=== PATIENT | female | born 1965 | race Caucasian/White ===

== ENCOUNTER 2019-12-06 11:44 | Day surgery (SDC) | payer BC, SELFPAY ==
[2019-11-29 13:01] VITALS: BMI 31.0
--- NOTE | 2019-12-04 09:12 | HO.ANESPROP2 ---
Documented by User: Deirdreher Harrisney 12/04/19 09:13 HPI - Anesthesia Eval Consult details Narrative: 54yo F for Colonoscopy PMFSH Past Medical History Medical History Breast cancer, right History of depression History of superficial phlebitis Family History Family History Mother Breast cancer Paternal Grandfather Heart problem Sister Cirrhosis of liver not due to alcohol Sister No problems noted. Sister No problems noted. Sister No problems noted. Daughter Cirrhosis of liver not due to alcohol Daughter No problems noted. Brother HTN (hypertension) Post traumatic stress disorder (PTSD) Cardiomyopathy Surgical History Surgical History H/O left knee surgery History of lumpectomy of right breast Social History Social History Do you presently have visiting nurse or other home services: No Smoking Status: Never smoker Second Hand Smoke Exposure: No Use of substances other than those prescribed or required for medical reasons: No Have you been hit, kicked, punched, or otherwise hurt by someone within the past year? If so, by whom?: No Advance Directives: Yes Advance Directives Information Provided: No Advance Directives on File: No Meds Allergies Allergy/AdvReac Type Severity Reaction Status Date / Time No Known Allergies Allergy Unverified 11/29/19 12:58 Home Medications Medication Instructions Recorded Confirmed Type aspirin [Aspir-81] 81 mg PO DAILY 11/29/19 11/29/19 History calcium citrate 250 mg PO DAILY 11/29/19 11/29/19 History cholecalciferol (vitamin D3) 25 mcg PO DAILY 11/29/19 11/29/19 History [Vitamin D3] tamoxifen 1 tab PO DAILY 11/29/19 11/29/19 History Exam Exam Date and Time: December 04, 201912 Height,Weight and Vital Signs: Height 5 ft 7 in Weight 89.811 kg Pertinent Lab Results Pertinent Lab Results: Laboratory Tests 08/20/19 08/20/19 09:23 09:23 WBC 6.0 Hgb 12.6 Hct 39.1 Plt Count 274 Sodium 139 Potassium 4.8 Chloride 105 BUN 16 Creatinine 0.74 Assessment and Plan Assessment Anesthesia Assessment: Chart Reviewed Documented by User: Joe Bran MD 12/06/19 12:27 PMFSH Past Medical History Medical History Breast cancer, right History of depression History of superficial phlebitis Family History Family History Mother Breast cancer Paternal Grandfather Heart problem Sister Cirrhosis of liver not due to alcohol Sister No problems noted. Sister No problems noted. Sister No problems noted. Daughter Cirrhosis of liver not due to alcohol Daughter No problems noted. Brother HTN (hypertension) Post traumatic stress disorder (PTSD) Cardiomyopathy Surgical History Surgical History H/O left knee surgery History of lumpectomy of right breast Social History Social History Do you presently have visiting nurse or other home services: No Smoking Status: Never smoker Second Hand Smoke Exposure: No Use of substances other than those prescribed or required for medical reasons: No Have you been hit, kicked, punched, or otherwise hurt by someone within the past year? If so, by whom?: No Advance Directives: Yes Advance Directives Information Provided: No Advance Directives on File: No Meds Allergies Allergy/AdvReac Type Severity Reaction Status Date / Time No Known Allergies Allergy Unverified 11/29/19 12:58 Home Medications Medication Instructions Recorded Confirmed Type aspirin [Aspir-81] 81 mg PO DAILY 11/29/19 11/29/19 History calcium citrate 250 mg PO DAILY 11/29/19 11/29/19 History cholecalciferol (vitamin D3) 25 mcg PO DAILY 11/29/19 11/29/19 History [Vitamin D3] tamoxifen 1 tab PO DAILY 11/29/19 11/29/19 History Exam Airway Mallampati Class: III TM Dist: >3cm Neck ROM: Full Loose/Missing/Broken Teeth: No Heart: rrr Lungs: nl Other: ao Assessment and Plan Assessment Anesthesia Assessment: Anesthesia Plan Discussed and Chart Reviewed Final Anesthetic Review NPO: Yes ASA Class: II Final Preanesthetic Review: No Changes in Pt Med Stat, Meds/Allgs Chart Reviewed, Consent Obtained/Reviewed and Anes Risks/Benef Reviewed Patient Risk: Low Procedure Risk: Low Anesthetic Plan Anesthetic Plan: MAC: Disposition: Standard PACU
[2019-12-06 12:05] VITALS: BP 129/66; PULSE 58; RESP 16; TEMP 36.6; O2SAT 97
[2019-12-06] MEDS: Lactated Ringers 1,000 ML 100 ML IVCONT (12:15)
--- NOTE | 2019-12-06 13:06 | MHC.SHP ---
Pre-Procedural Eval Section A The patient is an INPATIENT: No The History & Physical has been completed within 30 days and I have reviewed it.: No Section B Chief Complaint: Screening Details of Present Illness: Colon cancer screening, Breast Cancer Relevant Family History (Specify if Yes): No Relevant Social History: None Present Medications: see Short Stay Collaborative assessment Medical History: Significant History (Breast cancer 3 years ago--Genetics neg) History of Previous Operations: No relevant previous surgery Allergies: Allergies Allergy/AdvReac Type Severity Reaction Status Date / Time No Known Allergies Allergy Unverified 11/29/19 12:58 Review of Systems Sugical H&P ROS: Negative: Constitution, Cardiovascular, Respiratory and Gastrointestinal Exam Surgical H&P Exam: Normal: HEENT, Normal: Heart, Normal: Lungs, Normal: Extremities and Normal: Abdomen Plan Diagnosis/Plan: Unchanged (colonoscopy) Patient has been examined and remains a candidate for the planned procedure--yes
[2019-12-06 13:42] VITALS: BP 107/66; PULSE 72; RESP 16; TEMP 36.1; O2SAT 97
[2019-12-06 13:57] VITALS: BP 116/46; PULSE 63; RESP 16; O2SAT 100
[2019-12-06 14:06] VITALS: BP 113/62; PULSE 57; RESP 16; TEMP 36.1; O2SAT 100
--- NOTE | 2019-12-06 21:04 | OP_ITS ---
SURGEON: Aliza Aldana MD PREOPERATIVE DIAGNOSIS: Colon cancer screening, history of breast cancer. POSTOPERATIVE DIAGNOSIS: Findings, normal exam. PROCEDURE PERFORMED: Colonoscopy. ESTIMATED BLOOD LOSS: None. COMPLICATIONS: No complications. ANESTHESIA: Monitored. ANESTHESIOLOGIST: Dr. Martin.Dr. Martin. ASSISTANTS: No assistant unit forester. SPECIMENS: No specimens removed. [employer] OFFICER: Dr. Aldana. FINDINGS: Digital rectal exam revealed sphincter tone to be adequate. Video colonoscope was introduced without difficulty. It was navigated into the rectosigmoid, sigmoid on up through descending, transverse, ascending colon. With gentle extrinsic abdominal pressure, we were able to navigate into the cecal cap. Appendiceal orifice was seen. Ileocecal valve was seen. Few areas were flushed and suctioned and good mucosal detail was seen. Circular rotational views on withdrawing the scope. Anorectal verge was clear. No mucosal lesions seen. PLAN AND CURRENT RECOMMENDATIONS: Repeat asymptomatic screening in this patient with the history of breast cancer will be 5 years. GRAFT OR IMPLANTS: No grafts or implants. CONDITION: Postprocedure, stable. Aliza Aldana MD MEN/MODL / [id number] MTDD
== END 2019-12-06 14:42 | disposition home or self-care (01) ==
PROVIDERS: Internal Medicine Gastroenterology; PCP Internal Medicine; Visit Provider Internal Medicine
PROC: 0DJD8ZZ Inspection of Lower Intestinal Tract, Via Natural or Artificial Opening Endoscopic (ICD-10-PCS; CPT 45378; principal; 2019-12-06 12:50)
DX: Z12.11 Encounter for screening for malignant neoplasm of colon (principal); C50.911 Malignant neoplasm of unspecified site of right female breast; Z79.810 Long term (current) use of selective estrogen receptor modulators (SERMs); Z80.3 Family history of malignant neoplasm of breast; Z79.82 Long term (current) use of aspirin; Z79.899 Other long term (current) drug therapy
CPT/HCPCS: 45378

== ENCOUNTER 2020-01-28 09:38 | Outpatient (REF) | payer BC, SELFPAY ==
[2020-01-31 17:57] LABS: HPV mRNA E6/E7 Not Detected (Not Detected)
== END 2020-01-28 09:39 | disposition home or self-care (01) ==
LOC: HO.LAB 09:38
PROVIDERS: Visit Provider Obstetrics & Gynecology
DX: Z01.419 Encounter for gynecological examination (general) (routine) without abnormal findings (principal)
CPT/HCPCS: 87624; 88142

== ENCOUNTER → 2020-02-26 14:45 | Outpatient (BNVA) | payer BC, SELFPAY | PROVIDERS: PCP Internal Medicine; Visit Provider Physician Assistant | DX: Z76.89 Persons encountering health services in other specified circumstances (principal) ==

== ENCOUNTER → 2021-01-29 15:50 | Outpatient (BNVA) | payer BC, SELFPAY | PROVIDERS: PCP Hospitalist; Visit Provider Obstetrics & Gynecology ==

== ENCOUNTER 2021-06-05 10:32 | Outpatient (REF) | payer BC, SELFPAY ==
[2021-06-05 11:35] LABS: Hematocrit 39.4 % (37.0-47.0); Hemoglobin 12.6 g/dl (12.0-16.0); Mean Corpuscular Hemoglobin 29.5 pg (27.0-33.0); Mean Corpuscular Volume 92.3 fL (80.0-98.0); Platelet Count 280 X10*3/uL (160-400); Red Blood Count 4.27 X10*6/uL (4.20-5.50); Red Cell Distribution Width 12.5 % (11.0-16.0); White Blood Count 6.4 X10*3/uL (4.8-10.8)
[2021-06-05 12:22] LABS: Alanine Aminotransferase 13 U/L (0-31); Albumin Level 3.7 g/dL (3.5-5.0); Alkaline Phosphatase 49 U/L (39-117); Anion Gap 12 (12-20); Aspartate Amino Transferase 15 U/L (5-31); Bilirubin Direct 0.3 mg/dL (0.0-0.5); Bilirubin Total 0.9 mg/dL (0.0-1.0); Blood Urea Nitrogen 14 mg/dL (9-16); Calcium 9.7 mg/dL (8.4-10.2); Carbon Dioxide 27 mmol/L (22-29); Chloride 106 mmol/L (96-108); Estimated Glomerular Filt Rate > 60; Glucose Fasting 81 mg/dL (60-99); Sodium 140 mmol/L (135-145); Total Protein 6.7 g/dL (6.5-8.0)
[2021-06-05 12:32] LABS: TSH reflex Free T4 1.94 uIU/mL (0.32-4.0)
== END 2021-06-05 10:33 | disposition home or self-care (01) ==
LOC: HO.LAB 10:32
PROVIDERS: PCP Hospitalist; Visit Provider Hospitalist
DX: Z00.00 Encounter for general adult medical examination without abnormal findings (principal)
CPT/HCPCS: 36415; 80053; 80076; 82248; 84443; 85027

== ENCOUNTER 2021-12-10 11:58 | Outpatient (REF) | payer BC, SELFPAY ==
[2021-12-10 12:58] LABS: Influenza A PCR NEGATIVE (Negative); Influenza B PCR NEGATIVE (Negative); Resp Syncy Virus RNA Qual PCR NEGATIVE (Negative); SARS COV2 PCR INHOUSE NEGATIVE (Negative)
== END 2021-12-10 11:59 | disposition home or self-care (01) ==
LOC: HO.LNP 11:58
PROVIDERS: Visit Provider Nurse Practitioner Family
DX: Z20.822 Contact with and (suspected) exposure to COVID-19 (principal); J06.9 Acute upper respiratory infection, unspecified
CPT/HCPCS: 0241U

== ENCOUNTER 2022-03-01 08:47 | Outpatient (REF) | payer BC, SELFPAY ==
[2022-03-01 11:59] LABS: TSH reflex Free T4 1.97 uIU/mL (0.32-4.0)
== END 2022-03-01 08:48 | disposition home or self-care (01) ==
LOC: HO.HMGCLDS 08:47
PROVIDERS: PCP Hospitalist; Visit Provider Nurse Practitioner Family
DX: R22.1 Localized swelling, mass and lump, neck (principal)
CPT/HCPCS: 36415; 84443

== ENCOUNTER 2022-03-01 13:03 | Outpatient (REF) | payer BC, SELFPAY ==
--- NOTE | ~2022-03-01 | US_ITS ---
EXAMINATION: US SOFT TISSUE NECK CLINICAL INFORMATION: Localized swelling, mass and lump. COMPARISON: None TECHNIQUE: Ultrasound of the neck soft tissues is performed with high- frequency vee-scale imaging and color Doppler. FINDINGS: THYROID BED: The thyroid gland appears symmetrical in size and echotexture. Imaging of the anterior and lower neck reveals no soft tissue swelling, mass or abnormal lymph nodes. US/US soft tiss head and/or neck IMPRESSION: No abnormal soft tissue mass, lymph nodes or fluid seen in anterior thyroid neck.
== END 2022-03-01 13:04 | disposition home or self-care (01) ==
LOC: HO.HMGCX 13:03
PROVIDERS: PCP Hospitalist; Visit Provider Nurse Practitioner Family
DX: R22.1 Localized swelling, mass and lump, neck (principal)
CPT/HCPCS: 76536

== ENCOUNTER 2023-02-10 14:47 | Outpatient (AMB) | payer BC, SELFPAY ==
[2023-02-10 14:48] VITALS: BP 122/74; BMI 32.6
--- NOTE | 2023-02-10 14:48 | A.OFFVIS_ITS ---
Intake Vital Signs 02/10/23 14:48 Height 5 ft 7 in Weight 208 lb BMI 32.6 BP 122/74 Intake Visit Reasons: Annual Intake Note: no concerns Manager Spa Required: No Information Interpreted: non-clinical & clinical Proposal Consultant: Proposal Consultant Present (Maria Esther JULIEN) Accompanied by: Self / Same As Patient Allergies No Known Allergies Allergy (Verified 02/10/23 14:54) Post menopausal: Yes HPI HPI Comments History of Present Illness Details Presenting for annual exam. No complaints. Last Pap/HPV was negative in 02/09 Last Mammogram was done this year an outside facility and was negative according to the patient Last Colonoscopy was in 12/10, the recommendation was to repeat in 5 years [facility] Medical History Acid reflux History of superficial phlebitis History of depression Breast cancer, right Surgical History History of lumpectomy of right breast H/O left knee surgery Family History Mother Breast cancer Paternal Grandfather Heart problem Sister Cirrhosis of liver not due to alcohol Sister No problems noted. Sister No problems noted. Sister No problems noted. Daughter Cirrhosis of liver not due to alcohol Daughter No problems noted. 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 Sexual orientation: Straight/Heterosexual Gender identity: Female Female Reproductive History Menstrual Age of Menarche: 12 Menopause type: natural Total pregnancies: 2 Full term: 2 Number of Living Children: 2 Date of last pap smear: 01/29/20 Review of Systems Const All systems reviewed & are unremarkable except as noted in HPI and below Card Reports as per HPI Resp Reports as per HPI GI Reports as per HPI and Reports no additional complaints Reports as per HPI Physical Exam Vital Signs: BMI result Body Mass Index 32.6 Const General: cooperative, healthy appearing and comfortable Chest Chest palpation & inspection: normal inspection of the chest and normal p alpation of entire chest wall Breast/axilla inspection: normal inspection of the breasts and normal inspection of the axillae Breast/axilla palpation: normal palpation of the breasts, normal palpation of the axillae and no axillary lymphadenopathy Resp Effort & Inspection: normal respiratory effort Auscultation: clear to auscultation bilaterally Percussion: percussion normal Cardio Palpation: normal PMI Rate: regular rate Rhythm: regular rhythm Heart sounds: no murmurs and no rubs Peripheral pulses: Peripheral pulses 2+ throughout GI Inspection: Yes normal to inspection Palpation (GI): Soft to palpation, nontender, no guarding, not rigid and No hepatosplenomegaly present Percussion: Yes normal to percussion Auscultation: normal bowel sounds Rectal Exam - Female: deferred General: Yes bladder normal to palpation External Female Exam: No lesion Speculum Exam - Vagina: normal appearance of the vagina, normal palpation, normal vaginal discharge and not erythematous Speculum Exam - Cervix: normal appearance of the cervix and normal palpation Bimanual exam- vagina & uterus: normal bimanual exam, normal palpation, uterine size normal, bladder normal to palpation, consistency normal and normal palpation Bimanual Exam- Adnexa, other: normal adnexae, no masses and no tenderness Assessment & Plan Assessment & Plan (1) Well woman exam: Code(s): Z01.419 - Encounter for gynecological examination (general) (routine) without abnormal findings Plan: Co testing not indicated this year. Counseled the patient about the recommended dietary allowance of 1200 mg of Calcium & 600 IU of vitamin D. Instructions given the patient to schedule next year screen Mammogram The patient was instructed to perform monthly self-breast exams and schedule annual exam in a year. All questions answered and the patient verbalized understanding. Coding Level of Care Code Est Pt Prev Care 40-64y(71935) Diagnoses Well woman exam Z01.419
== END 2023-02-10 15:11 | disposition home or self-care (01) ==
LOC: HO.HWS 14:47
PROVIDERS: PCP Family Medicine; Visit Provider Obstetrics & Gynecology
DX: Z01.419 Encounter for gynecological examination (general) (routine) without abnormal findings (principal)
CPT/HCPCS: 99396

== ENCOUNTER → 2023-02-10 14:47 | Outpatient (BNVA) | payer BC, SELFPAY | PROVIDERS: PCP Family Medicine; Visit Provider Obstetrics & Gynecology ==

== ENCOUNTER 2023-04-02 09:15 | Outpatient (AMB) | payer BC, SELFPAY ==
--- NOTE | 2023-04-02 10:20 | MHC.OFFWIV ---
Intake Vital Signs 04/02/23 10:21 Height 5 ft 7 in Weight 208 lb BMI 32.6 BP 140/80 H Blood Pressure Location Rt brachial Position Sitting Pulse 73 Pulse Source Pulse Oximeter Temp 98.2 F Temp Source Oral Pulse Oximetry (%) 98 Intake Visit Reasons: EST/rash all over body([phone]) Intake Note: Pt is here today c/o rash all over body Patient Tobacco Use Status: Never used Tobacco Allergies No Known Allergies Allergy (Verified 04/02/23 10:21) HPI EST/rash all over body([phone]) HPI Details Patient with a few weeks of small petechial lesions over bilateral lower extremities. She has been worked up by urgent Care, and is pending PCP appointment in 2 weeks to follow up with her labs, which all came back unremarkable except for positive JARAD. She reports no obvious bleeding otherwise, although she does give history of having a surface blood clot to the left foot, but denies DVT, and states that she normally has some pedal edema on the left lower leg with a sock line apparent ever since having left knee surgeries in the past. She states that the fluid in her leg/s do not appear different than normal. She denies fever chills, body aches, fatigue, joint pain, dark-colored or obvious bloody urine, nasal congestion, cough, shortness of breath or wheezing, numbness or tingling of her extremities, chest pain or abdominal pain or dark colored or coffee-ground stools, or other symptoms suggestive of systemic vasculitis or underlying disease. She is extremely anxious about this however, as she reports that it started initially in the lower legs and now is increased to include the entirety of her bilateral lower extremities. She does have a breast cancer history, and states that she is worried that this is cancerous, and is losing sleep from it. Her appointment with PCP is to transfer care from nurse practitioner to another PCP in the same group, and 2 weeks as the soonest they could see her apparently. Reviewed past medical history with the patient. [facility] Medical History Acid reflux History of superficial phlebitis History of depression Breast cancer, right Surgical History History of lumpectomy of right breast H/O left knee surgery Family History Mother Breast cancer Paternal Grandfather Heart problem Sister Cirrhosis of liver not due to alcohol Sister No problems noted. Sister No problems noted. Sister No problems noted. Daughter Cirrhosis of liver not due to alcohol Daughter No problems noted. 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 Sexual orientation: Straight/Heterosexual Gender identity: Female Female Reproductive History Menstrual Age of Menarche: 12 Review of Systems Const All systems reviewed & are unremarkable except as noted in HPI and below Physical Exam Vital Signs: Last Vital Signs Temp 98.2 F 04/02/23 10:21 Pulse 73 04/02/23 10:21 BP 140/80 H 04/02/23 10:21 Pulse Ox 98 04/02/23 10:21 BMI result Body Mass Index 32.6 Const General: cooperative, healthy appearing, comfortable, no acute distress, alert, awake, Physically active, anxious and well groomed; No diaphoretic, ill appearing, intoxicated appearing, poor hygiene or tired appearing Nutritional Appearance: average body habitus Orientation/consciousness: patient oriented x3 Limitations: no limitations Eyes General: appearance normal, both eyes and all related structures Resp Effort & Inspection: normal respiratory effort, able to speak in complete sentences, no audible wheezes, no cough, no grunting, not labored, no nasal flaring, no retractions and symmetric chest movement Cardio Rate: regular rate Rhythm: regular rhythm Skin Other: Scattered nonblanching petechial lesions throughout the bilateral lower extremities, all small and only a few mm in size Neuro General: patient oriented x3 Extrem Right lower extremity: full ROM, edema Details: non-pitting and foot Details: vascular exam Details: posterior tibial pulse present; no cyanosis; no cyanosis Left lower extremity: full ROM, edema Details: non-pitting and foot Details: warmth and vascular exam Details: posterior tibial pulse present; no cyanosis Psych Appearance: grossly normal Mental Status: mental status grossly normal Speech and movement: Normal speech and movement present Affect: normal affect Attitude: cooperative Thought process: Normal thought process present Insight: Good insight present (Psych) Judgement: Good judgement present (Psych) Results AMB Urinalysis, Automated UA Leukoctes 70 Deangelo/uL Last Edit by Aurora Gunter CMA on 04/02/23 11:27 UA Nitrite Negative Last Edit by Aurora Gunter CMA on 04/02/23 11:27 UA Urobilinogen 0.2 mg/dL Last Edit by Aurora Gunter CMA on 04/02/23 11:27 UA Protein 0 mg/dL Last Edit by Aurora Gunter CMA on 04/02/23 11:27 UA pH 6.0 Last Edit by Aurora Gunter CMA on 04/02/23 11:27 UA Blood 0 Jatinder/uL Last Edit by Aurora Gunter CMA on 04/02/23 11:27 UA Specific Hungry Horse 1.025 Last Edit by Aurora Gunter CMA on 04/02/23 11:27 UA Ketone Last Edit by Aurora Gunter CMA on 04/02/23 11:27 UA Bilirubin 0 mg/dL Last Edit by Aurora Gunter CMA on 04/02/23 11:27 UA Glucose 0 mg/dL Last Edit by Aurora Gunter CMA on 04/02/23 11:27 Results Reviewed Results Reviewed: Laboratory Last Values Urine pH (Auto) 6.0 04/02/23 11:24 Specific Hungry Horse (Auto) 1.025 04/02/23 11:24 Urine Protein (Auto) 0 mg/dL 04/02/23 11:24 Glucose (UA)(Auto) 0 mg/dL 04/02/23 11:24 Urine Blood (Auto) 0 Jatinder/uL 04/02/23 11:24 Urine Nitrite (Auto) Negative 04/02/23 11:24 Urine Bilirubin (Auto) 0 mg/dL 04/02/23 11:24 Urine Urobilinogen (Auto) 0.2 mg/dL 04/02/23 11:24 Leukocyte Esterase (Auto) 70 Deangelo/uL 04/02/23 11:24 Assessment & Plan Assessment & Plan (1) Cutaneous vasculitis: Code(s): 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 She does have some very mild pedal edema with the left worse than the right, which apparently has been normal for her since left knee surgery in the past. She has no other symptoms indicative of underlying disease or systemic vasculitis, and her urine test shows no blood on exam today. I did order a PT INR, as well as ANCA labs today. When these are back, I will forward them to Dr. Gimenez, who will be her new PCP. We discussed having an no salt intake, and monitoring her weight, and monitoring for any other changes until she can get into her primary care. I also advised that she call her primary care on Tuesday and let them know that she was at the walk-in and that I had advised that she be seen within the next week or so, so that they do not push her appointment out any further. She states that she does not have a judge clerk that could see her any sooner. She will likely need referral to Heme-Onc, which she can discuss with PCP at that time. Orders: Orders AMB Urinalysis Automated 04/02/23 Z13.9 - Encounter for screening, unspecified Prothrombin Time INR 04/02/23 R23.3 - Spontaneous ecchymoses ANCA Vasculitides 04/02/23 R23.3 - Spontaneous ecchymoses Coding Level of Care Code Est Pt Level 4 (67188) Diagnoses Cutaneous vasculitis L95.9
[2023-04-02 10:21] VITALS: BP 140/80; PULSE 73; TEMP 36.8; O2SAT 98; BMI 32.6
== END 2023-04-02 12:57 | disposition home or self-care (01) ==
PROVIDERS: PCP Family Medicine; Visit Provider Physician Assistant Medical
DX: L95.9 Vasculitis limited to the skin, unspecified (principal); R23.3 Spontaneous ecchymoses
CPT/HCPCS: 81003; 99214

== ENCOUNTER 2023-04-02 11:52 | Outpatient (REF) | payer BC, SELFPAY ==
[2023-04-02 13:46] LABS: Prothrombin Time 11.6 SEC (11.1-13.3)
[2023-04-04 13:34] LABS: Myeloperoxidase Antibody <1.0 AI; Proteinase 3 PR3 Antibodies <1.0 AI
== END 2023-04-02 11:53 | disposition home or self-care (01) ==
LOC: HO.HMGCLDS 11:52
PROVIDERS: PCP Family Medicine; Visit Provider Physician Assistant Medical
DX: R23.3 Spontaneous ecchymoses (principal)
CPT/HCPCS: 36415; 85610; 86021

== ENCOUNTER 2023-04-15 09:05 | Outpatient (AMB) | payer BC, SELFPAY ==
[2023-04-15 09:07] VITALS: BP 126/72; PULSE 71; RESP 12; O2SAT 97; BMI 32.6
--- NOTE | 2023-04-15 09:07 | MHC.PC.OV ---
Vital Signs 04/15/23 09:07 Height 5 ft 7 in Weight 208 lb BMI 32.6 BP 126/72 Blood Pressure Location Rt brachial Position Sitting Respiration 12 Pulse 71 Pulse Source Pulse Oximeter Pulse Oximetry (%) 97 Oxygen Delivery Method Room Air Intake Visit Reasons: CARLOS from [facility] Intake Note: Patient is here to transfer care from to . Patient reports she has been battling petechiae for about 2 weeks. Patient reports she was seen at [facility] and was also seen at [facility] had multiple labs drawn and now would like to know what her next steps are. 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 Required: No Accompanied by: Self / Same As Patient Allergies No Known Allergies Allergy (Verified 04/15/23 09:32) Medication List - Last Reconciled 04/15/23 by LYNN Parmar- calcium citrate 250 mg PO DAILY cholecalciferol (vitamin D3) (Vitamin D3) 25 mcg PO DAILY fluticasone propionate 50 mcg/actuation 1 spray intranasal DAILY Tobacco use date assessed: 05/24/22 Dental Screening Dental Screen Date: 04/15/23 Did you have a dental visit in the last 12 months?: No Did you have a dental problem in the last 6 months where you did not have access to dental care?: No Was dental information given to patient?: Patient has dentist (Dr. 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/ER/WA positive diagnosed January 2017 status post lumpectomy, completed radiation therapy 04/11/2017, completed tamoxifen therapy January 2022, Negative BRCA gene mutation 02/01/2017, GERD, MDD , seasonal allergies, vitamin-D deficiency Status post left knee surgery Specialists [facility] Health maintenance Colonoscopy 12/06/2019 normal, repeat in 5 years due to history of breast cancer (2024) Mammogram 01/20/2023 DEXA Pap/HPV negative January 2020 Last set of labs 06/05/2021 Here today,est care with me, c/o petechiae Two weeks ago, 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 went to for this - reports labs done reviewd today. 03/30/23, then 04/02/23 Only abnormal lab was JARAD yesterday it spontaneously resolved. Today the petechiae returned. Assoc sx include left leg feels tingly. admits sedentary job, wonders if stress or this caused her problem not taking RX meds does not smoke, not on estrogen. Denies chest pain or SOB. Denies neuro deficits. no etoh use no surgery or travel prior to onset denies trauma to abd or legs had a phlebitis in [place] in 2013 [facility] Medical History (Updated 04/15/23 @ 14:33 by Reyna Scott, [facility]) History of superficial phlebitis Breast cancer, right Surgical History History of lumpectomy of right breast H/O left knee surgery Family History Mother Breast cancer Paternal Grandfather Heart problem Sister Cirrhosis of liver not due to alcohol Sister No problems noted. Sister No problems noted. Sister No problems noted. Daughter Cirrhosis of liver not due to alcohol Daughter No problems noted. 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 1. Little interest or pleasure in doing things: not at all 2. Feeling down, depressed, or hopeless: not at all 3. Trouble falling or staying asleep, or sleeping too much: not at all 4. Feeling tired or having little energy: not at all 5. Poor appetite or overeating: not at all 6. Feeling bad about yourself - or that you are a failure or have let yourself or your family down: not at all 7. Trouble concentrating on things, such as reading the newspaper or watching television: not at all 8. Moving or speaking so slowly that other people could have noticed. Or the opposite - being so fidgety or restless that you have been moving around a lot more than usual: not at all 9. Thoughts that you would be better off or of hurting yourself in some way: not at all Total score: 0 Depression Screening Interpretation: Negative Depression Screening Done: Yes 29009 - PHQ-9 Billing: Yes Source: Developed by Drs. Addi Albright, Yaritza Johnson, Joseph Dey and colleagues, with an educational chris from [employer]. Thrive Questionnaire Date Thrive assessed: 04/15/23 I am a: Patient What is your living situation today?: I have a steady place to live Within the past 12 months, did the food you bought not last and you didn't have the money to get more?: Never true Within the past 12 months, did you worry whether your food would run out before you got money to buy more?: Never true Do you have trouble paying for medicines?: No Do you have trouble getting transportation to medical appointments?: No Do you have trouble paying your heating and electricity bill?: No Do you have trouble taking care of your child, family member or friend?: No Do you have trouble with day-to-day activities such as bathing, preparing meals, shopping, managing finances, etc.?: No Are you currently unemployed and looking for a job?: No Are you interested in more education?: No Please select the resources that you would like help with: None Currently or been in a relationship where the following occur: no concerns reported THRIVE Score: 0 AUDIT C Alcohol Use Questionnaire (AUDIT-C) 1. How often do you have a drink containing alcohol?: Never 3. How often do you have six or more drinks on one occasion?: Never Total Score: 0 GRAYSON-7 AMB Questionnaire GRAYSON-7 Date GRAYSON - 7 assessed: 04/15/23 Feeling nervous, anxious, or on edge: 2 = More than half the days Not being able to stop or control worryin = More than half the days Worrying too much about different things: 2 = More than half the days Trouble relaxin = More than half the days Being so restless that it is hard to sit still: 0 = Not at all Becoming easily annoyed or irritable: 0 = Not at all Feeling afraid as if something awful might happen: 2 = More than half the days Total GRAYSON-7 score (0-4 normal; 5-9 mild; 10-14 moderate; 15-21 severe): 10 Source: Developed by Drs. Addi Albright, Yaritza Johnson, Joseph Dey and colleagues, with an educational chris from [employer]. GRAYSON-7 Assessment Billing GRAYSON-7 Assessment Tool: GRAYSON-7 Assessment 92713 Review of Systems Const All systems reviewed & are unremarkable except as noted in HPI and below Physical exam (Primary Care) Vital Signs: Last Vital Signs Pulse 71 04/15/23 09:07 Resp 12 04/15/23 09:07 BP 126/72 04/15/23 09:07 Pulse Ox 97 04/15/23 09:07 Oxygen Delivery Method Room Air 04/15/23 09:07 BMI result Body Mass Index 32.6 Tobacco/Smoking Status: Tobacco use Status Tobacco use date assessed 05/24/22 04/15/23 09:12 Patient Tobacco Use Status Never used Tobacco 04/15/23 09:21 e-Cigarette/Vaping Use Never Used 04/15/23 09:21 PHQ-9: PHQ-9 Score PHQ-9: Total score 0 04/15/23 14:34 Depression Screening Interpretation: Negative Thrive Assessment: Date of Thrive Assessment Date Thrive assessed 04/15/23 04/15/23 09:23 Currently or been in a relationship where the following occur: no concerns reported Const Other: awake alert RRR LS CTAB BLE + petechiae RLE>LLE, RLE +1 edema from toes to ankle, nonpalp PP, dusky, toes cool to touch. LLE decreased but palp PP, toes mildly cool to touch,trace edema Assessment and Plan Assessment & Plan (1) Petechial eruption: Code(s): R23.3 - Spontaneous ecchymoses Plan: BLE, concern for DVT. R/O US today done and negative. Patient is aware I am unsure of the cause for her petechial like rash present on exam today. We have discussed the treatment plan going forward. We will place referral both to dermatology as well as Rheumatology. The thought is that she may be able to get into Dermatology sooner and get an answer. If this is the case she will cancel the appointment with Rheumatology which will likely be booked out several months. She does have the positive JARAD however it is a weak positive and aware that it is nonspecific. I have advised her to take pictures of the rash to document this should not be present when she has an appointment with Dermatology or Rheumatology. (2) Edema: Code(s): R60.9 - Edema, unspecified Qualifiers: Edema type: localized Qualified Code(s): R60.0 - Localized edema (3) Breast cancer: Comment: right ductal carcinoma in situ lower outer quad/ER/WA +, BRCA negative dx 01/2017, status post lumpectomy, completed radiation therapy 04/11/2017, completed tamoxifen therapy January 2022. Managed by [facility] Code(s): C50.919 - Malignant neoplasm of unspecified site of unspecified female breast Qualifiers: Breast location: lower outer quadrant of breast Estrogen receptor status: positive Laterality: right Patient sex: female Qualified Code(s): C50.511 - Malignant neoplasm of lower-outer quadrant of right female breast; Z17.0 - Estrogen receptor positive status [ER+] (4) MDD (major depressive disorder), recurrent episode: Comment: PHQ negative today. Not currently on medications. We will continue to follow at future visits to ensure that symptoms do not come back. Code(s): F33.9 - Major depressive disorder, recurrent, unspecified Qualifiers: Major depression episode severity: mild Qualified Code(s): F33.0 - Major depressive disorder, recurrent, mild (5) JARAD positive: Comment: 1:80 nucleolar 03/2023 Code(s): R76.8 - Other specified abnormal immunological findings in serum Plan This note is constructed using voice recognition software. While every effort has been made to ensure accuracy in intelligence group supervisor, still errors may have been included Sometimes, these errors may affect the content or meaning of the given sentence . Total time spent caring for the patient today was 45 minutes. This includes time spent before the visit reviewing the chart, time spent during the visit, and time spent after the visit on documentation Patient will see me again in May as scheduled sooner if needed. Orders: Orders US venous duplex LE BI Today C50.919 - Malignant neoplasm of unspecified site of unspecified female breast, F33.9 - Major depressive disorder, recurrent, unspecified Referrals Dermatology Referral R23.3 - Spontaneous ecchymoses Rheumatology Referral R23.3 - Spontaneous ecchymoses, R76.8 - Other specified abnormal immunological findings in serum Coding Level of Care Code Est Pt Level 5 (36145) Diagnoses Petechial eruption R23.3 Localized edema R60.0 Edema type: localized Malignant neoplasm of lower-outer quadrant of right breast of female, estrogen receptor positive C50.511; Z17.0 Breast location: lower outer quadrant of breast Estrogen receptor status: positive Laterality: right Patient sex: female Mild episode of recurrent major depressive disorder F33.0 Major depression episode severity: mild JARAD positive R76.8 Additional Codes GRAYSON-7 Assessment Billing - GRAYSON-7 Assessment Tool: GRAYSON-7 Assessment 55001 ([id number])
== END 2023-04-15 10:20 | disposition home or self-care (01) ==
PROVIDERS: PCP Family Medicine; Visit Provider Nurse Practitioner Family
DX: R23.3 Spontaneous ecchymoses (principal); C50.511 Malignant neoplasm of lower-outer quadrant of right female breast; F33.0 Major depressive disorder, recurrent, mild; R60.0 Localized edema; Z17.0 Estrogen receptor positive status [ER+]; R76.8 Other specified abnormal immunological findings in serum
CPT/HCPCS: 99215

== ENCOUNTER 2023-04-15 11:03 | Outpatient (REF) | payer BC, SELFPAY ==
--- NOTE | ~2023-04-15 | US_ITS ---
EXAMINATION: BILATERAL LOWER EXTREMITY DEEP VENOUS ULTRASOUND CLINICAL INFORMATION: Bilateral lower extremity edema. COMPARISON: No similar prior examinations are available for comparison. TECHNIQUE: Duplex Doppler imaging with compression maneuvers were performed of the bilateral lower extremity deep venous systems. FINDINGS: The bilateral visualized common femoral, femoral and popliteal veins demonstrate normal compressibility and color flow without evidence of venous thrombosis. Visualized portions of the bilateral calf veins demonstrate normal color fill-in suggesting patency. There is no evidence of a Rosenberg's cyst. US/US venous duplex LE BI IMPRESSION: No evidence of deep venous thrombosis involving the bilateral lower extremities.
== END 2023-04-15 11:04 | disposition home or self-care (01) ==
LOC: HO.US 11:03
PROVIDERS: Visit Provider Nurse Practitioner Family
DX: R60.0 Localized edema (principal); F33.9 Major depressive disorder, recurrent, unspecified
CPT/HCPCS: 93970

== ENCOUNTER 2023-05-04 10:56 | Outpatient (REF) | payer BC, SELFPAY ==
--- NOTE | ~2023-05-04 | XR_ITS ---
EXAMINATION: XR CHEST CLINICAL INFORMATION: Cough. COMPARISON: None available. TECHNIQUE: 2 views of the chest were obtained. FINDINGS: No significant abnormality is noted involving the heart, lungs, mediastinum, bony thorax or soft tissues. XR/XR chest 2V IMPRESSION: Unremarkable chest examination.
[2023-05-04 12:27] LABS: Erythrocyte Sedimentation Rate 11 MM/HR (0-20)
== END 2023-05-04 10:57 | disposition home or self-care (01) ==
LOC: HO.LAB 10:56
PROVIDERS: PCP Nurse Practitioner Family; Visit Provider Physician Assistant
DX: M31.0 Hypersensitivity angiitis (principal); R05.9 Cough, unspecified
CPT/HCPCS: 36415; 71046; 85652; 86140

== ENCOUNTER 2023-05-09 14:47 | Outpatient (AMB) | payer BC, SELFPAY ==
[2023-05-09 15:03] VITALS: BP 112/60; PULSE 66; O2SAT 97; BMI 32.8
--- NOTE | 2023-05-09 15:03 | MHC.OFFVIS ---
Intake Vital Signs 05/09/23 15:03 Height 5 ft 7 in Weight 209 lb 10.554 oz BMI 32.8 BP 112/60 Blood Pressure Location Rt brachial Position Sitting Pulse 66 Pulse Source Pulse Oximeter Pulse Oximetry (%) 97 Oxygen Delivery Method Room Air Intake Visit Reasons: Spontaneous ecchymoses/abnormal lab Intake Note: New patient presents today for +JARAD consult. 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 Patient states that on 03/30 she came back home from work and noticed that both her legs and feet were covered in small reddish dots associated with burning and mild swelling of her ankles. Bilateral lower extremity ultrasound was negative for DVT. 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 labs showed negative MPO /PR3, positive JARAD 1-80 nucleolar chest x-ray was negative.She was started on a tapering course of prednisone starting at 60 mg daily tapered of in about 9 days with resolution of the rashes on her feet but shortly after she started having rashes on her arms abdomen and breasts. those are also improving. Three days ago She was started on colchicine by her servomechanism designer. She cannot tell whether she is improving with that. She denies any side effects related to prednisone or colchicine. Patient denies any cough, shortness of breath, blood or froth in urine. Denies fevers or Unintentional weight loss. she denies taking any new medications prior to development of her rashes. She stated that in January she had a cough that lasted about a month then self-resolved. She denies any abdominal pain. She is unaware of any family history of an autoimmune rheumatic disease. Patient had 2 pregnancies with no abortions or miscarriages. [facility] Medical History History of superficial phlebitis Breast cancer, right Surgical History History of lumpectomy of right breast H/O left knee surgery Family History Mother Breast cancer Paternal Grandfather Heart problem Sister Cirrhosis of liver not due to alcohol Sister No problems noted. Sister No problems noted. Sister No problems noted. Daughter Cirrhosis of liver not due to alcohol Daughter No problems noted. 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 Sexual orientation: Straight/Heterosexual Gender identity: Female Cognitive needs: No Hearing needs: No Vision needs: Yes (wears glasses) Female Reproductive History Menstrual Age of Menarche: 12 Review of Systems Const Denies fever(s) and Denies weight loss Card Denies dyspnea Resp Denies cough and Denies dyspnea GI Denies abdominal pain Denies hematuria Musc Denies arthralgias Skin/Breast Reports lesions, Reports rash and Reports unusual bruising Psych Reports anxiety Physical Exam Vital Signs: Last Vital Signs Pulse 66 05/09/23 15:03 BP 112/60 05/09/23 15:03 Pulse Ox 97 05/09/23 15:03 Oxygen Delivery Method Room Air 05/09/23 15:03 BMI result Body Mass Index 32.8 Const General: cooperative, healthy appearing and comfortable HEENT Head: Yes normocephalic and Yes atraumatic Mouth: moist mucous membranes Resp Effort & Inspection: normal respiratory effort and able to speak in complete sentences Auscultation: clear to auscultation bilaterally Skin Other: Extrem Other: No active synovitis Normal nail fold capillaroscopy Results Reviewed Results Reviewed: Skin biopsy 04/2023? Left lateral proximal pretibial region? Changes consistent with early/evolving leukocytoclastic vasculitis Comment:? Direct immunofluorescence may be helpful in further evaluation of this process.? No fungi are detected with PAS stain JARAD 80 nucleolar HIV 1/2 negative? 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 Skin biopsy confirming leukocytoclastic vasculitis. Will order comprehensive serology to screen for underlying systemic vasculitis. Picture however seems rather consistent with non-systemic vasculitis. Patient just started colchicine a few days ago. I suggested a longer steroid taper 6-8 weeks, patient will reach out to her servomechanism designer and get back to me (2) JARAD positive: Comment: 1:80 nucleolar 03/2023 Code(s): R76.8 - Other specified abnormal immunological findings in serum Plan: will check further sub serologies Plan I spent 56 minutes reviewing patient's chart, evaluating patient, ordering diagnostic workup, counseling patient and documenting in the chart Orders: Orders Complete Blood Count Auto Diff 05/09/23 L95.9 - Vasculitis limited to the skin, unspecified Comprehensive Met. Panel 05/09/23 L95.9 - Vasculitis limited to the skin, unspecified Erythrocyte Sedimentation Rate 05/09/23 L95.9 - Vasculitis limited to the skin, unspecified Immunofixation Pnl, Serum 05/09/23 L95.9 - Vasculitis limited to the skin, unspecified HLA B27 05/09/23 M45.9 - Ankylosing spondylitis of unspecified sites in spine Complement C3 05/09/23 M32.9 - Systemic lupus erythematosus, unspecified Protein Creatinine Ratio, Ur 05/09/23 M32.9 - Systemic lupus erythematosus, unspecified Scleroderma 12 Panel 05/09/23 M34.9 - Systemic sclerosis, unspecified C1q Antibody IgG 05/09/23 C1Q Complement Component 05/09/23 L95.9 - Vasculitis limited to the skin, unspecified C Reactive Protein 05/09/23 L95.9 - Vasculitis limited to the skin, unspecified Hepatitis A,B,C Profile 05/09/23 Z11.59 - Encounter for screening for other viral diseases Protein Electrophoresis, Serum 05/09/23 L95.9 - Vasculitis limited to the skin, unspecified ANCA Vasculitides 05/09/23 L95.9 - Vasculitis limited to the skin, unspecified Anti Extractable Nuclear Ag 05/09/23 M32.9 - Systemic lupus erythematosus, unspecified Anti DNA DS Antibody 05/09/23 M32.9 - Systemic lupus erythematosus, unspecified Complement C4 05/09/23 M32.9 - Systemic lupus erythematosus, unspecified DNA Double Stranded-Crithidia 05/09/23 M32.9 - Systemic lupus erythematosus, unspecified Sjogren's Antibodies 05/09/23 M32.9 - Systemic lupus erythematosus, unspecified UA w Microscopic 05/09/23 M32.9 - Systemic lupus erythematosus, unspecified Cyclic Citrullinated Peptide 05/09/23 M05.20 - Rheumatoid vasculitis with rheumatoid arthritis of unspecified site HLA B51 Behcet's Disease 05/09/23 L95.9 - Vasculitis limited to the skin, unspecified Coding Level of Care Code New Pt Level 5 (64033) Diagnoses Vasculitis determined by biopsy of skin L95.9 JARAD positive R76.8
== END 2023-05-09 15:49 | disposition home or self-care (01) ==
PROVIDERS: PCP Nurse Practitioner Family; Visit Provider Student in an Organized Health Care Education/Training Program
DX: L95.9 Vasculitis limited to the skin, unspecified (principal); R76.8 Other specified abnormal immunological findings in serum
CPT/HCPCS: 99205

== ENCOUNTER 2023-05-09 14:47 | Outpatient (REF) | payer BC, SELFPAY ==
[2023-05-09 16:14] LABS: MANUAL DIFF FLAG NO
[2023-05-09 16:58] LABS: Basophils Absolute Auto 0.1 X10*3/uL (0.0-0.2); Basophils Percent Auto 0.6 % (0-2); Eosinophils Absolute Auto 0.4 X10*3/uL (0.0-0.4); Eosinophils Percent Auto 4.3 % (0-4); Hematocrit 43.1 % (37.0-47.0); Hemoglobin 14.1 g/dl (12.0-16.0); Imm Gran Abs Auto 0.05 X10*3/uL (0.00-0.03); Imm Gran Pct Auto 0.6 % (0.0-0.4); Lymphocytes Absolute Auto 3.3 X10*3/uL (1.2-4.9); Lymphocytes Percent Auto 38.8 % (20-40); Mean Corpuscular HGB Conc 32.7 g/dl (31.0-35.0); Mean Corpuscular Hemoglobin 29.4 pg (27.0-33.0); Monocytes Absolute Auto 0.8 X10*3/uL (0.1-1.2); Monocytes Percent Auto 9.7 % (2-11); Neutrophils Absolute Auto 3.9 x10*3/uL (2.0-8.3); Platelet Count 309 X10*3/uL (160-400); Red Blood Count 4.79 X10*6/uL (4.20-5.50); White Blood Count 8.4 X10*3/uL (4.8-10.8)
[2023-05-09 17:35] LABS: Alanine Aminotransferase 46 U/L (0-31); Albumin Level 3.8 g/dL (3.5-5.0); Alkaline Phosphatase 101 U/L (39-117); Anion Gap 11 (12-20); Aspartate Amino Transferase 31 U/L (5-31); Bilirubin Total 0.6 mg/dL (0.0-1.0); Blood Urea Nitrogen 14 mg/dL (9-16); C Reactive Protein 0.59 mg/dL (< or = 0.50); Calcium 9.3 mg/dL (8.4-10.2); Carbon Dioxide 28 mmol/L (22-29); Chloride 104 mmol/L (96-108); Estimated Glomerular Filt Rate > 60; Glucose Random 101 mg/dL (60-115); Potassium 3.8 mmol/L (3.3-5.1); Sodium 139 mmol/L (135-145)
[2023-05-09 17:44] LABS: Appearance Urine Clear; Color Urine Yellow; Glucose Urine UA Negative (Negative); Leukocyte Esterase Urine Negative (Negative); Nitrite Urine Negative (Negative); Specific Gravity - Urine 1.025 (1.005-1.025); Urine Blood Negative (Negative); Urine Ketones Negative (Negative); Urine Protein Negative (Neg-Trace)
[2023-05-09 17:50] LABS: Bacteria Urine None Seen (None Seen); Hyaline Casts Urine 0-2 /LPF (0-2); RBC Urine 0-2 /HPF (0-2); WBC Urine 0-5 /HPF (0-5)
[2023-05-09 18:08] LABS: Creatinine Urine 148.69 mg/dL; Total Protein Urine Random < 7 mg/dL (<12)
[2023-05-09 18:58] LABS: Erythrocyte Sedimentation Rate 7 MM/HR (0-20)
[2023-05-10 08:20] LABS: HBc Num1 0.07 S/CO (0.00-0.79); HBsAGNum1 0.38 S/CO (0.00-0.99); Hepatitis A Antibody IgM 0.29 Index (0-0.79); Hepatitis B Core Antibody Nonreactive (Nonreactive); Hepatitis B Surface Antigen Negative (Negative); ~HepC Num1 0.06 S/CO (0.00-0.79); ~Hepatitis A Antibody IgM Nonreactive (Nonreactive); ~Hepatitis B Surface Antibody NONREACTIVE (Nonreactive); ~Hepatitis C Antibody Nonreactive (Nonreactive)
[2023-05-10 20:47] LABS: Anti DNA DS Antibody <1 IU/mL; Antibody to SS-A Antigen <1.0 NEG AI (<1.0 NEG); Antibody to SS-B Antigen <1.0 NEG AI (<1.0 NEG); Myeloperoxidase Antibody <1.0 AI; Proteinase 3 PR3 Antibodies <1.0 AI; SM/Ribonucleoprotein Ab <1.0 NEG AI (<1.0 NEG); Smith Protein <1.0 NEG AI (<1.0 NEG)
[2023-05-11 13:59] LABS: Complement C3 142 mg/dL (83-193)
[2023-05-11 15:13] LABS: Cyclic Citrullinated Peptide <16 UNITS
[2023-05-11 22:08] LABS: Prot Elec - Albumin 3.6 g/dL (3.8-4.8); Prot Elec - Alpha1 0.3 g/dL (0.2-0.3); Prot Elec - Alpha2 0.8 g/dL (0.5-0.9); Prot Elec - Beta 1 0.5 g/dL (0.4-0.6); Prot Elec - Beta 2 0.5 g/dL (0.2-0.5); Prot Elec - Gamma 0.9 g/dL (0.8-1.7); Prot Elec - Total Protein 6.5 g/dL (6.1-8.1)
[2023-05-12 10:08] LABS: IgA 461 mg/dL (47-310); IgG 984 mg/dL (600-1640); IgM 50 mg/dL (50-300)
[2023-05-12 15:38] LABS: DNAds, Crithidia Antibody Negative (Negative)
[2023-05-12 18:04] LABS: HLA B27 Negative (Negative)
[2023-05-13 16:28] LABS: HLA B51 Comments See Comments; HLA B51 Method PCR SSOP
[2023-05-13 19:28] LABS: C1Q Complement Component 6.3 mg/dL (5.0-8.6)
[2023-05-18 16:28] LABS: C1q Antibody IgG <1 RU/mL (<26)
[2023-05-24 20:13] LABS: Centromere Protein A Ab <11 SI (<11); Centromere Protein B Ab <11 SI (<11); Fibrillarin Ab <11 SI (<11); PM SCL 100 Ab <11 SI (<11); PM SCL 75 Ab <11 SI (<11); RNA Polymerase III RP11 Ab <11 SI (<11); RNA Polymerase III RP155 Ab <11 SI (<11); SCL-70 Extractable Nuclear Ab <11 SI (<11); Th-To Ab <11 SI (<11); U1 SNRNP RNP 70KD <11 SI (<11); U1 SNRNP RNP A <11 SI (<11); U1 SNRNP RNP C <11 SI (<11)
== END 2023-05-09 14:48 | disposition home or self-care (01) ==
LOC: HO.LAB 14:47
PROVIDERS: PCP Nurse Practitioner Family; Visit Provider Student in an Organized Health Care Education/Training Program
DX: Z11.59 Encounter for screening for other viral diseases (principal); M32.9 Systemic lupus erythematosus, unspecified; M05.20 Rheumatoid vasculitis with rheumatoid arthritis of unspecified site; M34.9 Systemic sclerosis, unspecified; Z72.89 Other problems related to lifestyle
CPT/HCPCS: 36415; 80053; 81001; 81374; 82570; 82784; 83516; 84156; 84165; 84182; 85025; 85652; 86021; 86140; 86160; 86200; 86225; 86235; 86255; 86334; 86704; 86706; 86709; 86803; 86812; 87340

== ENCOUNTER 2023-05-21 17:50 | Emergency (ER) | payer BC, SELFPAY ==
--- NOTE | ~2023-05-21 | XR_ITS ---
EXAMINATION: XR ANKLE, RIGHT CLINICAL INFORMATION: Fall. Pain. COMPARISON: None available. TECHNIQUE: AP, lateral, and mortise views of the right ankle. FINDINGS: There is moderate lateral malleolar soft tissue swelling. No visible acute fracture or dislocation seen. The ankle mortise and subtalar joints are normal. There is a small calcaneal heel enthesophyte. XR/XR ankle RT min 3V IMPRESSION: 1. Moderate lateral malleolar soft tissue swelling likely ligamentous injury. No visible acute fracture or dislocation seen. 2. Small calcaneal heel enthesophyte.
[2023-05-21 18:22] VITALS: BP 144/72; PULSE 76; RESP 18; TEMP 36.7; O2SAT 98; BMI 33.2
--- NOTE | 2023-05-21 19:24 | ED_ITS ---
HPI - Extremity Injury (Lower) General Chief Complaint: Extremity Injury, Lower Stated Complaint: fell down stairs, ankle inj Time Seen by Provider: 05/21/23 19:04 History of Present Illness HPI Narrative: patient complains of right ankle pain after rolling it after she missed a step this morning, she did not fall there is no other injury no other complaint no numbness weakness or tingling no laceration Related Data Home Medications Medication Instructions Recorded Confirmed calcium citrate 250 mg PO DAILY 11/29/19 12/10/21 cholecalciferol (vitamin D3) 25 25 mcg PO DAILY 11/29/19 12/10/21 mcg (1,000 unit) capsule (Vitamin D3) fluticasone propionate 50 1 spray intranasal DAILY 02/04/22 mcg/actuation nasal spray,suspension colchicine 0.6 mg capsule mg PO 05/09/23 Previous Rx's Medication Instructions Recorded prednisone 10 mg tablet See Rx Instructions PO .COMPLEX 05/10/23 #168 tabs Allergies Allergy/AdvReac Type Severity Reaction Status Date / Time No Known Allergies Allergy Verified 05/09/23 15:06 [facility] Past Medical History Source: nursing notes reviewed Medical History History of superficial phlebitis Breast cancer, right Surgical History History of lumpectomy of right breast H/O left knee surgery Family History Family History Mother Breast cancer Paternal Grandfather Heart problem Sister Cirrhosis of liver not due to alcohol Sister No problems noted. Sister No problems noted. Sister No problems noted. Daughter Cirrhosis of liver not due to alcohol Daughter No problems noted. Brother HTN (hypertension) Post traumatic stress disorder (PTSD) Cardiomyopathy Social History Social History Household Members: Spouse Housing: House Are you a primary medicare nurse to a significant other at home: No Do you presently have visiting nurse or other home services: No Alcohol intake: current Alcohol intake frequency: holidays/special occasions only Patient Tobacco Use Status: Never used Tobacco Smoked in Last 30 Days: No e-Cigarette/Vaping Use: Never Used Second Hand Smoke Exposure: No Use of substances other than those prescribed or required for medical reasons: No Advance Directives: No Advance Directives Information Provided: No Patient : No service: No Current occupational status: employed 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 Sexual orientation: Straight/Heterosexual Gender identity: Female Cognitive needs: No Hearing needs: No Vision needs: Yes (wears glasses) Physical Exam Vital Signs: Vital Signs: Last Vital Signs Temp 98.0 F 05/21/23 18:22 Pulse 76 05/21/23 18:22 Resp 18 05/21/23 18:22 BP 144/72 H 05/21/23 18:22 Pulse Ox 98 05/21/23 18:22 O2 Del Method Room Air 05/21/23 18:22 BMI result Body Mass Index 33.2 general appearance no acute distress, comfortable cooperative Head normocephalic atraumatic Neck is supple Respiratory no distress The back has full range of motion Extremities the right ankle is tender and swollen around lateral malleolus with some ecchymosis Right knee and foot are nontender knee has low normal range of motion Other extremities are normal with full range of motion in left lower extremity and both upper extremities Course Course Course Narrative: right ankle x-ray is negative except for soft tissue swelling Patient is given Aircast and crutches and discharged Discharge Plan Discharge Clinical Impression: Right ankle sprain Patient Disposition: Home, Self-Care Additional Instructions: x-ray did not show any broken bones so you have a sprained ankle Follow as needed with orthopedist or primary doctor if not improving in 1-2 weeks Return any time any worse condition or any concerns You can use Tylenol or Motrin available [id number] as needed, apply ice Prescriptions: No Action prednisone 10 mg tablet See Rx Instructions PO .COMPLEX Qty: 168 0RF Rx Instructions: Take 6 tabs daily for 1 week, 5 tabs daily for 1 week, 4 tabs daily for 1 week, 3 tabs daily for 1 week, 2 tabs daily for 2 weeks and 1 tab daily for 2 weeks then stop cholecalciferol (vitamin D3) [Vitamin D3] 25 mcg (1,000 unit) Capsule 25 mcg PO DAILY calcium citrate 250 mg calcium Tablet 250 mg PO DAILY fluticasone propionate 50 mcg/actuation spray,suspension 1 spray intranasal DAILY colchicine 0.6 mg capsule PO Referrals: Meliton Agustin MD [Physician] - ( right ankle injury) Stand Alone Forms: Work/School Release
[2023-05-21 19:31] VITALS: BP 127/73; PULSE 72; RESP 18; TEMP 36.8
== END 2023-05-21 19:37 | disposition home or self-care (01) ==
PROVIDERS: Emergency Provider Emergency Medicine Emergency Medical Services
DX: S93.401A Sprain of unspecified ligament of right ankle, initial encounter (principal); X50.1XXA Overexertion from prolonged static or awkward postures, initial encounter; Y93.9 Activity, unspecified; Y92.9 Unspecified place or not applicable; Y99.9 Unspecified external cause status
CPT/HCPCS: 73610; 99283

== ENCOUNTER 2023-05-26 14:40 | Outpatient (AMB) | payer BC, SELFPAY ==
--- NOTE | 2023-05-26 14:41 | A.OFFPC_ITS ---
Vital Signs 05/26/23 14:42 Height 5 ft 7 in Weight 213 lb 6 oz BMI 33.4 BP 133/65 Blood Pressure Location Lt brachial Position Sitting Respiration 12 Pulse 70 Pulse Source Pulse Oximeter Pulse Oximetry (%) 96 Oxygen Delivery Method Room Air Intake Visit Reasons: CARLOS Spanish Instructor Required: No Accompanied by: Self / Same As Patient Allergies No Known Allergies Allergy (Verified 05/26/23 15:07) Medication List - Last Reconciled 05/26/23 by LYNN Parmar- calcium citrate 250 mg PO DAILY cholecalciferol (vitamin D3) (Vitamin D3) 25 mcg PO DAILY colchicine twice per day, taper to 1 time per day and then stop (RXd by Derm) fluticasone propionate 50 mcg/actuation 1 spray intranasal DAILY Tobacco use date assessed: 05/26/23 Dental Screening Dental Screen Date: 04/15/23 HPI HPI Comments History of Present Illness Details 58-year-old female breast 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 diagnosed January 2017 status post lumpectomy, completed radiation therapy 04/11/2017, completed tamoxifen therapy January 2022, Negative BRCA gene mutation 02/01/2017, GERD, MDD , seasonal allergies, vitamin-D deficiency, vasculitis Status post left knee surgery 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 Biopsy was done which confirmed vasculitis. She was treated with prednisone taper for 9 days. Unfortunately during the taper she broke out with worsening petechiae. I was able to see these pictures that she sent them to me via the portal. She then was evaluated by [facility]. Multiple labs were done. A recommendation for 8 weeks of prednisone was made however ultimate treatment was deferred to Dermatology. Dermatology opted to treat her with colchicine 0.6 mg b.i.d. this resolved her petechiae. At the current date she remains on colchicine 0.6 mg b.i.d. and has no petechial hemorrhages. She will be tapering this. Next follow up with Rheumatology is 06/07/2023. Does not have a follow up with Dermatology for vasculitis scheduled. She is tolerating the colchicine although was having some diarrhea. Reports this is manageable. Unfortunately on Tuesday she missed a step while carrying boxes on her stairs she fell and sprained her right ankle. She did go to [facility]'s Emergency room for evaluation and treatment. This workup was reviewed. The right ankle continues to be quite swollen, painful when bearing weight. She is wearing the ankle brace and walking with a cane. Has an appointment with [facility] on 06/07/2023. Lots of anxiety during the time of the petechial outbreak however reports that this is well controlled now that she knows what has caused the petechiae and there is a treatment plan. Does not feel that she needs any counseling at this time. [facility] Medical History History of superficial phlebitis Breast cancer, right Surgical History History of lumpectomy of right breast H/O left knee surgery Family History (Updated 05/26/23 @ 14:53 by Juany Che [facility]) Mother Breast cancer Paternal Grandfather Heart problem Sister Cirrhosis of liver not due to alcohol Sister No problems noted. Sister No problems noted. Sister No problems noted. Sister Cirrhosis of liver not due to alcohol Daughter No problems noted. 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 Depression Screening Interpretation: Negative Depression Screening Done: Yes Source: Developed by Drs. Addi Albright, Yaritza Johnson, Joseph Dey and colleagues, with an educational chris from [employer]. Thrive Questionnaire Date Thrive assessed: 04/15/23 GRAYSON-7 AMB Questionnaire GRAYSON-7 Date GRAYSON - 7 assessed: 04/15/23 Source: Developed by Drs. Addi Albright, Yaritza Johnson, Joseph Dey and colleagues, with an educational chris from [employer]. Review of Systems Const All systems reviewed & are unremarkable except as noted in HPI and below Physical exam (Primary Care) Vital Signs: Last Vital Signs Pulse 70 05/26/23 14:42 Resp 12 05/26/23 14:42 BP 133/65 05/26/23 14:42 Pulse Ox 96 05/26/23 14:42 Oxygen Delivery Method Room Air 05/26/23 14:42 BMI result Body Mass Index 33.4 Tobacco/Smoking Status: Tobacco use Status Tobacco use date assessed 05/26/23 05/26/23 14:53 Patient Tobacco Use Status Never used Tobacco 05/26/23 14:53 e-Cigarette/Vaping Use Never Used 05/26/23 14:53 Depression Screening Interpretation: Negative Thrive Assessment: Date of Thrive Assessment Date Thrive assessed 04/15/23 05/26/23 14:53 Const Other: awake alert RRR LS CTAB Right foot/ankle edematous, ecchymotic, toes mildly cool to touch, cap refill WNL. Antalgic gait. Right ankle wrapped w/ SANDEEP wrap and air cast reapplied. Skin w/o petechiae Assessment and Plan Assessment & Plan (1) Right ankle sprain: Comment: initial appt with [facility] 06/07/2023. Encouraged to apply the Sandeep wrap in the morning, followed by her Aircast. Use cane to offload pressure. Elevate as much as possible. Apply warm moist compresses in the evening. Remove Sandeep wrap after work and before going to bed. Monitor skin integrity. Code(s): S93.401A - Sprain of unspecified ligament of right ankle, initial encounter Qualifiers: Encounter type: subsequent encounter Involved ligament of ankle: other ligament Qualified Code(s): S93.491D - Sprain of other ligament of right ankle, subsequent encounter (2) Breast cancer: Comment: right ductal carcinoma in situ lower outer quad/ER/IA +, BRCA negative dx 01/2017, status post lumpectomy, completed radiation therapy 04/11/2017, completed tamoxifen therapy January 2022. Managed by [facility] Code(s): C50.919 - Malignant neoplasm of unspecified site of unspecified female breast Qualifiers: Breast location: lower outer quadrant of breast Estrogen receptor status: positive Laterality: right Patient sex: female Qualified Code(s): C50.511 - Malignant neoplasm of lower-outer quadrant of right female breast; Z17.0 - Estrogen receptor positive status [ER+] (3) Vitamin D deficiency: Comment: DEXA ordered. To be done in follow up 2023 at [facility]. 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 Currently being followed by [facility]. Appointment to review results 06/07/2023. Petechiae is currently resolved with colchicine. Code(s): L95.9 - Vasculitis limited to the skin, unspecified Plan This note is constructed using voice recognition software. While every effort has been made to ensure accuracy in human capital analyst, still errors may have been included Sometimes, these errors may affect the content or meaning of the given sentence . Total time spent caring for the patient today was 60 minutes. This includes time spent before the visit reviewing the chart, time spent during the visit, and time spent after the visit on documentation Orders: Orders XR DEXA axial skeleton 12/23/23 C50.511 - Malignant neoplasm of lower-outer quadrant of right female breast, E55.9 - Vitamin D deficiency, unspecified, Z17.0 - Estrogen receptor positive status [ER+] Patient Instructions: Return to office in July for routine follow-up sooner if needed Coding Level of Care Code Est Pt Level 5 (08715) Diagnoses Sprain of other ligament of right ankle, subsequent encounter S93.491D Encounter type: subsequent encounter Involved ligament of ankle: other ligament Malignant neoplasm of lower-outer quadrant of right breast of female, estrogen receptor positive C50.511; Z17.0 Breast location: lower outer quadrant of breast Estrogen receptor status: positive Laterality: right Patient sex: female Vitamin D deficiency E55.9 JARAD positive R76.8 Vasculitis determined by biopsy of skin L95.9
[2023-05-26 14:42] VITALS: BP 133/65; PULSE 70; RESP 12; O2SAT 96; BMI 33.4
== END 2023-05-26 15:50 | disposition home or self-care (01) ==
PROVIDERS: PCP Family Medicine; Visit Provider Nurse Practitioner Family
DX: S93.491A Sprain of other ligament of right ankle, initial encounter (principal); C50.511 Malignant neoplasm of lower-outer quadrant of right female breast; Z17.0 Estrogen receptor positive status [ER+]; E55.9 Vitamin D deficiency, unspecified; R76.8 Other specified abnormal immunological findings in serum; L95.9 Vasculitis limited to the skin, unspecified
CPT/HCPCS: 99215

== ENCOUNTER 2023-06-07 08:00 | Outpatient (AMB) | payer BC, SELFPAY ==
--- NOTE | 2023-06-07 08:04 | MHC.OFFVIS ---
Intake Vital Signs 06/07/23 08:05 Height 5 ft 7 in Weight 212 lb 1.355 oz BMI 33.2 BP 118/64 Blood Pressure Location Rt brachial Position Sitting Pulse 69 Pulse Source Pulse Oximeter Pulse Oximetry (%) 96 Oxygen Delivery Method Room Air Intake Visit Reasons: Vasculitis Intake Note: Patient last seen 05/09/23 presents today for follow up and test results. Custom Decorating Consultant Required: No Accompanied by: Self / Same As Patient Allergies No Known Allergies Allergy (Verified 06/07/23 08:06) Medication List - Last Reconciled 06/07/23 by Ignacio Chaudhry MD calcium citrate 250 mg PO DAILY cholecalciferol (vitamin D3) (Vitamin D3) 25 mcg PO DAILY colchicine twice per day, taper to 1 time per day and then stop (RXd by Derm) fluticasone propionate 50 mcg/actuation 1 spray intranasal DAILY HPI HPI Comments History of Present Illness Details Patient returns for follow-up after completion of her diagnostic workup. She states that she did not take the prednisone as prescribed by me. She was advised by her senior oracle developer to not take the prednisone and remain on colchicine. She had been taking colchicine twice a day for some time until last week when she reduced it to once daily. It has been causing some diarrhea. The vasculitic rashes seem to have almost completely resolved. She has been having some itchy skin rashes on the inner aspect of her left sole. But she states that those rashes are different. Initial history: This is a 58-year-old female who presents for evaluation of skin lesions. Patient states that on 03/30 she came back home from work and noticed that both her legs and feet were covered in small reddish dots associated with burning and mild swelling of her ankles. Bilateral lower extremity ultrasound was negative for DVT. 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 labs showed negative MPO /PR3, positive JARAD 1-80 nucleolar chest x-ray was negative.She was started on a tapering course of prednisone starting at 60 mg daily tapered of in about 9 days with resolution of the rashes on her feet but shortly after she started having rashes on her arms abdomen and breasts. those are also improving. Three days ago She was started on colchicine by her senior oracle developer. She cannot tell whether she is improving with that. She denies any side effects related to prednisone or colchicine. Patient denies any cough, shortness of breath, blood or froth in urine. Denies fevers or Unintentional weight loss. she denies taking any new medications prior to development of her rashes. She stated that in January she had a cough that lasted about a month then self-resolved. She denies any abdominal pain. She is unaware of any family history of an autoimmune rheumatic disease. Patient had 2 pregnancies with no abortions or miscarriages. [facility] Medical History History of superficial phlebitis Breast cancer, right Surgical History History of lumpectomy of right breast H/O left knee surgery Family History Mother Breast cancer Paternal Grandfather Heart problem Sister Cirrhosis of liver not due to alcohol Sister No problems noted. Sister No problems noted. Sister No problems noted. Sister Cirrhosis of liver not due to alcohol Daughter No problems noted. 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 Sexual orientation: Straight/Heterosexual Gender identity: Female Cognitive needs: No Hearing needs: No Vision needs: Yes (wears glasses) Female Reproductive History Menstrual Age of Menarche: 12 Review of Systems Skin/Breast Reports pruritus, Denies lesions and Reports rash Physical Exam Vital Signs: Last Vital Signs Pulse 69 06/07/23 08:05 BP 118/64 06/07/23 08:05 Pulse Ox 96 06/07/23 08:05 Oxygen Delivery Method Room Air 06/07/23 08:05 BMI result Body Mass Index 33.2 Const General: cooperative, healthy appearing and comfortable HEENT Head: Yes normocephalic and Yes atraumatic Mouth: moist mucous membranes Resp Effort & Inspection: normal respiratory effort and able to speak in complete sentences Auscultation: clear to auscultation bilaterally Skin Other: Vasculitic rashes seen last visit have resolved. Minimal scabbed lesions on inner aspect of left sole. Extrem Other: No active synovitis Normal nail fold capillaroscopy Results Reviewed Results Reviewed: Skin biopsy 04/2023? Left lateral proximal pretibial region? Changes consistent with early/evolving leukocytoclastic vasculitis Comment:? Direct immunofluorescence may be helpful in further evaluation of this process.? No fungi are detected with PAS stain JARAD nucleolar HIV 1/2 negative? 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 Skin biopsy confirming leukocytoclastic vasculitis. There are no signs suggestive of systemic vasculitis. Comprehensive serology is unremarkable. Rashes resolved with colchicine prescribed by Dermatology. Continue to follow-up with Dermatology. Discussed symptoms and signs suggestive of systemic vasculitis. Patient can follow-up with me as needed (2) JARAD positive: Comment: 1:80 nucleolar 03/2023 Code(s): R76.8 - Other specified abnormal immunological findings in serum Plan: With no signs suggestive of systemic autoimmune rheumatic disease. Comprehensive sub serologies are unremarkable. 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
[2023-06-07 08:05] VITALS: BP 118/64; PULSE 69; O2SAT 96; BMI 33.2
== END 2023-06-07 08:19 | disposition home or self-care (01) ==
PROVIDERS: PCP Nurse Practitioner Family; Visit Provider Student in an Organized Health Care Education/Training Program
DX: L95.9 Vasculitis limited to the skin, unspecified (principal); R76.8 Other specified abnormal immunological findings in serum
CPT/HCPCS: 99214

== ENCOUNTER → 2023-06-07 08:00 | Outpatient (BNVA) | payer BC, SELFPAY | PROVIDERS: PCP Nurse Practitioner Family; Visit Provider Student in an Organized Health Care Education/Training Program ==

== ENCOUNTER 2023-06-07 14:45 | Outpatient (AMB) | payer BC, SELFPAY ==
--- NOTE | 2023-06-07 14:58 | A.OFFVIS_ITS ---
Intake Intake Visit Reasons: N/P Right ankle sprain 05/21/23 Intake Note: Patty is a 58 year old female who presents today as a new patient for a evaluation for her right ankle sprain, DOI 05/21/23. Patient reports carrying 2 [employer] packages and she missed a step where she heard a crunch. She express that it looks better when it first happened. She does have some swelling and bruises on the lateral aspect of the foot. Allergies No Known Allergies Allergy (Verified 06/07/23 15:01) HPI N/P Right ankle sprain 05/21/23 HPI Details 58-year-old female who presents in the o ffice today, as a new patient, for an evaluation of right ankle pain. Patient presented to the ED on 05/21/2023 status post missing a step causing her to twist the ankle. X-rays of the right ankle were obtained. She was placed in an air cast and given crutches. While in the office today the patient reported carrying 2 [employer] packages when she missed a step and heard a crack. She feels the ankle looks better now than when the injury occurred. She confirms some edema and ecchymosis on the lateral aspect of the right foot. Patient presents in the office wear sneakers. She states her PCP transitioned her to an KHOA wrap. She reports burning that runs up the right lower extremity. She states she was instructed to use heat by her PCP, but she felt better using the ice and went back to using that. 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 Patient has a history of multiple left knee surgeries. [facility] Medical History History of superficial phlebitis Breast cancer, right Surgical History History of lumpectomy of right breast H/O left knee surgery Family History Mother Breast cancer Paternal Grandfather Heart problem Sister Cirrhosis of liver not due to alcohol Sister No problems noted. Sister No problems noted. Sister No problems noted. Sister Cirrhosis of liver not due to alcohol Daughter No problems noted. 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 Sexual orientation: Straight/Heterosexual Gender identity: Female Cognitive needs: No Hearing needs: No Vision needs: Yes (wears glasses) Female Reproductive History Menstrual Age of Menarche: 12 Review of Systems Const All systems reviewed & are unremarkable except as noted in HPI and below Physical Exam Const General: cooperative and no acute distress Orientation/consciousness: patient oriented x3 Resp Effort & Inspection: normal respiratory effort and able to speak in complete sentences Cardio Peripheral pulses: Peripheral pulses 2+ throughout Skin General skin exam: no rashes or lesions noted Neuro General: patient oriented x3 Extrem Other: Right ankle: Moderate edema over the lateral malleolus extending to the plantar aspect of the right foot. Slight tenderness to palpation over the peroneal tendons. Able to dorsiflex and plantarflex, inversion and eversion with mild limitations. Sensation intact. Pedal pulse intact. Assessment & Plan Assessment & Plan (1) Moderate right ankle sprain: Code(s): S93.401A - Sprain of unspecified ligament of right ankle, initial encounter Qualifiers: Encounter type: initial encounter Qualified Code(s): S93.401A - Sprain of unspecified ligament of right ankle, initial encounter Plan Ms. Adamson is a 58-year-old female who presents in the office today, as a new patient, for an evaluation of right ankle pain. Patient presented to the ED on 05/21/2023 status post missing a step causing her to twist the ankle. X-rays of the right ankle were obtained. She was placed in an air cast and given crutches. While in the office today the patient reported carrying 2 [employer] packages when she missed a step and heard a crack. She feels the ankle looks better now than when the injury occurred. She confirms some edema and ecchymosis on the lateral aspect of the right foot. Patient presents in the office wear sneakers. She states her PCP transitioned her to an KHOA wrap. She reports burning that runs up the right lower extremity. She states she was instructed to use heat by her PCP, but she felt better using the ice and went back to using that. 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 Patient has a history of multiple left knee surgeries. Discussed treatment options of wearing an KHOA wrap or a boot to help with healing. I strongly recommend laying down to elevate the ankle above the level of the heart and icing the ankle as much as possible. She was given a tall walking boot, off the shelf, to wear when she is to be up for longer periods of time like at work. She was given an KHOA wrap off the shelf to wear under the boot. She can use Tylenol or Ibuprofen for pain and edema. We discussed the role of PT. However, she has very good ROM in the office today. I anticipate discontinuing the use of the boot in 2 weeks. Follow up will be in 2 weeks via telephone for a check in on the edema and ROM, or sooner if needed. X-rays of the right ankle, obtained on 05/21/2023, revealed: 1. Moderate lateral malleolar soft tissue swelling likely ligamentous injury. No visible acute fracture or dislocation seen. 2. Small calcaneal heel enthesophyte. Patient Instructions: Scribed by Ivania Weathers medical coding manager, for Alesha Avendano PA-C on 06/07/2023 at 2:51 pm, EST. Coding Level of Care Code New Pt Level 4 (13565) Diagnoses Moderate right ankle sprain, initial encounter S93.401A Encounter type: initial encounter
== END 2023-06-07 15:36 | disposition home or self-care (01) ==
PROVIDERS: Visit Provider Physician Assistant
DX: S93.401A Sprain of unspecified ligament of right ankle, initial encounter (principal)
CPT/HCPCS: 99203

== ENCOUNTER 2023-06-24 12:45 | Outpatient (AMB) | payer BC, SELFPAY ==
--- NOTE | 2023-06-24 12:46 | MHC.OFFVIS ---
Intake Visit Reasons: Tel-Right ankle sprain 05/21/23-follow up Allergies No Known Allergies Allergy (Verified 06/07/23 15:01) HPI HPI Tel-Right ankle sprain 05/21/23-follow up: Details: 58-year-old female who presents via telehealth for a follow up of a right ankle sprain that occurred on 05/21/2023 status post missing a step causing her to twist her ankle. I last saw the patient in the office on 06/07/2023 when she was placed in a tall walking boot and strongly encouraged to elevate the ankle above the heart. She was given an KHOA wrap to wear under the boot. Overall, the patient is doing well. She reports she has minimal discomfort, that occurs mostly when going downstairs. She reports this discomfort along the medial aspect of the right ankle. Overwise, she has no pain. [facility], [facility] Medical History History of superficial phlebitis Breast cancer, right Surgical History History of lumpectomy of right breast H/O left knee surgery Family History Mother Breast cancer Paternal Grandfather Heart problem Sister Cirrhosis of liver not due to alcohol Sister No problems noted. Sister No problems noted. Sister No problems noted. Sister Cirrhosis of liver not due to alcohol Daughter No problems noted. 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 Telehealth Telehealth Telehealth Platform: Telephone Location of provider rendering services: practice address Location of patient: address on file Patient Identification confirmed using: Name, : Yes Telehealth method: voice only Patient verbally consented to treatment: Yes Patient verbally consented to billing insurance company: Yes Patient informed of any privacy concerns related to visit: Yes Minutes spent on Phone/Video with Pt.: 10 Assessment & Plan Assessment & Plan (1) Moderate right ankle sprain: Code(s): S93.401A - Sprain of unspecified ligament of right ankle, initial encounter Category: Medical Qualifiers: Encounter type: initial encounter Qualified Code(s): S93.401A - Sprain of unspecified ligament of right ankle, initial encounter Plan Ms. Adamson is a 58-year-old female who presents via telehealth for a follow up of a right ankle sprain that occurred on 05/21/2023 status post missing a step causing her to twist her ankle. I last saw the patient in the office on 06/07/2023 when she was placed in a tall walking boot and strongly encouraged to elevate the ankle above the heart. She was given an KHOA wrap to wear under the boot. Overall, the patient is doing well. She reports she has minimal discomfort, that occurs mostly when going downstairs. She reports this discomfort along the medial aspect of the right ankle. Overwise, she has no pain. Patient will discontinue the use of the boot at this time. We discussed the role of formal physical therapy, but she continues to have great ROM and has gradual resolving symptoms. We would both like to see how she progresses over the next several weeks. If she is not happy with her progression or is concerned about anything she can reach out to the office and I will be happy to see her. Otherwise, follow up will be PRN, or sooner if needed. Patient Instructions: Scribed by Ivania Weathers medical staff manager, for Alesha Avendano PA-C on 06/24/2023 at 12:56 pm, EST. Coding Level of Care Code Tele Est Pt Level 3 (41281) Diagnoses Moderate right ankle sprain, initial encounter S93.401A Encounter type: initial encounter
== END 2023-06-24 12:46 | disposition home or self-care (01) ==
PROVIDERS: PCP Nurse Practitioner Family; Visit Provider Physician Assistant
DX: S93.401A Sprain of unspecified ligament of right ankle, initial encounter (principal)
CPT/HCPCS: 99441

== ENCOUNTER → 2023-06-24 12:45 | Outpatient (BNVA) | payer BC, SELFPAY | PROVIDERS: PCP Nurse Practitioner Family; Visit Provider Physician Assistant ==

== ENCOUNTER 2023-08-17 08:29 | Outpatient (AMB) | payer BC, SELFPAY ==
[2023-08-17 08:37] VITALS: BP 118/60; PULSE 68; O2SAT 96; BMI 32.9
--- NOTE | 2023-08-17 08:37 | A.OFFPC_ITS ---
Vital Signs 08/17/23 08:37 Height 5 ft 7 in Weight 210 lb BMI 32.9 BP 118/60 Blood Pressure Location Lt brachial Position Sitting Pulse 68 Pulse Source Pulse Oximeter Pulse Oximetry (%) 96 Oxygen Delivery Method Room Air Intake Visit Reasons: CPE Intake Note: Patient is here for her physical today. Allergies No Known Allergies Allergy (Verified 08/17/23 08:58) Medication List - Last Reconciled 08/17/23 by Reyna Scott [employer]SEMBLER- calcium citrate 250 mg PO DAILY cholecalciferol (vitamin D3) (Vitamin D3) 25 mcg PO DAILY colchicine mg PO fluticasone propionate 50 mcg/actuation 1 spray intranasal DAILY Tobacco use date assessed: 08/17/23 Dental Screening Dental Screen Date: 04/15/23 HPI HPI Comments History of Present Illness Details Gracie 58-year-old female breast cancer 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 in lower outer quadrant/ER/PA positive diagnosed January 2017 status post lumpectomy, completed radiation therapy 04/11/2017, completed tamoxifen therapy January 2022, Negative BRCA gene mutation 02/01/2017, GERD, MDD , seasonal allergies, vitamin-D deficiency, nonsystemic vasculitis, pilar cyst scalp, obesity Status post left knee surgery [facility] 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 Health Maintenance reviewed. In regards to her vasculitis, the last rheumatology note from May was reviewed. She reports today that after she completed cold Bonding Agent 0.6 mg p.o. b.i.d. in May her petechia completely resolved. She was given an 8 week course of prednisone by Rheumatology however she never needed this. She has no further follow up scheduled with Rheumatology at this time. She does have a follow up with Dermatology for a skin surveillance. Over the past few weeks she noticed recurrence of petechiae on bilateral anterior lower extremities. She is under a lot of stress as the current time. And she wonders if stresses the outbreaks other than that she can not find any correlating triggers. She admits confusion about what to do when she has the petechiae and is looking for some advisement. Also reports a patch of eczema on her right shoulder. Reports that as a child she had eczema outbreaks during periods of stress. This area has also returned in the setting of stress. She has a bump on the top of her head. It is painless. It has been present for several years. Has not changed since onset. She just wonders what this. She had a right ankle sprain at the time of the last visit, she has had a consultation with Orthopedics since this time. Notes reviewed. Right ankle is improving, only pain when going downstairs. She is managing well without any additional intervention. Seasonal allergies well controlled with Flonase Taken daily and calcium and vitamin-D Plan: Continue Flonase Continue calcium and vitamin-D Get shingles vaccine, otherwise her up-to-date on her health maintenance items. Cont to use colchicine 0.6 mg p.o. b.i.d. at first onset of petechiae and use for 1 week past resolution, would like to keep of prednisone. If needing to use pulse therapy more often, could consider using daily suppressive therapy versus refer back to Rheumatology should she need chronic prednisone. There was also a mention of methotrexate. Again if she needs a sort of treatment mole refer to rheumatology. Hydrocortisone or OTC topical steroid to right shoulder eczema until resolved Pilaris cyst- Benign cyst on scalp no tx needed BMI 32.9 lifestyle modifications encouraged Return to office in 6 months to follow up on vasculitis, sooner as needed. COUNTS INCLUDE 234 BEDS AT THE [facility] Medical History History of superficial phlebitis Breast cancer, right Surgical History History of lumpectomy of right breast H/O left knee surgery Family History Mother Breast cancer Paternal Grandfather Heart problem Sister Cirrhosis of liver not due to alcohol Sister No problems noted. Sister No problems noted. Sister No problems noted. Sister Cirrhosis of liver not due to alcohol Daughter No problems noted. 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 Addi Albright, Yaritza Johnson, Joseph Dey and colleagues, with an educational chris from [employer]). Review of Systems Const Details: Constitutional: Denies fever. Eye: Denies eye pain. ENMT: Denies sore throat and nasal congestion. Respiratory: Denies shortness of breath and cough. Gastrointestinal: Denies nausea, vomiting or abdominal pain. Cardiovascular: Denies chest pain and syncope. Genitourinary: Denies dysuria. Musculoskeletal: Denies back pain Neurologic: Denies headaches, confusion, and weakness. Psychiatric: Denies suicidal thoughts and substance abuse. Allergy/ Immunologic: Denies impaired immunity. Physical exam (Primary Care) Vital Signs: Last Vital Signs Pulse 68 08/17/23 08:37 BP 118/60 08/17/23 08:37 Pulse Ox 96 08/17/23 08:37 Oxygen Delivery Method Room Air 08/17/23 08:37 BMI result Body Mass Index 32.9 BMI Assessment/Plan discussion: High BMI High, discussed plan: lifestyle Tobacco/Smoking Status: Tobacco use Status Tobacco use date assessed 08/17/23 08/17/23 08:44 Patient Tobacco Use Status Never used Tobacco 08/17/23 08:37 e-Cigarette/Vaping Use Never Used 08/17/23 08:37 Thrive Assessment: Date of Thrive Assessment Date Thrive assessed 04/15/23 08/17/23 08:37 Const Other: General: Well developed, well nourished, in no acute distress. Appears stated age. Head: Normocephalic, atraumatic, pilaris cyst noted frontal scalp Eyes: Pupils are equal, round and reactive to light and accommodation. Conjunctivae are clear. Vision grossly normal. Ears: TMs intact bilat with mild congestion, EACS WNL Nose: Patent, without discharge. Mouth: There are no ulcers or lesions noted. No inflammation, no post nasal drip, no plaques nor exudates. Neck: Supple, no adenopathy or thyromegaly, no carotid bruit. Lungs: Clear to auscultation bilaterally. No rales, rhonchi or wheeze noted. Good air flow in all dave. Heart: Regular rate and rhythm. No murmurs, click, rubs or gallops are noted. Abdomen: Bowel sounds present in all quadrants. The abdomen is soft, nontender, with no masses or organomegaly noted. No hernias are noted. Musculoskeletal: Joints are nontender, without swelling, redness, or effusions. Range of motion is observed to be normal. Pulses: Peripheral pulses are equal and palpable bilaterally. Extremities: No clubbing, cyanosis nor edema is noted. Neurologic: Gait and station normal. Cranial Nerves 2-12 intact. Motor strength grossly symmetrical and intact. No sensory loss. Balance normal. Skin: No ulcers, or lesions noted. Turgor is good. Skin color is good. Hair and nails are without abnormalities. Petechial rash bilateral anterior lower extremities and abdomen Psych: Normal eye contact, affect and mood appropriate, and normal interactions. Patient is alert and appropriate to context. 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 Code(s): L95.9 - Vasculitis limited to the skin, unspecified (3) Class 1 obesity with body mass index (BMI) of 32.0 to 32.9 in adult: Code(s): E66.9 - Obesity, unspecified; Z68.32 - Body mass index [BMI] 32.0-32.9, adult Qualifiers: Obesity type: due to excess calories Serious obesity comorbidity presence: without serious comorbidity Qualified Code(s): E66.09 - Other obesity due to excess calories; Z68.32 - Body mass index [BMI] 32.0-32.9, adult (4) Seasonal allergies: Code(s): J30.2 - Other seasonal allergic rhinitis (5) Pilar cyst of scalp: Code(s): L72.11 - Pilar cyst (6) Moderate right ankle sprain: Code(s): S93.401A - Sprain of unspecified ligament of right ankle, initial encounter Qualifiers: Encounter type: initial encounter Qualified Code(s): S93.401A - Sprain of unspecified ligament of right ankle, initial encounter Medications: New colchicine 0.6 mg PO BID 60 caps 3RF Patient Instructions: Plan: Continue Flonase Continue calcium and vitamin-D Get shingles vaccine, otherwise her up-to-date on her health maintenance items. Cont to use colchicine 0.6 mg p.o. b.i.d. at first onset of petechiae and use for 1 week past resolution, would like to keep of prednisone. If needing to use pulse therapy more often, could consider using daily suppressive therapy versus refer back to Rheumatology should she need chronic prednisone. There was also a mention of methotrexate. Again if she needs a sort of treatment mole refer to rheumatology. Hydrocortisone or OTC topical steroid to right shoulder eczema until resolved Pilaris cyst- Benign cyst on scalp no tx needed BMI 32.9 lifestyle modifications encouraged Return to office in 6 months to follow up on vasculitis, sooner as needed. Health screenings for women You should visit your health care provider from time to time, even if you are healthy. The purpose of these visits is to: Screen for medical issues Assess your risk for future medical problems Encourage a healthy lifestyle Update vaccinations and other preventive care services Help you get to know your provider in case of an illness Information Even if you feel fine, you should still see your provider for regular checkups. These visits can help you avoid problems in the future. For example, the only way to find out if you have high blood pressure is to have it checked regularly. High blood sugar and high cholesterol levels also may not have any symptoms in the early stages. A simple blood test can check for these conditions. There are specific times when you should see your provider or receive specific health screenings. The [place] Preventive Services Task Force publishes a list of recommended screenings. Below are screening guidelines for women ages 18 to 39. BLOOD PRESSURE SCREENING Your blood pressure should be checked at least once every 3 to 5 years if: Your blood pressure is in the normal range (top number less than 120 mm Hg and bottom number less than 80 mm Hg) You don't have risk factors for high blood pressure Ask your provider if you need your blood pressure checked more often if: The top number is 120 to 129 mm Hg or the bottom number is 70 to 79 mm Hg You have diabetes, heart disease, kidney problems, are overweight, or have certain other health conditions You have a first-degree relative with high blood pressure You are Black You had high blood pressure during a If the top number is 130 mm Hg or greater or the bottom number is 80 mm Hg or greater, this is considered stage 1 hypertension. Schedule an appointment with your provider to learn how you can reduce your blood pressure. Watch for blood pressure screenings in your area. Ask your provider if you can stop in to have your blood pressure checked. BREAST CANCER SCREENING Experts do not agree about the benefits of breast self-exams in finding breast cancer or saving lives. Talk to your provider about what is best for you. A screening mammogram is not recommended for most women under age 40. Your provider may discuss and recommend mammograms, MRI scans, or ultrasounds if you have an increased risk for breast cancer, such as: A mother or sister who had breast cancer at a young age (most often starting screening earlier than the age the close relative was diagnosed) You carry a high-risk genetic marker CERVICAL CANCER SCREENING Cervical cancer screening should start at age 21 years unless your provider advises otherwise. After the first test: Women ages 21 through 29 should have a Pap test every 3 years. Exoprts do not agree on whether HPV testing is recommended for this age group. Women ages 30 through 65 should be screened with either a Pap test every 3 years or the HPV test every 5 years or both tests every 5 years (called cotesting ). Women who have been treated for precancer (cervical dysplasia) should continue to have Pap tests for 20 years after treatment or until age 65, whichever is longer. If you have had your uterus and cervix removed (total hysterectomy), and you have not been diagnosed with cervical cancer or precancer (high grade cervical neoplasia), you do not need cervical cancer screening. CHOLESTEROL SCREENING Cholesterol screening should begin at: Age 45 for women with no known risk factors for coronary heart disease Age 20 for women with known risk factors for coronary heart disease Repeat cholesterol screening should take place: Every 5 years for women with normal cholesterol levels More often if changes occur in lifestyle (including weight gain and diet) More often if you have diabetes, heart disease, kidney problems, or certain other conditions DIABETES SCREENING You should be screened for diabetes starting at age 35 and then repeated every 3 years if you have no risk factors for diabetes. Screening may need to start earlier and be repeated more often if you have other risk factors for diabetes, such as: You have a first degree relative with diabetes. You are overweight or have obesity. You have high blood pressure, prediabetes, or a history of heart disease. Screening for diabetes should be done if you are planning to become and you are overweight and have other risk factors such as high blood pressure. DENTAL EXAM Go to the dentist once or twice every year for an exam and cleaning. Your dentist will evaluate if you need more frequent visits. EYE EXAM Have an eye exam every 5 to 10 years before age 40. If you have vision problems, have an eye exam every 2 years or more often if recommended by your provider. You should have an eye exam that includes an examination of your retina (back of your eye) at least every year if you have diabetes. IMMUNIZATIONS Commonly needed vaccines include: Flu shot: get one every year. COVID-19 vaccine: ask your provider what is best for you. Tetanus-diphtheria and acellular pertussis (Tdap) vaccine: have one at or after age 19 as one of your tetanus-diphtheria vaccines if you did not receive it as an adolescent. Tetanus-diphtheria: have a booster (or Tdap) every 10 years. Varicella vaccine: receive 2 doses if you never had chickenpox or the varicella vaccine. Hepatitis B vaccine: receive 2, 3, or 4 doses, depending on your exact circumstances. Measles, mumps, and rubella (MMR) vaccine: receive 1 to 2 doses if you are not already immune to MMR. Your provider can tell you if you are immune. Ask your provider about the human papillomavirus (HPV) vaccine if: You have not received the HPV vaccine in the past You have not completed the full vaccine series (you should catch up on this shot) Ask your provider if you should receive other immunizations if you have certain health problems that increase your risk for some diseases such as pneumonia. INFECTIOUS DISEASE SCREENING Women who are sexually active should be screened for chlamydia and gonorrhea up until age 25. Women 25 years and older should be screened for chlamydia and gonorrhea if at high risk. Screening for hepatitis C: All adults ages 18 to 79 should get a one-time test for hepatitis C. people should be screened at every . Screening for human immunodeficiency virus (HIV): All people ages 15 to 65 should get a one-time test for HIV. Depending on your lifestyle and medical history, you may also need to be screened for infections such as syphilis and HIV, as well as other infections. PHYSICAL EXAM All adults should visit their provider from time to time, even if they are healthy. The purpose of these visits is to: Screen for disease Assess your risk of future medical problems Encourage a healthy lifestyle Update your vaccinations and other preventive care services Maintain a relationship with a provider in case of an illness Your height, weight, and BMI should be checked at every exam. During your exam, your provider may ask you about: Depression and anxiety Diet and exercise Alcohol and tobacco use Safety issues, such as using seat belts, smoke detectors, and intimate partner violence Your medicines and risk for interactions SKIN SELF-EXAM Your provider may check your skin for signs of skin cancer, especially if you're at high risk, such as if you: Have had skin cancer before Have close relatives with skin cancer Have a weakened immune system OTHER SCREENING Talk with your provider about colon cancer screening if you have a strong family history of colon cancer or polyps, or if you have had inflammatory bowel disease or polyps yourself. Routine bone density screening of women under 40 is not recommended. Coding Level of Care Code Est Pt Prev Care 40-64y(13571) Diagnoses Encounter for general adult medical examination without abnormal findings Z00.00 Vasculitis determined by biopsy of skin L95.9 Class 1 obesity due to excess calories without serious comorbidity with body mass index (BMI) of 32.0 to 32.9 in adult E66.09; Z68.32 Obesity type: due to excess calories Serious obesity comorbidity presence: without serious comorbidity Seasonal allergies J30.2 Pilar cyst of scalp L72.11 Moderate right ankle sprain, initial encounter S93.401A Encounter type: initial encounter
== END 2023-08-17 09:30 | disposition home or self-care (01) ==
PROVIDERS: PCP Nurse Practitioner Family; Visit Provider Nurse Practitioner Family
DX: Z00.00 Encounter for general adult medical examination without abnormal findings (principal); L95.9 Vasculitis limited to the skin, unspecified; E66.09 Other obesity due to excess calories; Z68.32 Body mass index [BMI] 32.0-32.9, adult; J30.2 Other seasonal allergic rhinitis; L72.11 Pilar cyst; S93.401A Sprain of unspecified ligament of right ankle, initial encounter
CPT/HCPCS: 99396

== ENCOUNTER 2023-11-22 15:22 | Outpatient (AMB) | payer BC, SELFPAY ==
--- NOTE | 2023-11-22 15:26 | MHC.OFFVIS ---
Intake Visit Reasons: OV-Right ankle sprain/swelling Intake Note: Patty is a 58 year old female who presents today for a follow up for her right ankle sprain, DOI 05/21/23. Patient reports she is doing a bit better with her pain and mobility with the help of PT. She is still is having pain on both sides of the ankle and some swelling which PT advised her to get it looked at. Allergies No Known Allergies Allergy (Verified 11/22/23 15:28) HPI HPI OV-Right ankle sprain/swelling: Details: 58-year-old female who presents in the office today for a follow-up of a right ankle sprain status post missing a step causing her to twist her ankle, which occurred on 05/21/2023. I last saw the patient on 06/24/23 when she discontinued the use of boot. We discussed physical therapy; however, deferred due to her ROM and gradually resolving symptoms. While in the office today, the patient is attending physical therapy. She reports mild improvement in her right ankle pain and mobility with the help of PT; she continues to have pain and mild edema on both sides of the right ankle. [facility] Medical History History of superficial phlebitis Breast cancer, right Surgical History History of lumpectomy of right breast H/O left knee surgery Family History Mother Breast cancer Paternal Grandfather Heart problem Sister Cirrhosis of liver not due to alcohol Sister No problems noted. Sister No problems noted. Sister No problems noted. Sister Cirrhosis of liver not due to alcohol Daughter No problems noted. 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 Sexual orientation: Straight/Heterosexual Gender identity: Female Cognitive needs: No Hearing needs: No Vision needs: Yes (wears glasses) Female Reproductive History Menstrual Age of Menarche: 12 Review of Systems Const All systems reviewed & are unremarkable except as noted in HPI and below Physical Exam Const General: cooperative, healthy appearing and no acute distress Orientation/consciousness: patient oriented x3 Resp Effort & Inspection: normal respiratory effort and able to speak in complete sentences Cardio Rate: regular rate Peripheral pulses: Peripheral pulses 2+ throughout GI Palpation (GI): Soft to palpation Skin General skin exam: no rashes or lesions noted Lesions: no lesions Rashes: no rashes Neuro General: patient oriented x3 Extrem Other: Right ankle: Moderate edema over the lateral malleolus. No tenderness to palpation over the peroneal or tibial tendons. Able to dorsiflex and plantarflex, inversion and rafaela without limitations. Sensation intact. Pedal pulse intact. Assessment & Plan Assessment & Plan (1) Moderate right ankle sprain: Code(s): S93.401A - Sprain of unspecified ligament of right ankle, initial encounter Category: Medical Qualifiers: Encounter type: initial encounter Qualified Code(s): S93.401A - Sprain of unspecified ligament of right ankle, initial encounter Plan Ms. Brambila is a 58-year-old female who presents in the office today for a follow-up of a right ankle sprain status post missing a step causing her to twist her ankle, which occurred on 05/21/2023. I last saw the patient on 06/24/23 when she discontinued the use of boot. We discussed physical therapy; however, deferred due to her ROM and gradually resolving symptoms. While in the office today, the patient is attending physical therapy. She reports mild improvement in her right ankle pain and mobility with the help of PT; she continues to have pain and mild edema on both sides of the right ankle. The patient was encouraged to continue with physical therapy and activities as tolerated. She was recommended to use compresses to the right ankle. I educated the patient that she may have intermittent edema for up to a year after the injury. She should be concerned with increased pain associated with edema or inability to ambulate due to pain. Follow up will be PRN, or sooner if needed. Patient Instructions: Scribed by Deena Herzog, medical transcription editor, for Alesha Avendano PA-C on 11/22/23 at 3:26 pm EST. Coding Level of Care Code Est Pt Level 3 (06554) Diagnoses Moderate right ankle sprain, initial encounter S93.401A Encounter type: initial encounter
== END 2023-11-22 15:48 | disposition home or self-care (01) ==
PROVIDERS: PCP Nurse Practitioner Family; Visit Provider Physician Assistant
DX: S93.401A Sprain of unspecified ligament of right ankle, initial encounter (principal); X50.0XXA Overexertion from strenuous movement or load, initial encounter
CPT/HCPCS: 99213

== ENCOUNTER → 2023-11-22 15:22 | Outpatient (BNVA) | payer BC, SELFPAY | PROVIDERS: PCP Nurse Practitioner Family; Visit Provider Physician Assistant ==

== ENCOUNTER 2023-12-13 17:00 | Outpatient (RCR) | payer BC, SELFPAY | END 2023-12-14 13:03 | disposition home or self-care (01) | LOC: HO.PT 17:00 | PROVIDERS: PCP Nurse Practitioner Family; Visit Provider Nurse Practitioner Family | DX: S93.401D Sprain of unspecified ligament of right ankle, subsequent encounter (principal) | CPT/HCPCS: 97110; 97112; 97140; 97161; 97164; 97530; 97535 ==

== ENCOUNTER 2024-02-01 08:26 | Outpatient (AMB) | payer BC, SELFPAY ==
--- NOTE | 2024-02-01 08:42 | MHC.PC.OV ---
Vital Signs 02/01/24 08:45 Height 5 ft 7 in Weight 210 lb BMI 32.9 BP 118/70 Blood Pressure Location Rt brachial Position Sitting Respiration 14 Pulse 74 Pulse Source Pulse Oximeter Temp 97.8 F Temp Source Oral Pulse Oximetry (%) 96 Intake Visit Reasons: 6 months FU Vasculitis 30 min Intake Note: 6 month follow up Digital Program Manager Required: No Allergies No Known Allergies Allergy (Verified 02/01/24 08:59) Medication List - Last Reconciled 02/01/24 by LYNN Parmar- calcium citrate 250 mg PO DAILY cholecalciferol (vitamin D3) (Vitamin D3) 25 mcg PO DAILY colchicine 0.6 mg PO BID fluticasone propionate 50 mcg/actuation 1 spray intranasal DAILY Tobacco use date assessed: 08/17/23 Dental Screening Dental Screen Date: 04/15/23 HPI HPI Comments History of Present Illness Details Gracie 58-year-old female breast cancer 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 diagnosed January 2017 status post lumpectomy, completed radiation therapy 04/11/2017, completed tamoxifen therapy January 2022, Negative BRCA gene mutation 02/01/2017, GERD, MDD , seasonal allergies, vitamin-D deficiency, nonsystemic vasculitis, pilar cyst scalp, obesity Status post left knee surgery 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 [facility] Health maintenance Colonoscopy 12/06/2019 normal, repeat in 5 years due to history of breast cancer (2024) Mammogram 01/2024 @ [facility] - i do not have these results, reports abnormality on L breast, tomorrow 3D imaging and FU with provider after DEXA has never had one done - it has been ordered by myself to be done Fall 2023 when next Mammo is done ____pending Pap/HPV negative January 2020 Vaccines - UTD advised to get Shingles vaccine, pending, Flu____ Here today for routine follow up of chronic conditions. Chronic non systemic vasculitis has been well controlled without any recurrent symptoms since the last office visit. Abnormal mammogram: breast cancer survivor, previously having cancer on the right side. She had a recent mammogram at a different location, noticing an abnormality on the left breast, which was not previously affected. She expresses concern and plans follow-up imaging with 3D mammogram and possible ultrasound. Complaining of acid reflux symptoms triggered by foods such as Swedish food. Responsive to Tums. Not occurring daily. She describes onset of symptoms starting on Tuesday, characterized by sinus congestion, a tight non-productive cough, and right ear pain. She reports mild relief with sdnd-uhl-gkyzxyc medications like DayQuil and NyQuil. She denies fever, chills, nausea, vomiting, or significant sore throat. Exam: Awake alert NAD Sclera and conjunctiva clear bilat Nares w mucoid d/c bilat, turbinates pale and edematous, + sinus tenderness with palpation L frontal and maxillary sinuses TM intact and clear left, congested and bulging on R MMM, pharynx + PND RRR LS CTAB, no cough or wheezing Start of petechial rash noted to back and right lower leg Plan - Initiate treatment for acute sinusitis with Augmentin amoxicillin/clavulanate) one tablet twice daily with food to minimize stomach upset. - Patient to start colchicine at home given the recurrence of cutaneous manifestations of vasculitis. - Monitor for stress management to prevent exacerbation of vasculitis. - After today's visit, providing patient with bone density order papers for upcoming appointments. - The flu vaccination is deferred until acute symptoms are resolved. - Follow up with mammogram imaging results and additional consultation as needed for abnormal findings on the left breast. -continue p.r.n. use of Tums to control GERD if refractory or worsening advised to let me know and we could trial a course of PPI therapy Patient was informed and verbally consented to the use of an ambient scribe for clinic note documentation during this visit. Discussion Notes I discussed the current health status, emphasizing the acute sinusitis and nonsystemic vasculitis, outlining the plan for treatment with Augmentin and home-use colchicine. The conversation included an explanation about deferral of the flu vaccine due to her current illness, despite there being no formal contraindication. We discussed the recent abnormal mammogram finding on the left breast. I advised following up with a 3D mammogram and possible ultrasound for further evaluation. I emphasized the importance of managing stress to mitigate the recurrence of vasculitis. Advised about future vaccinations once acute symptoms resolve and to ensure documents are available for next tests. No new medication was started for reflux as symptoms were manageable. This note is constructed using voice recognition software. While every effort has been made to ensure accuracy in retail brand ambassador, still errors may have been included Sometimes, these errors may affect the content or meaning of the given sentence . Total time spent caring for the patient today was 41 minutes. This includes time spent before the visit reviewing the chart, time spent during the visit, and time spent after the visit on documentation [facility] Medical History History of superficial phlebitis Breast cancer, right Surgical History History of lumpectomy of right breast H/O left knee surgery Family History Mother Breast cancer Paternal Grandfather Heart problem Sister Cirrhosis of liver not due to alcohol Sister No problems noted. Sister No problems noted. Sister No problems noted. Sister Cirrhosis of liver not due to alcohol Daughter No problems noted. 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 1. Little interest or pleasure in doing things: not at all 2. Feeling down, depressed, or hopeless: not at all 3. Trouble falling or staying asleep, or sleeping too much: not at all 4. Feeling tired or having little energy: not at all 5. Poor appetite or overeating: not at all 6. Feeling bad about yourself - or that you are a failure or have let yourself or your family down: not at all 7. Trouble concentrating on things, such as reading the newspaper or watching television: not at all 8. Moving or speaking so slowly that other people could have noticed. Or the opposite - being so fidgety or restless that you have been moving around a lot more than usual: not at all 9. Thoughts that you would be better off or of hurting yourself in some way: not at all Total score: 0 31718 - PHQ-9 Billing: Yes Source: Developed by Drs. Addi Albright, Yaritza Johnson, Joseph Dey and colleagues, with an educational chris from [employer] [place]. Thrive Questionnaire Date Thrive assessed: 02/01/24 I am a: Patient What is your living situation today?: I have a steady place to live Within the past 12 months, did the food you bought not last and you didn't have the money to get more?: Never true Within the past 12 months, did you worry whether your food would run out before you got money to buy more?: Never true Do you have trouble paying for medicines?: No Do you have trouble getting transportation to medical appointments?: No Do you have trouble paying your heating and electricity bill?: No Do you have trouble taking care of your child, family member or friend?: No Do you have trouble with day-to-day activities such as bathing, preparing meals, shopping, managing finances, etc.?: No Are you currently unemployed and looking for a job?: No Are you interested in more education?: No Please select the resources that you would like help with: None Currently or been in a relationship where the following occur: No concerns reported THRIVE Score: 0 AUDIT C Alcohol Use Questionnaire (AUDIT-C) 1. How often do you have a drink containing alcohol?: Monthly or less 2. How many drinks containing alcohol do you have on a typical day when you are drinking?: 1 or 2 3. How often do you have six or more drinks on one occasion?: Never Total Score: 1 GRAYSON-7 AMB Questionnaire GRAYSON-7 Date GRAYSON - 7 assessed: 02/01/24 Feeling nervous, anxious, or on edge: 0 = Not at all Not being able to stop or control worryin = Not at all Worrying too much about different things: 0 = Not at all Trouble relaxin = Not at all Being so restless that it is hard to sit still: 0 = Not at all Becoming easily annoyed or irritable: 0 = Not at all Feeling afraid as if something awful might happen: 0 = Not at all Total GRAYSON-7 score (0-4 normal; 5-9 mild; 10-14 moderate; 15-21 severe): 0 Source: Developed by Drs. Addi Albright, Yaritza Johnson, Joseph Dey and colleagues, with an educational chris from [employer] [place]. GRAYSON-7 Assessment Billing GRAYSON-7 Assessment Tool: GRAYSON-7 Assessment 84883 Physical exam (Primary Care) Vital Signs: Last Vital Signs Temp 97.8 F 02/01/24 08:45 Pulse 74 02/01/24 08:45 Resp 14 02/01/24 08:45 BP 118/70 02/01/24 08:45 Pulse Ox 96 02/01/24 08:45 BMI result Body Mass Index 32.9 Tobacco/Smoking Status: Tobacco use Status Tobacco use date assessed 08/17/23 02/01/24 08:44 Patient Tobacco Use Status Never used Tobacco 02/01/24 08:44 e-Cigarette/Vaping Use Never Used 02/01/24 08:44 PHQ-9: PHQ-9 Score PHQ-9: Total score 0 02/01/24 08:59 Thrive Assessment: Date of Thrive Assessment Date Thrive assessed 02/01/24 02/01/24 08:44 Currently or been in a relationship where the following occur: No concerns reported Coding Level of Care Code Est Pt Level 5 (77187) Complex EM visit Add On G2211 Diagnoses Malignant neoplasm of lower-outer quadrant of right breast of female, estrogen receptor positive C50.511; Z17.0 Breast location: lower outer quadrant of breast Estrogen receptor status: positive Laterality: right Patient sex: female Abnormal mammogram of left breast R92.8 Vasculitis determined by biopsy of skin L95.9 Vitamin D deficiency E55.9 Gastroesophageal reflux disease without esophagitis K21.9 Esophagitis presence: without esophagitis Acute bacterial sinusitis J01.90; B96.89 Additional Codes GRAYSON-7 Assessment Billing - GRAYSON-7 Assessment Tool: GRAYSON-7 Assessment 74945 ([id number]) PHQ-9 - 89970 - PHQ-9 Billing: Yes ([id number]) Assessment & Plan Assessment & Plan (1) Breast cancer: Comment: right ductal carcinoma in situ lower outer quad/ER/AK +, BRCA negative dx 01/2017, status post lumpectomy, completed radiation therapy 04/11/2017, completed tamoxifen therapy January 2022. Managed by [facility] Code(s): C50.919 - Malignant neoplasm of unspecified site of unspecified female breast Category: Medical Qualifiers: Breast location: lower outer quadrant of breast Estrogen receptor status: positive Laterality: right Patient sex: female Qualified Code(s): C50.511 - Malignant neoplasm of lower-outer quadrant of right female breast; Z17.0 - Estrogen receptor positive status [ER+] (2) Abnormal mammogram of left breast: Code(s): R92.8 - Other abnormal and inconclusive findings on diagnostic imaging of breast Category: Medical (3) 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 To be done in follow up 2023 at [facility]. Code(s): E55.9 - Vitamin D deficiency, unspecified Category: Medical (5) Acid reflux: Comment: mild acid reflux. was taking famotidine 40 mg daily with excellent response previously, Could resume famotidine, continue with dietary modifications. al. She is a nonsmoker. She will follow-up as needed. We have encouraged her to call with questions or concerns. Code(s): K21.9 - Gastro-esophageal reflux disease without esophagitis Category: Medical Qualifiers: Esophagitis presence: without esophagitis Qualified Code(s): K21.9 - Gastro-esophageal reflux disease without esophagitis (6) Acute bacterial sinusitis: Code(s): J01.90 - Acute sinusitis, unspecified; B96.89 - Other specified bacterial agents as the cause of diseases classified elsewhere Plan . Medications: New amoxicillin-pot clavulanate 875-125 mg 1 tab PO BID 14 tabs 0RF 7 days Patient Instructions: What Is It? Sinuses are air-filled spaces behind the bones of the upper face: between the eyes and behind the forehead, nose and cheeks. The lining of the sinuses are made up of cells with tiny hairs on their surfaces called cilia. Other cells in the lining produce mucus. The mucus traps germs and pollutants and the cilia push the mucus out through narrow sinus openings into the nose. When the sinuses become inflamed or infected, the mucus thickens and clogs the openings to one or more sinuses. Fluid builds up inside the sinuses causing increased pressure. Also bacteria can become trapped, multiply and infect the lining. This is sinusitis. Prevention There are some measures you can take to decrease your risk of developing sinusitis. If you smoke cigarettes, you should quit. The smoke can irritate nasal passageways and increase the likelihood of infection. Nasal allergies can trigger sinus infections, too. By identifying the allergen (the substance causing the allergic reaction) and avoiding it, you can help prevent sinusitis. If you have congestion from a cold or allergies, the following may help to reduce the risk of developing sinusitis: Drink lots of water. This thins nasal secretions and keeps mucous membranes moist. Use steam to soothe nasal passages. Breathe deeply while standing in a hot shower, or inhale the vapor from a basin filled with hot water while holding a towel over your head. Avoid blowing your nose with great force, which can push bacteria into the sinuses. Some doctors advise periodic home nasal washings to clear secretions. This may help prevent, and also treat, sinus infections. Treatment Many sinus infections improve without treatment. However, several medications may speed recovery and reduce the chance that an infection will become chronic. Decongestants - Congestion often triggers sinus infections, and decongestants can open the sinuses and allow them to drain. Several are available: Pseudoephedrine (Sudafed) is available without prescription, alone or in combination with other medications in multi-symptom cold and sinus remedies. Pseudoephedrine can cause insomnia, racing pulse and jitteriness. Do not use if you have high blood pressure or a heart condition. Phenylephrine (such as Sudafed PE) is an alternative kxid-pun-jlsqhsh oral decongestant. If you take products containing oral phenylephrine, check with the pharmacist to be certain there is no interaction with other medications you take. Oxymetazoline (Afrin, Dristan and others) and phenylephrine (Jayson-Synephrine and others) are found in nasal sprays. They are effective and may be less likely to cause the side effects seen with pseudoephedrine. However, using a nasal decongestant for more than three days can cause worse symptoms when you stop the medication. This is called the rebound effect. Antihistamines - These medications help to relieve the symptoms of nasal allergies that lead to inflammation and infections. However, some doctors advise against using antihistamines during a sinus infection because they can cause excessive drying and slow the drainage process. Hpyp-uag-dlwvhpq antihistamines include diphenhydramine (Benadryl and others), chlorpheniramine (Chlor-Trimeton and others) and loratadine (Claritin). Fexofenadine (Karla) and cetrizine (Zyrtec) are available by prescription. Nasal steroids - Anti-inflammatory sprays such as mometasone (Nasonex) and fluticasone (Flonase), both available by prescription, reduce swelling of nasal membranes. Like antihistamines, nasal steroids can be most useful for those who have nasal allergies. Nasal steroids tend to produce less drying than antihistamines. Unlike nasal decongestants, nasal steroids can be used for prolonged periods. Saline nasal sprays - These salt-water sprays are safe to use and can provide some relief by adding moisture to the nasal passages, thinning mucus secretions and helping to flush out any bacteria that may be present. Pain relievers - Acetaminophen (Tylenol), ibuprofen (Advil, Motrin and others) or naproxen (Aleve) can be taken sinus pain. Antibiotics - Your doctor may prescribe an antibiotic if he or she suspects that a bacterial infection is causing your sinusitis. If you start taking an antibiotic, complete the entire course so that the infection is completely killed off. Not all cases of sinusitis require antibiotic treatment: Talk with your doctor about whether an antibiotic is right for you. Keep in mind that antibiotics can cause side effects, such as allergic reactions, rash and diarrhea. In addition, overusing antibiotics eventually leads to the spread of bacteria that no longer can be killed by the most commonly prescribed antibiotics. When To Call A Professional Contact a doctor if you experience facial pain along with a headache and fever, cold symptoms that last longer than seven to 10 days, or persistent green discharge from the nose. If your symptoms don't improve within a week of beginning treatment, call your doctor. Call sooner if symptoms are getting worse. If you have repeated bouts of acute sinusitis, you may have allergies or another treatable cause of sinus congestion. Ask your doctor for advice.
[2024-02-01 08:45] VITALS: BP 118/70; PULSE 74; RESP 14; TEMP 36.6; O2SAT 96; BMI 32.9
== END 2024-02-01 09:17 | disposition home or self-care (01) ==
PROVIDERS: PCP Nurse Practitioner Family; Visit Provider Nurse Practitioner Family
DX: C50.511 Malignant neoplasm of lower-outer quadrant of right female breast (principal); Z17.0 Estrogen receptor positive status [ER+]; R92.8 Other abnormal and inconclusive findings on diagnostic imaging of breast; L95.9 Vasculitis limited to the skin, unspecified; E55.9 Vitamin D deficiency, unspecified; K21.9 Gastro-esophageal reflux disease without esophagitis; J01.90 Acute sinusitis, unspecified; B96.89 Other specified bacterial agents as the cause of diseases classified elsewhere

== ENCOUNTER → 2024-02-01 08:26 | Outpatient (BNVA) | payer BC, SELFPAY | PROVIDERS: PCP Nurse Practitioner Family; Visit Provider Nurse Practitioner Family | DX: C50.511 Malignant neoplasm of lower-outer quadrant of right female breast (principal); Z17.0 Estrogen receptor positive status [ER+]; R92.8 Other abnormal and inconclusive findings on diagnostic imaging of breast; L95.9 Vasculitis limited to the skin, unspecified; E55.9 Vitamin D deficiency, unspecified; K21.9 Gastro-esophageal reflux disease without esophagitis; J01.90 Acute sinusitis, unspecified; B96.89 Other specified bacterial agents as the cause of diseases classified elsewhere | CPT/HCPCS: 96127 ==

== ENCOUNTER 2024-03-20 15:52 | Outpatient (REF) | payer BC, SELFPAY ==
[2024-03-30 15:00] LABS: HPV Genotype 16 Negative (Negative); HPV Genotype 18 Negative (Negative); HPV High Risk Negative (Negative)
== END 2024-03-20 15:53 | disposition home or self-care (01) ==
LOC: HO.LNP 15:52
PROVIDERS: PCP Nurse Practitioner Family; Visit Provider Obstetrics & Gynecology
DX: Z01.419 Encounter for gynecological examination (general) (routine) without abnormal findings (principal)
CPT/HCPCS: 87626; 88175

== ENCOUNTER 2024-06-06 11:30 | Outpatient (AMB) | payer BC, SELFPAY ==
--- NOTE | 2024-06-06 11:44 | A.OFFVIS_ITS ---
Vital Signs 06/06/24 11:49 Height 5 ft 7 in Weight 208 lb BMI 32.6 Intake Visit Reasons: Vaginal burning Medical Assistant Instructor Required: No Information Interpreted: non-clinical & clinical Catalyst Unit Operator: Catalyst Unit Operator Present (Maria Esther JULIEN) Accompanied by: Self / Same As Patient Allergies No Known Allergies Allergy (Verified 06/06/24 11:49) HPI Comments Details: Presenting complaining of dysuria, frequency and vulvovaginal irritation, no vaginal discharge or odor. [facility] Medical History History of superficial phlebitis Breast cancer, right Surgical History History of lumpectomy of right breast H/O left knee surgery Family History Mother Breast cancer Paternal Grandfather Heart problem Sister Cirrhosis of liver not due to alcohol Sister No problems noted. Sister No problems noted. Sister No problems noted. Sister Cirrhosis of liver not due to alcohol Daughter No problems noted. 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 Sexual orientation: Straight/Heterosexual Gender identity: Female Cognitive needs: No Hearing needs: No Vision needs: Yes (wears glasses) Female Reproductive History Menstrual Age of Menarche: 12 Review of Systems Const All systems reviewed & are unremarkable except as noted in HPI and below Physical Exam Vital Signs: BMI result Body Mass Index 32.6 General: Yes no CVA tenderness External Female Exam: normal external appearance and normal appearance of the u rethra Speculum Exam - Vagina: normal appearance of the vagina, normal palpation, no lesions and no masses Speculum Exam - Cervix: normal appearance of the cervix, normal palpation, no lesions, no masses and nontender Bimanual exam- vagina & uterus: normal bimanual exam, normal palpation, uterine size normal, normal palpation, uterine shape normal, No Cervical tenderness present and non-tender Bimanual Exam- Adnexa, other: normal adnexae Back/Spine/Pelvis Back: no CVA tenderness Results AMB Urinalysis Dipstick UR Leukocytes Negative Last Edit by Maria Esther Torres, PORTAL ADMINISTRATOR on 06/06/24 12:14 UR Nitrite Negative Last Edit by Maria Esther Torres, PORTAL ADMINISTRATOR on 06/06/24 12:14 UR Urobilinogen Normal Last Edit by Maria Esther Torres, PORTAL ADMINISTRATOR on 06/06/24 12:14 UR Protein Negative Last Edit by Maria Esther Torres, PORTAL ADMINISTRATOR on 06/06/24 12:14 UR Ph 6.0 Last Edit by Maria Esther Torres, PORTAL ADMINISTRATOR on 06/06/24 12:14 UR Blood Trace Last Edit by Maria Esther Torres, PORTAL ADMINISTRATOR on 06/06/24 12:14 UR Specific [place] 1.005 Last Edit by Maria Esther Torres, PORTAL ADMINISTRATOR on 06/06/24 12:14 UR Ketone Negative Last Edit by Maria Esther Torres, PORTAL ADMINISTRATOR on 06/06/24 12:14 UR Bilirubin Negative Last Edit by Maria Esther Torres, PORTAL ADMINISTRATOR on 06/06/24 12:14 UR Glucose Negative Last Edit by Maria Esther Torres, [facility] on 06/06/24 12:14 Assessment & Plan Assessment & Plan (1) Vulvovaginitis: Code(s): N76.0 - Acute vaginitis Category: Medical Plan: GC/CT with BV panel collected, urine dip and urine culture sent (2) Microscopic hematuria: Code(s): R31.29 - Other microscopic hematuria Category: Medical Plan: Urine dip showed microscopic hematuria, urine culture sent. Will repeat urine dip in 2 weeks. Discussed with the patient the possible causes of microscopic hematuria including but not limited to: interstitial cystitis, polyps, stones, masses, urethral inflammatory processes and others. If Urine Culture is negative and repeat urine dip in 2 weeks shows persistent microscopic hematuria, will proceed with CT abdomen/pelvis and urology referral. Instructions given the patient to schedule a 2 week urine dip follow-up appointment. All questions answered and the patient verbalized understanding. Orders: Orders Urine Culture Today R31.29 - Other microscopic hematuria AMB Urinalysis Dipstick Today R31.29 - Other microscopic hematuria CT NG by PCR Today N94.89 - Other specified conditions associated with female genital organs and menstrual cycle Bacterial Vaginosis Panel Today N94.89 - Other specified conditions associated with female genital organs and menstrual cycle Coding Level of Care Code Est Pt Level 3 (08799) Diagnoses Vulvovaginitis N76.0 Microscopic hematuria R31.29
[2024-06-06 11:49] VITALS: BMI 32.6
== END 2024-06-06 12:12 | disposition home or self-care (01) ==
LOC: HO.HWS 11:30
PROVIDERS: PCP Nurse Practitioner Family; Visit Provider Obstetrics & Gynecology
DX: N76.0 Acute vaginitis (principal); R31.29 Other microscopic hematuria
CPT/HCPCS: 99213

== ENCOUNTER 2024-06-06 11:30 | Outpatient (REF) | payer BC, SELFPAY ==
[2024-06-06 15:44] LABS: Bacterial Vaginosis PCR NEGATIVE (Negative); Candida Group PCR NOT DETECTED (Not Detect); Candida glab krusei PCR NOT DETECTED (Not Detect); Trichomonas vaginalis PCR NOT DETECTED (Not Detect)
[2024-06-06 16:14] LABS: CT PCR NOT DETECTED (Not Detect.); NG PCR NOT DETECTED (Not Detect.)
== END 2024-06-06 11:31 | disposition home or self-care (01) ==
LOC: HO.LNP 11:30
PROVIDERS: PCP Nurse Practitioner Family; Visit Provider Obstetrics & Gynecology
DX: N76.0 Acute vaginitis (principal); N94.89 Other specified conditions associated with female genital organs and menstrual cycle; R31.29 Other microscopic hematuria
CPT/HCPCS: 81002; 81515; 87086; 87491; 87591

== ENCOUNTER 2024-06-21 07:57 | Outpatient (AMB) | payer BC, SELFPAY ==
--- NOTE | 2024-06-21 08:00 | MHC.OFFVIS ---
Vital Signs 06/21/24 08:03 Height 5 ft 7 in Weight 208 lb BMI 32.6 Intake Visit Reasons: urine dip Allergies No Known Allergies Allergy (Verified 06/06/24 11:49) HPI Comments Details: Presenting for repeat urine dip. Patient had microscopic hematuria on urine dip last visit, urine culture was negative [facility] Medical History History of superficial phlebitis Breast cancer, right Surgical History History of lumpectomy of right breast H/O left knee surgery Family History Mother Breast cancer Paternal Grandfather Heart problem Sister Cirrhosis of liver not due to alcohol Sister No problems noted. Sister No problems noted. Sister No problems noted. Sister Cirrhosis of liver not due to alcohol Daughter No problems noted. 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 Sexual orientation: Straight/Heterosexual Gender identity: Female Cognitive needs: No Hearing needs: No Vision needs: Yes (wears glasses) Female Reproductive History Menstrual Age of Menarche: 12 Review of Systems Const All systems reviewed & are unremarkable except as noted in HPI and below Reports as per HPI and Reports no additional complaints GI Reports no additional complaints Reports no additional complaints Physical Exam Vital Signs: BMI result Body Mass Index 32.6 Assessment & Plan Assessment & Plan (1) Microscopic hematuria: Code(s): R31.29 - Other microscopic hematuria Category: Medical Plan: Repeat Urine dip showed persists microscopic hematuria. Discussed with the patient the possible causes of microscopic hematuria including but not limited to: interstitial cystitis, polyps, stones, masses, urethral inflammatory processes and others. CT abdomen/pelvis and urology referral ordered. Instructed the patient to call our office back in case a referral appointment is not scheduled, missed or canceled so that we will assist on rescheduling another appointment, the patient verbalized understanding agreed with the plan. Orders: Orders CT abdomen pelvis wo/w IV con Today R31.29 - Other microscopic hematuria Referrals Urology Referral R31.29 - Other microscopic hematuria Coding Level of Care Code Est Pt Level 3 (42553) Diagnoses Microscopic hematuria R31.29
[2024-06-21 08:03] VITALS: BMI 32.6
== END 2024-06-21 08:26 | disposition home or self-care (01) ==
LOC: HO.HWS 07:57
PROVIDERS: PCP Nurse Practitioner Family; Visit Provider Obstetrics & Gynecology
DX: R31.29 Other microscopic hematuria (principal)
CPT/HCPCS: 99213

== ENCOUNTER 2024-07-14 09:56 | Outpatient (REF) | payer BC, SELFPAY ==
[2024-07-14 10:49] LABS: Blood Urea Nitrogen 13 mg/dL (9-16); Estimated Glomerular Filt Rate > 60
== END 2024-07-14 09:57 | disposition home or self-care (01) ==
LOC: HO.LAB 09:56
PROVIDERS: PCP Nurse Practitioner Family; Visit Provider Obstetrics & Gynecology
DX: R31.29 Other microscopic hematuria (principal)
CPT/HCPCS: 36415; 82565; 84520

== ENCOUNTER 2024-07-17 15:20 | Outpatient (REF) | payer BC, SELFPAY ==
--- NOTE | ~2024-07-17 | CT_ITS ---
CLINICAL HISTORY: R31.29 - Other microscopic hematuria CT abdomen and pelvis with and without contrast Comparison: None Findings: No consolidation at the lung bases. Mild amount of subsegmental atelectasis versus linear scarring. Unremarkable gallbladder. Hepatic steatosis. No hydronephrosis or nephrolithiasis. The kidneys enhance normally and excrete contrast symmetrically. Distended bladder, measuring up to 14.4 cm in craniocaudal dimension. No bladder stone. The other solid organs are unremarkable. No bowel wall thickening or dilation. A normal appendix is identified. No aneurysm. Mild calcified atherosclerotic disease. No lymphadenopathy. No ascites. No acute osseous abnormality. Impression: No urinary tract stone or obstruction. Mild distention of the bladder. This document has been electronically signed by: Nell Ruiz MD on 07/18/2024 21:47:47
[2024-07-17] MEDS: iohexoL 350 MG/ML 100 ML INFUS..BTL 85 ML IV (16:47)
== END 2024-07-17 15:21 | disposition home or self-care (01) ==
LOC: HO.CT 15:20
PROVIDERS: PCP Nurse Practitioner Family; Visit Provider Obstetrics & Gynecology
DX: R31.29 Other microscopic hematuria (principal)
CPT/HCPCS: 74178; Q9967

== ENCOUNTER → 2024-07-17 15:24 | Outpatient (BNV) | payer BC, SELFPAY | PROVIDERS: PCP Nurse Practitioner Family; Visit Provider Radiology Diagnostic Radiology | DX: R31.29 Other microscopic hematuria (principal) | CPT/HCPCS: 74178 ==

== ENCOUNTER 2024-08-14 15:41 | Outpatient (AMB) | payer BC, SELFPAY ==
[2024-08-14 15:44] VITALS: BP 138/72; PULSE 72; O2SAT 96; BMI 31.8
--- NOTE | 2024-08-14 15:44 | A.OFFVIS_ITS ---
Vital Signs 08/14/24 15:44 Height 5 ft 7 in Weight 203 lb BMI 31.8 BP 138/72 Blood Pressure Location Rt brachial Position Sitting Pulse 72 Pulse Source Pulse Oximeter Pulse Oximetry (%) 96 Oxygen Delivery Method Room Air Intake Visit Reasons: Colonoscopy Screening Intake Note: New pt for recall colo screening. Last in 2019. Prev JM pt. CC; Pt denies any GI sx or concerns at this time. Carding Doubler Required: No Accompanied by: Self / Same As Patient Allergies No Known Allergies Allergy (Verified 08/14/24 15:44) HPI HPI Colonoscopy Screening: Details: 59-year-old female here for preprocedural meeting to discuss a screening colonoscopy. She is referred by Reyna Scott. PMX Obesity History of right breast cancer Allergic rhinitis Leukocytoclastic vasculitis Depression GERD * SURGICAL HISTORY Lumpectomy right breast Knee surgery * ALLERGIES: NKDA * Thinker Thing LABS: None in over a year in our system TODAY'S VISIT She vomited the Go Lytely in the past, so she would really like the Suprep. She denies any bowel or upper GI problems. She denies any cardiac or respiratory problems. There are no prior problems with anesthesia or sedation. No ID problems. There is no known FHX of crc or polyps, she never had a polyp but personally had breast cancer. [facility] Medical History (Updated 08/14/24 @ 16:04 by FARHEEN Maynard) Encounter for general adult medical examination without abnormal findings History of superficial phlebitis Breast cancer, right Surgical History (Updated 08/14/24 @ 16:04 by FARHEEN Maynard) H/O colonoscopy S/P breast biopsy, left History of lumpectomy of right breast H/O left knee surgery Family History (Reviewed 08/14/24 @ 15:44 by Jesus Alberto Berger [facility]) Mother Breast cancer Paternal Grandfather Heart problem Sister Cirrhosis of liver not due to alcohol Sister No problems noted. Sister No problems noted. Sister No problems noted. Sister Cirrhosis of liver not due to alcohol Daughter No problems noted. Brother HTN (hypertension) Post traumatic stress disorder (PTSD) Cardiomyopathy Social History (Reviewed 08/14/24 @ 15:44 by Jesus Alberto Berger [facility]) Household Members: Spouse Housing: House Are you a primary childcare aide to a significant other at home: No Do you presently have visiting nurse or other home services: No 75 years or older and lives alone: No Alcohol intake: current Alcohol intake frequency: holidays/special occasions only Patient Tobacco Use Status: Never used Tobacco e-Cigarette/Vaping Use: Never Used Second Hand Smoke Exposure: No service: No Current occupational status: employed 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 Sexual orientation: Straight/Heterosexual Gender identity: Female Cognitive needs: No Hearing needs: No Vision needs: Yes (wears glasses) Female Reproductive History Menstrual Age of Menarche: 12 Review of Systems Const Denies fatigue, Denies fever(s), Denies night sweats, Denies poor appetite and Denies weight loss Eyes Details: glasses Reports requires corrective lenses ENT Reports Normal hearing present, Denies dental pain, Denies dysphagia, Denies hearing loss, Denies mouth pain, Denies odynophagia, Denies throat swelling, Denies tongue swelling and Reports other (Dentition adequate) GI Details: Denies abdominal pain, Denies melena, Denies bloating, Denies hematochezia, Denies constipation, Denies GI cramping, Denies dysphagia, Denies excessive flatus, Denies early satiety, Denies heartburn, Denies diarrhea, Denies nausea, Denies odynophagia, Denies vomiting and Denies hematemesis Skin/Breast Denies pruritus, Denies lesions, Denies rash and Denies jaundice Neuro Reports Normal hearing present and Denies Abnormal speech present Endo Denies fatigue Aller/Immun Denies throat swelling and Denies tongue swelling Physical Exam Vital Signs: Last Vital Signs Pulse 72 08/14/24 15:44 BP 138/72 08/14/24 15:44 Pulse Ox 96 08/14/24 15:44 Oxygen Delivery Method Room Air 08/14/24 15:44 BMI result Body Mass Index 31.8 Const General: cooperative, no acute distress, well developed and well groomed Nutritional Appearance: well nourished and obese Orientation/consciousness: oriented to person, oriented to place and oriented to time Limitations: No language barrier HEENT Head: Yes normocephalic and Yes atraumatic Eyes General: appearance normal, both eyes and all related structures Pupils: Equal, round and reactive pupils present Neck Neck: Yes normal visual inspection and Yes no lymphadenopathy Thyroid: Thyroid normal Resp Effort & Inspection: normal respiratory effort and able to speak in complete sentences Auscultation: clear to auscultation bilaterally Cardio Rate: regular rate Rhythm: regular rhythm Heart sounds: Normal, physiologic split S2 sound present Peripheral pulses: radial pulses present and posterior tibial pulses present GI Inspection: No distended, Yes Abdominal panniculus present and Yes obesity Palpation (GI): Soft to palpation, nontender, no guarding, not rigid and No hepatosplenomegaly present Percussion: Yes normal to percussion Auscultation: normal bowel sounds Rectal Exam - Female: deferred Skin General skin exam: no rashes or lesions noted, turgor normal, skin not dry, no jaundice, No spider nevi and no striae Rashes: no rashes Nails: normal Neuro General: oriented to person, oriented to place and oriented to time Cranial nerves: Yes Equal, round and reactive pupils present and Yes Normal hearing present Speech: No Abnormal speech present Extrem General: Yes normal to inspection, No clubbing, No cyanosis and No edema Psych Appearance: grossly normal and well kempt Mental Status: mental status grossly normal Speech and movement: Normal speech and movement present Affect: normal affect Attitude: cooperative Thought process: Normal thought process present and not confabulating Thought content: Normal thought content present Insight: Good insight present (Psych) Judgement: Good judgement present (Psych) Assessment & Plan Assessment & Plan (1) Pre-op examination: Code(s): Z01.818 - Encounter for other preprocedural examination Category: Medical (2) Class 1 obesity with body mass index (BMI) of 32.0 to 32.9 in adult: Code(s): E66.9 - Obesity, unspecified; Z68.32 - Body mass index [BMI] 32.0-32.9, adult Category: Medical Qualifiers: Obesity type: due to excess calories Serious obesity comorbidity presence: without serious comorbidity Qualified Code(s): E66.09 - Other obesity due to excess calories; Z68.32 - Body mass index [BMI] 32.0-32.9, adult (3) Breast cancer: Comment: 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 Managed by [facility] Code(s): C50.919 - Malignant neoplasm of unspecified site of unspecified female breast Category: Medical Qualifiers: Breast location: lower outer quadrant of breast Estrogen receptor st atus: positive Laterality: right Patient sex: female Qualified Code(s): C50.511 - Malignant neoplasm of lower-outer quadrant of right female breast; Z17.0 - Estrogen receptor positive status [ER+] Plan She vomited the Go Lytely in the past, so she would really like the Suprep. She denies any bowel or upper GI problems. She denies any cardiac or respiratory problems. There are no prior problems with anesthesia or sedation. No ID problems. There is no known FHX of crc or polyps, she never had a polyp but personally had breast cancer. Orders: Orders Comprehensive Met. Panel Today Z01.818 - Encounter for other preprocedural examination Complete Blood Count Auto Diff Today Z01.818 - Encounter for other preprocedural examination Colonoscopy - GI Use Only Today Z01.818 - Encounter for other preprocedural examination Medications: New sodium,potassium,mag sulfates 17.5-3.13-1.6 gram (Suprep Bowel Prep Kit) 480 mL orally; FOR COLONOSCOPY PREP 354 mL 0RF Coding Level of Care Code New Pt Level 3 (80728) Diagnoses Pre-op examination Z01.818 Class 1 obesity due to excess calories without serious comorbidity with body mass index (BMI) of 32.0 to 32.9 in adult E66.09; Z68.32 Obesity type: due to excess calories Serious obesity comorbidity presence: without serious comorbidity Malignant neoplasm of lower-outer quadrant of right breast of female, estrogen receptor positive C50.511; Z17.0 Breast location: lower outer quadrant of breast Estrogen receptor status: positive Laterality: right Patient sex: female
== END 2024-08-14 16:17 | disposition home or self-care (01) ==
LOC: HO.HGI 15:42
PROVIDERS: PCP Nurse Practitioner Family; Visit Provider Nurse Practitioner
DX: Z01.818 Encounter for other preprocedural examination (principal); Z12.11 Encounter for screening for malignant neoplasm of colon; C50.511 Malignant neoplasm of lower-outer quadrant of right female breast; Z17.0 Estrogen receptor positive status [ER+]; E66.09 Other obesity due to excess calories; Z68.32 Body mass index [BMI] 32.0-32.9, adult
CPT/HCPCS: S0285

== ENCOUNTER 2024-08-30 10:11 | Outpatient (REF) | payer BC, SELFPAY ==
[2024-08-30 11:31] LABS: MANUAL DIFF FLAG NO
[2024-08-30 11:54] LABS: Hematocrit 42.3 % (37.0-47.0); Hemoglobin 14.1 g/dl (12.0-16.0); Imm Gran Abs Auto 0.01 X10*3/uL (0.00-0.03); Imm Gran Pct Auto 0.2 % (0.0-0.4); Lymphocytes Absolute Auto 2.3 X10*3/uL (1.2-4.9); Mean Corpuscular HGB Conc 33.3 g/dl (31.0-35.0); Mean Corpuscular Hemoglobin 29.7 pg (27.0-33.0); Mean Corpuscular Volume 89.1 fL (80.0-98.0); NRBC Abs Auto 0.000 X10*3/uL (0.0-0.012); NRBC Pct Auto 0.0 /100WBC (0.0-0.2); Platelet Count 295 X10*3/uL (160-400); Red Blood Count 4.75 X10*6/uL (4.20-5.50); White Blood Count 5.4 X10*3/uL (4.8-10.8)
[2024-08-30 16:44] LABS: Alanine Aminotransferase 52 U/L (0-31); Albumin Level 4.2 g/dL (3.5-5.0); Alkaline Phosphatase 74 U/L (39-117); Anion Gap 11 (12-20); Aspartate Amino Transferase 55 U/L (5-31); Blood Urea Nitrogen 12 mg/dL (9-16); Calcium 9.3 mg/dL (8.4-10.2); Carbon Dioxide 27 mmol/L (22-29); Chloride 105 mmol/L (96-108); Estimated Glomerular Filt Rate > 60; Potassium 4.4 mmol/L (3.3-5.1); Sodium 139 mmol/L (135-145); Total Protein 7.2 g/dL (6.5-8.0)
== END 2024-08-30 10:12 | disposition home or self-care (01) ==
LOC: HO.WFDLDS 10:11
PROVIDERS: Visit Provider Nurse Practitioner
DX: Z01.818 Encounter for other preprocedural examination (principal)
CPT/HCPCS: 36415; 80053; 85025

== ENCOUNTER 2024-09-03 13:18 | Outpatient (AMB) | payer BC, SELFPAY ==
--- NOTE | 2024-09-03 13:20 | A.OFFPC_ITS ---
Vital Signs 09/03/24 13:23 Height 5 ft 7 in Weight 202 lb 4 oz BMI 31.7 BP 128/74 Blood Pressure Location Lt brachial Position Sitting Respiration 13 Pulse 58 Pulse Source Pulse Oximeter Temp 97.4 F Temp Source Oral Pulse Oximetry (%) 96 Oxygen Delivery Method Room Air Intake Visit Reasons: 6 mo cpe Intake Note: CPE Therapist Asst Required: No Allergies No Known Allergies Allergy (Verified 09/03/24 13:30) Medication List - Last Reconciled 09/03/24 by LYNN Parmar- calcium citrate 250 mg PO DAILY cholecalciferol (vitamin D3) (Vitamin D3) 25 mcg PO DAILY colchicine 0.6 mg PO BID fluticasone propionate 50 mcg/actuation 1 spray intranasal DAILY sodium,potassium,mag sulfates 17.5-3.13-1.6 gram (Suprep Bowel Prep Kit) 480 mL orally; FOR COLONOSCOPY PREP Tobacco use date assessed: 09/03/24 Dental Screening Dental Screen Date: 09/03/24 Did you have a dental visit in the last 12 months?: Yes Did you have a dental problem in the last 6 months where you did not have access to dental care?: No Was dental information given to patient?: Patient has dentist HPI HPI Comments History of Present Illness Details Gracie 59-year-old female breast cancer 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 in lower outer quadrant/ER/[place] positive diagnosed January 2017 status post lumpectomy, completed radiation therapy 04/11/2017, completed tamoxifen therapy January 2022, Negative BRCA gene mutation 02/01/2017, GERD, MDD , seasonal allergies, vitamin-D deficiency, nonsystemic vasculitis, pilar cyst scalp, obesity, microscopic hematuria , hepatic steaotosis (ct 06/2024), CAD (ct 06/2024) Status post left knee surgery 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 This was normal. + calcification. Now needs mammos q 6 months, last done 08/2024; next 01/2025 and will also see breast specialist @ this time. DEXA has never had one done - to be done Fall at [facility] Pap/HPV pap 02/2024 Vaccines - UTD advised to get Shingles vaccine, pending History of Present Illness - The patient is a 59-year-old female pr esenting for a complete physical exam. - Breast cancer: Post-surgical (lumpecto my) with Radiation, left breast monitoring, calcium presence, biopsy negative. - Anxiety: Increased,relative to health & significant with work stress, causes heart racing, poor sleep. would like to trial medications. - Microscopic hematuria: CT imaging done by HYDROELECTRIC MACHINERY MECHANIC, reviewed w/ her today; referred to Uro. - Elevated LFTs, bilirubin: Recent sligh t increases; admits to drinking alcohol while on vacation; otherwise limits etoh intake. Denies APAP use. Denies abd pain. - Fatty liver: Confirmed via CT - Eating poorly. Drinking soda. not exe rcising. - CAD noted on CT imaging reviewed w/ her today. - Vasculitis - comes on legs w/ stress. Tx w/ colchicine PRN. - Vit d def on supplement - Developed sore throat and cough about 1 week ago; feels back to baseline, has mild cough. Family History - Father: Heart issues - Paternal grandfather: Heart issues - Brother: Heart issues related to traum a Social History - Healthcare proxy for father resulting in periodic stress. - Stress primarily work-related, with gu ilt over leisure activities. - Exercises twice a week at the gym with friends to manage stress. - Increased consumption of processed jemal ds and Coca[employer] during stress periods. Health Maintenance - Scheduled mammograms every six months, next in January. - Repeat labs to monitor liver enzymes a nd bilirubin post-vacation. - aim to maintain LDL levels below 70. - Consideration of shingles vaccine pend ing, flu vaccine deferred until flu seas on. - Bone density rescheduled for either la te September or early October. Review of Systems - Psychological: Reports anxiety, heart racing, sleep disturbances. - Gastrointestinal: Denies abdominal efren n. - Genitourinary: Previously had dysuria and blood in urine. - Respiratory: Reports persistent cough following sore throat. Physical Exam General: Well developed, well nourished, in no acute distress. Appears stated age. Head: Normocephalic, atraumatic, pilaris cyst noted frontal scalp Eyes: Pupils are equal, round and reactive to light and accommodation. Conjunctivae are clear. Vision grossly normal. Ears: TMs intact bilat with mild congestion, EACS WNL Nose: Patent, without discharge. Mouth: There are no ulcers or lesions noted. No inflammation, no post nasal drip, no plaques nor exudates. Neck: Supple, no adenopathy or thyromegaly, no carotid bruit. Lungs: Clear to auscultation bilaterally. No rales, rhonchi or wheeze noted. Good air flow in all dave. Heart: Regular rate and rhythm. No murmurs, click, rubs or gallops are noted. Abdomen: Bowel sounds present in all quadrants. The abdomen is soft, nontender, with no masses or organomegaly noted. No hernias are noted. : Deferred. Reviewed recommendations for routine HYDROELECTRIC MACHINERY MECHANIC. Musculoskeletal: Joints are nontender, without swelling, redness, or effusions. Range of motion is observed to be normal. Pulses: Peripheral pulses are equal and palpable bilaterally. Extremities: No clubbing, cyanosis nor edema is noted. Neurologic: Gait and station normal. Cranial Nerves 2-12 intact. Motor strength grossly symmetrical and intact. No sensory loss. Balance normal. Skin: No ulcers, or lesions noted. Turgor is good. Skin color is good. Hair and nails are without abnormalities. Petechial rash bilateral anterior lower extremities and abdomen Psych: Normal eye contact, affect and mood appropriate, and normal interactions. Patient is alert and appropriate to context. Results labs 08/30/24 ^ LFTs, bili - Imaging: Fatty liver on CT, negative f or masses. Discussion Notes During today's visit, I reviewed and discussed the patient's concerns comprehensively. We examined the history of breast cancer and follow-up imaging, noting the negative biopsy and ongoing six-month surveillance for calcifications. For anxiety, I suggested buspirone due to its efficacy for managing symptoms, detailing its dosage flexibility and low side-effect profile. The concern for elevated liver enzymes and bilirubin was addressed with plans for repeat labs post-vacation, emphasizing healthy diet choices. Fatty liver and early-coronary artery disease were noted, with dietary adjustments discussed. Consent for initiating buspirone was obtained, outlining its potential benefits in stress management during high-anxiety scenarios. Assessment and Plan 1. Anxiety - Start Buspirone 7.5mg po QD, titrate q 2 weeks to effect. - Increase exercise; manage work stress. 2. Breast Cancer - Biannual mammograms. - Specialist follow-up. 3. Fatty Liver/elevated LFT - most likely diet/etoh related; negativ e CT imaging. - Repeat labs after vacation. - Reduce alcohol, improve diet. 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 Micro hematuria - Fu with Uro as scheduled. 5. Coronary Disease - Monitor cholesterol. - Consider medication for LDL control. Cont all meds, care w/ care team. RTO in 6-8 weeks to fu on lab results and to assess buspar effects on GRAYSON, sooner PRN Patient Instructions - Start taking Buspirone as discussed. - Continue regular exercise at the gym. - Schedule and attend all follow-up mamm ograms. - Plan for cholesterol check post-vacati on. - Pursue a healthier diet, reduce proces sed food intake. - Return for repeat labs after a two-wee k alcohol washout. Consent Patient was informed and verbally consented to the use of an ambient scribe for clinic note documentation during this visit. An additional 30 minutes was spent addressing the problem(s) noted at todays visit. This includes time spent before the visit reviewing the chart, time spent during the visit, and time spent after the visit on documentation reviewing laboratory results, diagnostic imaging, medications, performing a medically necessary evaluation, counseling on diagnoses, care coordination, ordering appropriate tests, ordering appropriate medications, review of tests performed by other providers, reporting test results with the patient, communication with other healthcare providers. [facility] Medical History (Updated 09/03/24 @ 14:55 by Reyna Scott, LYNN-MARK) Abnormal mammogram of left breast Breast cancer, right Encounter for general adult medical examination without abnormal findings History of mammogram (~08/2024) History of superficial phlebitis Moderate right ankle sprain Surgical History (Updated 09/03/24 @ 14:54 by LYNN Parmar-MARK) H/O colonoscopy (~2019) H/O left knee surgery History of lumpectomy of right breast S/P breast biopsy, left Family History Mother Breast cancer Paternal Grandfather Heart problem Sister Cirrhosis of liver not due to alcohol Sister No problems noted. Sister No problems noted. Sister No problems noted. Sister Cirrhosis of liver not due to alcohol Daughter No problems noted. 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 1. Little interest or pleasure in doing things: not at all 2. Feeling down, depressed, or hopeless: not at all 3. Trouble falling or staying asleep, or sleeping too much: not at all 4. Feeling tired or having little energy: not at all 5. Poor appetite or overeating: not at all 6. Feeling bad about yourself - or that you are a failure or have let yourself or your family down: not at all 7. Trouble concentrating on things, such as reading the newspaper or watching television: not at all 8. Moving or speaking so slowly that other people could have noticed. Or the opposite - being so fidgety or restless that you have been moving around a lot more than usual: not at all 9. Thoughts that you would be better off or of hurting yourself in some way: not at all Total score: 0 Depression Screening Interpretation: Negative Depression Screening Done: Yes 54586 - PHQ-9 Billing: Yes Source: Developed by Drs. Addi Albright, Yaritza Johnson, Joseph Dey and colleagues, with an educational chris from [employer] Thrive Questionnaire Date Thrive assessed: 09/03/24 I am a: Patient What is your living situation today?: I have a steady place to live Within the past 12 months, did the food you bought not last and you didn't have the money to get more?: Never true Within the past 12 months, did you worry whether your food would run out before you got money to buy more?: Never true Do you have trouble paying for medicines?: No Do you have trouble getting transportation to medical appointments?: No Do you have trouble paying your heating and electricity bill?: No Do you have trouble taking care of your child, family member or friend?: No Do you have trouble with day-to-day activities such as bathing, preparing meals, shopping, managing finances, etc.?: No Are you currently unemployed and looking for a job?: No Are you interested in more education?: No Please select the resources that you would like help with: None Currently or been in a relationship where the following occur: No concerns reported THRIVE Score: 0 AUDIT C Alcohol Use Questionnaire (AUDIT-C) 1. How often do you have a drink containing alcohol?: 2-4 times a month 2. How many drinks containing alcohol do you have on a typical day when you are drinking?: 1 or 2 3. How often do you have six or more drinks on one occasion?: Never Total Score: 2 Score Reviewed/Action Taken: Yes GRAYSON-7 AMB Questionnaire GRAYSON-7 Date GRAYSON - 7 assessed: 09/03/24 Feeling nervous, anxious, or on edge: 1 = Several days Not being able to stop or control worryin = Not at all Worrying too much about different things: 0 = Not at all Trouble relaxin = Several days Being so restless that it is hard to sit still: 0 = Not at all Becoming easily annoyed or irritable: 0 = Not at all Feeling afraid as if something awful might happen: 0 = Not at all Total GRAYSON-7 score (0-4 normal; 5-9 mild; 10-14 moderate; 15-21 severe): 2 Source: Developed by Drs. Addi Albright, Yaritza Johnson, Joseph Dey and colleagues, with an educational chris from [employer] GRAYSON-7 Assessment Billing GRAYSON-7 Assessment Tool: GRAYSON-7 Assessment 79593 Physical exam (Primary Care) Vital Signs: Last Vital Signs Temp 97.4 F 09/03/24 13:23 Pulse 58 09/03/24 13:23 Resp 13 09/03/24 13:23 BP 128/74 09/03/24 13:23 Pulse Ox 96 09/03/24 13:23 Oxygen Delivery Method Room Air 09/03/24 13:23 BMI result Body Mass Index 31.7 BMI Assessment/Plan discussion: High BMI High, discussed plan: lifestyle Tobacco/Smoking Status: Tobacco use Status Tobacco use date assessed 09/03/24 09/03/24 13:24 Patient Tobacco Use Status Never used Tobacco 09/03/24 13:24 e-Cigarette/Vaping Use Never Used 09/03/24 13:24 PHQ-9: PHQ-9 Score PHQ-9: Total score 0 09/03/24 13:30 Depression Screening Interpretation: Negative Thrive Assessment: Date of Thrive Assessment Date Thrive assessed 09/03/24 09/03/24 13:24 Currently or been in a relationship where the following occur: No concerns reported Coding Level of Care Code Est Pt Level 4 (04795) Est Pt Prev Care 40-64y(53529) Diagnoses Encounter for general adult medical examination with abnormal findings Z00.01 Mild episode of recurrent major depressive disorder F33.0 Major depression episode severity: mild Vitamin D deficiency E55.9 Seasonal allergies J30.2 Gastroesophageal reflux disease without esophagitis K21.9 Esophagitis presence: without esophagitis Normal colonoscopy Microscopic hematuria R31.29 Malignant neoplasm of lower-outer quadrant of right breast of female, estrogen receptor positive C50.511; Z17.0 Breast location: lower outer quadrant of breast Estrogen receptor status: positive Laterality: right Patient sex: female Vasculitis determined by biopsy of skin L95.9 JARAD positive R76.8 Elevated liver enzymes R74.8 Coronary artery disease involving [place] coronary artery of [place] heart without angina pectoris I25.10 Coronary Disease-Associated Artery/Lesion type: [place] artery [place] vs. transplanted heart: [place] heart Associated angina: without angina Hepatic steatosis K76.0 Additional Codes GRAYSON-7 Assessment Billing - GRAYSON-7 Assessment Tool: GRAYSON-7 Assessment 04730 ([id number]) PHQ-9 - 81207 - PHQ-9 Billing: Yes ([id number]) Assessment & Plan Assessment & Plan (1) Encounter for general adult medical examination with abnormal findings: Onset Date: ~09/03/24 Code(s): Z00.01 - Encounter for general adult medical examination with abnormal findings Category: Medical (2) MDD (major depressive disorder), recurrent episode: Code(s): F33.9 - Major depressive disorder, recurrent, unspecified Category: Medical Qualifiers: Major depression episode severity: mild Qualified Code(s): F33.0 - Major depressive disorder, recurrent, mild (3) Vitamin D deficiency: Comment: DEXA ordered. To be done in follow up 2024 at [facility]. Code(s): E55.9 - Vitamin D deficiency, unspecified Category: Medical (4) Seasonal allergies: Code(s): J30.2 - Other seasonal allergic rhinitis Category: Medical (5) Acid reflux: Comment: mild acid reflux. was taking famotidine 40 mg daily with excellent response previously, Could resume famotidine, continue with dietary modifications. al. She is a nonsmoker. She will follow-up as needed. We have encouraged her to call with questions or concerns. Code(s): K21.9 - Gastro-esophageal reflux disease without esophagitis Category: Medical Qualifiers: Esophagitis presence: without esophagitis Qualified Code(s): K21.9 - Gastro-esophageal reflux disease without esophagitis (6) Normal colonoscopy: Onset Date: 2019 Comment: Colonoscopy is normal, no polyps. Recommended to repeat 5 years due to history of breast cancer- per Dr. Aldana. Category: Medical (7) Microscopic hematuria: Comment: ct 08/2024 refer to [facility] [place] uro Code(s): R31.29 - Other microscopic hematuria Category: Medical (8) Breast cancer: Comment: right ductal carcinoma in situ lower outer quad/ER/[place] +, BRCA negative dx 01/2017, status post lumpectomy, completed radiation therapy 04/11/2017, completed tamoxifen therapy January 2022. Managed by [facility] Code(s): C50.919 - Malignant neoplasm of unspecified site of unspecified female breast Category: Medical Qualifiers: Breast location: lower outer quadrant of breast Estrogen receptor status: positive Laterality: right Patient sex: female Qualified Code(s): C50.511 - Malignant neoplasm of lower-outer quadrant of right female breast; Z17.0 - Estrogen receptor positive status [ER+] (9) Vasculitis determined by biopsy of skin: Comment: Leukoytoclastic Vasculitus Code(s): L95.9 - Vasculitis limited to the skin, unspecified Category: Medical (10) JARAD positive: Comment: 1:80 nucleolar 03/2023 Code(s): R76.8 - Other specified abnormal immunological findings in serum Category: Medical (11) Elevated liver enzymes: Code(s): R74.8 - Abnormal levels of other serum enzymes Category: Medical (12) CAD (coronary artery disease): Comment: noted on ct abd 08/2024 mild Code(s): I25.10 - Atherosclerotic heart disease of [place] coronary artery without angina pectoris Category: Medical Qualifiers: Coronary Disease-Associated Artery/Lesion type: [place] artery [place] vs. transplanted heart: [place] heart Associated angina: without angina Qualified Code(s): I25.10 - Atherosclerotic heart disease of [place] coronary artery without angina pectoris (13) Hepatic steatosis: Comment: noted on ct abd 08/2024 Code(s): K76.0 - Fatty (change of) liver, not elsewhere classified Category: Medical Plan . Orders: Orders Lipid Panel Today R74.8 - Abnormal levels of other serum enzymes TSH reflex Free T4 Today R74.8 - Abnormal levels of other serum enzymes Hemoglobin A1c Today R74.8 - Abnormal levels of other serum enzymes Vitamin D 25-OH Total Today R74.8 - Abnormal levels of other serum enzymes Comprehensive Met. Panel Today R74.8 - Abnormal levels of other serum enzymes Medications: New buspirone 15 mg PO BID 60 tabs 1RF Patient Instructions: Health screenings for women You should visit your health care provider from time to time, even if you are healthy. The purpose of these visits is to: Screen for medical issues Assess your risk for future medical problems Encourage a healthy lifestyle Update vaccinations and other preventive care services Help you get to know your provider in case of an illness Information Even if you feel fine, you should still see your provider for regular checkups. These visits can help you avoid problems in the future. For example, the only way to find out if you have high blood pressure is to have it checked regularly. High blood sugar and high cholesterol levels also may not have any symptoms in the early stages. A simple blood test can check for these conditions. There are specific times when you should see your provider or receive specific health screenings. The [place] Preventive Services Task Force publishes a list of re commended screenings. Below are screening guidelines for women ages 18 to 39. BLOOD PRESSURE SCREENING Your blood pressure should be checked at least once every 3 to 5 years if: Your blood pressure is in the normal range (top number less than 120 mm Hg and bottom number less than 80 mm Hg) You don't have risk factors for high blood pressure Ask your provider if you need your blood pressure checked more often if: The top number is 120 to 129 mm Hg or the bottom number is 70 to 79 mm Hg You have diabetes, heart disease, kidney problems, are overweight, or have certain other health conditions You have a first-degree relative with high blood pressure You are Black You had high blood pressure during a If the top number is 130 mm Hg or greater or the bottom number is 80 mm Hg or gr eater, this is considered stage 1 hypertension. Schedule an appointment with your provider to learn how you can reduce your blood pressure. Watch for blood pressure screenings in your area. Ask your provider if you can stop in to have your blood pressure checked. BREAST CANCER SCREENING Experts do not agree about the benefits of breast self-exams in finding breast cancer or saving lives. Talk to your provider about what is best for you. A screening mammogram is not recommended for most women under age 40. Your provider may discuss and recommend mammograms, MRI scans, or ultrasounds if you have an increased risk for breast cancer, such as: A mother or sister who had breast cancer at a young age (most often starting screening earlier than the age the close relative was diagnosed) You carry a high-risk genetic marker CERVICAL CANCER SCREENING Cervical cancer screening should start at age 21 years unless your provider advises otherwise. After the first test: Women ages 21 through 29 should have a Pap test every 3 years. Exoprts do not agree on whether HPV testing is recommended for this age group. Women ages 30 through 65 should be screened with either a Pap test every 3 years or the HPV test every 5 years or both tests every 5 years (called cotesting ). Women who have been treated for precancer (cervical dysplasia) should continue to have Pap tests for 20 years after treatment or until age 65, whichever is longer. If you have had your uterus and cervix removed (total hysterectomy), and you have not been diagnosed with cervical cancer or precancer (high grade cervical n eoplasia), you do not need cervical cancer screening. CHOLESTEROL SCREENING Cholesterol screening should begin at: Age 45 for women with no known risk factors for coronary heart disease Age 20 for women with known risk factors for coronary heart disease Repeat cholesterol screening should take place: Every 5 years for women with normal cholesterol levels More often if changes occur in lifestyle (including weight gain and diet) More often if you have diabetes, heart disease, kidney problems, or certain other conditions DIABETES SCREENING You should be screened for diabetes starting at age 35 and then repeated every 3 years if you have no risk factors for diabetes. Screening may need to start earlier and be repeated more often if you have other risk factors for diabetes, such as: You have a first degree relative with diabetes. You are overweight or have obesity. You have high blood pressure, prediabetes, or a history of heart disease. Screening for diabetes should be done if you are planning to become and you are overweight and have other risk factors such as high blood pressure. DENTAL EXAM Go to the dentist once or twice every year for an exam and cleaning. Your de ntist will evaluate if you need more frequent visits. EYE EXAM Have an eye exam every 5 to 10 years before age 40. If you have vision problems, have an eye exam every 2 years or more often if recommended by your provider. You should have an eye exam that includes an examination of your retina (back of your eye) at least every year if you have diabetes. IMMUNIZATIONS Commonly needed vaccines include: Flu shot: get one every year. COVID-19 vaccine: ask your provider what is best for you. Tetanus-diphtheria and acellular pertussis (Tdap) vaccine: have one at or after age 19 as one of your tetanus-diphtheria vaccines if you did not receive it as an adolescent. Tetanus-diphtheria: have a booster (or Tdap) every 10 years. Varicella vaccine: receive 2 doses if you never had chickenpox or the varicella vaccine. Hepatitis B vaccine: receive 2, 3, or 4 doses, depending on your exact circumstances. Measles, mumps, and rubella (MMR) vaccine: receive 1 to 2 doses if you are not already immune to MMR. Your provider can tell you if you are immune. Ask your provider about the human papillomavirus (HPV) vaccine if: You have not received the HPV vaccine in the past You have not completed the full vaccine series (you should catch up on this shot) Ask your provider if you should receive other immunizations if you have certain health problems that increase your risk for some diseases such as pneumonia. INFECTIOUS DISEASE SCREENING Women who are sexually active should be screened for chlamydia and gonorrhea up until age 25. Women 25 years and older should be screened for chlamydia and gonorrhea if at high risk. Screening for hepatitis C: All adults ages 18 to 79 should get a one-time test for hepatitis C. people should be screened at every . Screening for human immunodeficiency virus (HIV): All people ages 15 to 65 should get a one-time test for HIV. Depending on your lifestyle and medical history, you may also need to be screened for infections such as syphilis and HIV, as well as other infections. PHYSICAL EXAM All adults should visit their provider from time to time, even if they are healthy. The purpose of these visits is to: Screen for disease Assess your risk of future medical problems Encourage a healthy lifestyle Update your vaccinations and other preventive care services Maintain a relationship with a provider in case of an illness Your height, weight, and BMI should be checked at every exam. During your exam, your provider may ask you about: Depression and anxiety Diet and exercise Alcohol and tobacco use Safety issues, such as using seat belts, smoke detectors, and intimate partner violence Your medicines and risk for interactions SKIN SELF-EXAM Your provider may check your skin for signs of skin cancer, especially if you're at high risk, such as if you: Have had skin cancer before Have close relatives with skin cancer Have a weakened immune system OTHER SCREENING Talk with your provider about colon cancer screening if you have a strong family history of colon cancer or polyps, or if you have had inflammatory bowel disease or polyps yourself. Routine bone density screening of women under 40 is not recommended.
[2024-09-03 13:23] VITALS: BP 128/74; PULSE 58; RESP 13; TEMP 36.3; O2SAT 96; BMI 31.7
== END 2024-09-03 14:15 | disposition home or self-care (01) ==
LOC: HO.HMCFM 13:19
PROVIDERS: PCP Nurse Practitioner Family; Visit Provider Nurse Practitioner Family
DX: Z00.01 Encounter for general adult medical examination with abnormal findings (principal); J30.2 Other seasonal allergic rhinitis; C50.511 Malignant neoplasm of lower-outer quadrant of right female breast; F33.0 Major depressive disorder, recurrent, mild; E55.9 Vitamin D deficiency, unspecified; K21.9 Gastro-esophageal reflux disease without esophagitis; R31.29 Other microscopic hematuria; Z17.0 Estrogen receptor positive status [ER+]; L95.9 Vasculitis limited to the skin, unspecified; R76.8 Other specified abnormal immunological findings in serum; R74.8 Abnormal levels of other serum enzymes; I25.10 Atherosclerotic heart disease of native coronary artery without angina pectoris

== ENCOUNTER → 2024-09-03 13:18 | Outpatient (BNVA) | payer BC, SELFPAY | PROVIDERS: PCP Nurse Practitioner Family; Visit Provider Nurse Practitioner Family | DX: Z00.01 Encounter for general adult medical examination with abnormal findings (principal); F33.0 Major depressive disorder, recurrent, mild; E55.9 Vitamin D deficiency, unspecified; J30.2 Other seasonal allergic rhinitis; K21.9 Gastro-esophageal reflux disease without esophagitis; R31.29 Other microscopic hematuria; C50.511 Malignant neoplasm of lower-outer quadrant of right female breast; Z17.0 Estrogen receptor positive status [ER+]; L95.9 Vasculitis limited to the skin, unspecified; R76.8 Other specified abnormal immunological findings in serum; R74.8 Abnormal levels of other serum enzymes; I25.10 Atherosclerotic heart disease of native coronary artery without angina pectoris; K76.0 Fatty (change of) liver, not elsewhere classified; Z13.31 Encounter for screening for depression; Z13.39 Encounter for screening examination for other mental health and behavioral disorders | CPT/HCPCS: 96127 ==

== ENCOUNTER 2024-10-15 07:06 | Outpatient (REF) | payer BC, SELFPAY ==
--- OUTSIDE RECORDS SUMMARY | 2024-10-15 07:09 | XMS_ITS | Clinical Summary ---
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 Active ciprofloxacin HCl (CIPRO) 250 MG tablet Take 1 tablet (250 mg total) by mouth 2 (two) times a day. 6 tablet 05/26/2024 Active Active Problems Problem Noted Date Diagnosed Date Ductal carcinoma in situ (DCIS) of right breast 03/30/2023 Family history of breast cancer 03/30/2023 Class 1 obesity 03/30/2023 Immunizations Immunization Administration Dates Next Due Influenza Quadrivalent Preservative Free IM 11/22,11/11/2017 Influenza Quadrivalent w/ Preservative IM 2016 Tdap 01/16/2023,10/19/2017 Social History Tobacco Use Types Packs/Day Years Used Date Smoking Tobacco: Never Smokeless Tobacco: Never Tobacco Cessation:Counseling Given: Not Answered Education Answer Date Recorded Are you interested in more education? Not on elsa e 06/18/2022 Are you concerned about learning? Not on file 06/18/2022 No 06/18/2022 No 06/18/2022 Digital Access Answer Date Recorded No 07/17/2022 No 07/17/2022 Reliable internet access at home? Not on file 07/17/2022 Device with a working camera? Not on file Comments Unknown Sex and Gender Information Value Date Recorded Sex Assigned at Not on file Legal Sex Female 9:41 PM EDT Gender Identity Not on file Sexual Orientation Not on file Last Filed Vital Signs Vital Sign Reading Time Taken Comments Blood Pressure 127/80 05/24/2024 5:47 PM EDT Pulse 69 05/24/2024 5:47 PM EDT Temperature 36.8 C (98.3 F) 05/24/2024 5:47 PM EDT Respiratory Rate 16 05/24/2024 5:47 PM EDT Oxygen Saturation 98% 05/24/2024 5:47 PM EDT Inhaled Oxygen Concentration - - Weight 94.3 kg (208 lb) 2023 4:07 PM EST p er pt Height 170.2 cm (5' 7 ) 01/16/2023 9:59 AM EST Body Mass Index 32.58 01/16/2023 9:59 AM EST Plan of Treatment Health Maintenance Due Date Last Done Comments LIPID PANEL 1965 DEPRESSION SCREENING 1977 HEPATITIS C SCREENING 1983 PNEUMOCOCCAL VACCINES (50+ years) (1 of 2 - PCV) 02/11/1984 ZOSTER VACCINES (1 of 2) 02/11/1984 PAP SMEAR 1986 MAMMOGRAM 2005 COLOGUARD 2010 COLONOSCOPY 2010 COLORECTAL CANCER SCREENING 2010 FIT TEST 2010 FOBT 2010 SIGMOIDOSCOPY 2010 VIRTUAL COLONOSCOPY 2010 COVID-19 VACCINE (2 - 2023-2 5 season) 2023 04/16/2021 SCREENING FOR DIABETES 03/30/2026 03/30/2023 Adult Td,Tdap Booster 01/16/2033 01/16/2023 , 10/19/2017 HIV ONE-TIME SCREENING (18-6 5 YEARS) Completed 03/30/2023 SMOKING STATUS SCREENING (On ce After 26 Yrs) Completed 03/30/2023 HEPATITIS A VACCINES Aged Out No long er eligible based on patient's age to complete this topic HIB VACCINES Aged Out No longer eligi ble based on patient's age to complete this topic MENINGOCOCCAL VACCINES (ACWY) Aged Out No longer eligible based on patient's age to complete this topic MENINGOCOCCAL VACCINES (B) Aged Out N o longer eligible based on patient's age to complete this topic Medical Devices Not on file Insurance [facility] Care Teams Aix System Administrator Relationship Specialty Start Date End Date Reyna Garvin NP [address] [place] [phone] [email or web address] PCP - General Nurse Practitioner 03/23/24 Additional Source Comments The information contained in this document represents components of the legal health record. It is not the complete legal health record.[facility]
[2024-10-15 08:02] LABS: Hemoglobin A1C 131.2242 umol/L; Total Hemoglobin (HGBA1C) 3703.5319 umol/L
[2024-10-15 08:25] LABS: Alanine Aminotransferase 33 U/L (0-31); Albumin Level 4.3 g/dL (3.5-5.0); Anion Gap 13 (12-20); Aspartate Amino Transferase 30 U/L (5-31); Blood Urea Nitrogen 15 mg/dL (9-16); Calcium 9.6 mg/dL (8.4-10.2); Carbon Dioxide 27 mmol/L (22-29); Chloride 104 mmol/L (96-108); Cholesterol 188 mg/dL (<200); Estimated Glomerular Filt Rate > 60; HDL Cholesterol 48 mg/dL (>40); Potassium 4.9 mmol/L (3.3-5.1); Sodium 139 mmol/L (135-145); Total Protein 7.6 g/dL (6.5-8.0); Triglycerides 89 mg/dL (<150)
[2024-10-15 08:26] LABS: Alkaline Phosphatase 88 U/L (39-117)
== END 2024-10-15 07:07 | disposition home or self-care (01) ==
LOC: HO.LAB 07:06
PROVIDERS: PCP Nurse Practitioner Family; Visit Provider Nurse Practitioner Family
DX: Z13.1 Encounter for screening for diabetes mellitus (principal); R74.8 Abnormal levels of other serum enzymes
CPT/HCPCS: 36415; 80053; 80061; 82306; 83036; 84443

== ENCOUNTER 2024-10-17 15:02 | Outpatient (AMB) | payer BC, SELFPAY ==
--- NOTE | 2024-10-17 15:05 | A.OFFPC_ITS ---
Vital Signs 10/17/24 15:10 Height 5 ft 7 in Weight 203 lb 6 oz BMI 31.8 BP 124/72 Blood Pressure Location Lt brachial Position Sitting Respiration 12 Pulse 60 Pulse Source Pulse Oximeter Temp 97.2 F Temp Source Oral Pulse Oximetry (%) 96 Oxygen Delivery Method Room Air Intake Visit Reasons: 6 weeks 30 min fu labs/buspar Intake Note: Follow up to review labs [employer] Required: No Allergies No Known Allergies Allergy (Verified 10/17/24 15:06) Medication List - Last Reconciled 10/17/24 by Reyna Scott, [facility]- buspirone 15 mg PO BID calcium citrate 250 mg PO DAILY cholecalciferol (vitamin D3) (Vitamin D3) 25 mcg PO DAILY colchicine 0.6 mg PO BID fluticasone propionate 50 mcg/actuation 1 spray intranasal DAILY sodium,potassium,mag sulfates 17.5-3.13-1.6 gram (Suprep Bowel Prep Kit) 480 mL orally; FOR COLONOSCOPY PREP Tobacco use date assessed: 09/03/24 Dental Screening Dental Screen Date: 09/03/24 HPI HPI Comments History of Present Illness Details Gracie 59-year-old female breast cancer 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 in lower outer quadrant/ER/KS positive diagnosed January 2017 status post lumpectomy, completed radiation therapy 04/11/2017, completed tamoxifen therapy January 2022, Negative BRCA gene mutation 02/01/2017, GERD, MDD , seasonal allergies, vitamin-D deficiency, nonsystemic vasculitis, pilar cyst scalp, obesity, microscopic hematuria , hepatic steaotosis (ct 06/2024), CAD (ct 06/2024) Status post left knee surgery 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 Orthopedics Uro appt 10/24/24 Optho wears glasses Derm Health maintenance Colonoscopy 12/06/2019 normal, repeat in 5 years due to history of breast cancer (2024) Mammogram: L breast imaging/US completed w/ bx. This was normal. + calcification. Now needs mammos q 6 months, last done 08/2024; next 01/2025 and will also see breast specialist @ this time. DEXA done at [facility] Sep 2024, report pending Pap/HPV pap 02/2024 Vaccines - UTD advised to get Shingles vaccine, pending History of Present Illness - The patient is a 59-year-old female pr esenting for follow-up on lab results and management of anxiety. Taking Buspar 7.5mg QD, will increase to BID Working great Reviewed labs as below: Not taking CA+D routinely, will restart LFTs back to normal. Lipids increased; CAD noted on imaging. Reviewed Statin VS Marvel Bergamot in addition to lifestyle mods. She has joined gym. Eager to improve. Uro appt up is scheduled. Review of Systems - Psychiatric: Reports anxiety improveme nt with buspirone but occasional morning anxiety. - Gastrointestinal: Denies alcohol consu mption post one-week abstinence. Reports past liver enzyme elevation due to family events. - Musculoskeletal: Denies recent exercis e; reports decreased activity due to schedule. - Endocrine: Reports low vitamin D level s. - Cardiovascular: Denies knowledge of [facility] history heart attacks (siblings). - Family: Reports sister with non-alcoho l related liver disease. - Social: Reports recent dietary changes and lack of exercise due to visiting family. Physical Exam General: Well developed, well nourished, in no acute distress. Appears stated age. Head: Normocephalic, atraumatic. Eyes: Pupils are equal, round and reactive to light and accommodation. Conjunctivae are clear. Lungs: Clear to auscultation bilaterally. No rales, rhonchi or wheeze noted. Good air flow in all dave. Heart: Regular rate and rhythm. No murmurs, click, rubs or gallops are noted. Pulses: Peripheral pulses are equal and palpable bilaterally. Extremities: No clubbing, cyanosis nor edema is noted. Psych: Mood and affect appropriate. Results - Labs: AST 30 (normal), ALT 33 (slightl y elevated), bilirubin 0.9 (normal), LDL 123 mg/dL, HDL 48 mg/dL, vitamin D 28.7. - Imaging and diagnostics: Bone density results pending from [facility]. Discussion Notes During the visit, I discussed the management plan for the patient's generalized anxiety disorder, emphasizing continued use of buspirone at the current dosage and encouraging a three-times daily schedule if needed, ensuring adequate time between doses. I reviewed the normalization of her liver enzymes, attributing the previous elevation to acute lifestyle changes, and confirmed no concerns for ongoing liver issues given the recent lab results. I advised on lifestyle adjustments, focusing on resuming regular physical activity and improving dietary habits to manage hyperlipidemia. The potential use of Marvel Bergamot supplement for cholesterol management was introduced as an alternative, clarifying its safety and benefits. I outlined the risks of elevated LDL levels and stressed the importance of heart-health monitoring. We also reviewed her vitamin D deficiency and the benefits of consistent calcium supplement intake. The patient was encouraged to maintain her urology follow-up. Consent for the discussed plan and any future therapeutic interventions was implied. I reiterated plans for lab retesting in three months and ensured she understood the need for regular monitoring of her cholesterol and liver function. Patient was given time to ask questions. All questions were answered to their satisfaction. Assessment and Plan 1. Generalized Anxiety Disorder - Continue buspirone 7.5 mg QD-TID - Monitor symptoms. 2. Hyperlipidemia - Increase exercise and improve diet. - Start Marvel Bergamot 1000 mg QD. - Recheck lipids in three months. 3. Vitamin D Deficiency - Take calcium with vitamin D consistent ly. - Reassess vitamin D levels later. 4. Liver Function - Liver enzymes improved; continue routi ne monitoring. 5. Urology Follow-Up - Attend 10/24 appointment. 6. Bone Density/Mammo 2024 [facility] - Obtain results and evaluate. Consent Patient was informed and verbally consented to the use of an ambient scribe for clinic note documentation during this visit. Total time spent caring for the patient today was 43 minutes. This includes time spent before the visit reviewing the chart, time spent during the visit, and time spent after the visit on documentation, reviewing laboratory results, diagnostic imaging, medications, performing a medically necessary evaluation, counseling on diagnoses, care coordination, ordering appropriate tests, ordering appropriate medications, review of tests performed by other providers, reporting test results with the patient, communication with other healthcare providers. [facility] Medical History (Updated 10/18/24 @ 14:04 by RAMIREZ Parmar) Abnormal mammogram of left breast Breast cancer, right Encounter for general adult medical examination without abnormal findings History of mammogram (~08/2024) History of superficial phlebitis Moderate right ankle sprain Surgical History (Updated 09/03/24 @ 14:54 by RAMIREZ Parmar) H/O colonoscopy (~2019) H/O left knee surgery History of lumpectomy of right breast S/P breast biopsy, left Family History Mother Breast cancer Paternal Grandfather Heart problem Sister Cirrhosis of liver not due to alcohol Sister No problems noted. Sister No problems noted. Sister No problems noted. Sister Cirrhosis of liver not due to alcohol Daughter No problems noted. 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 Sexual orientation: Straight/Heterosexual Gender identity: Female Cognitive needs: No Hearing needs: No Vision needs: Yes (wears glasses) Female Reproductive History Menstrual Age of Menarche: 12 Questionnaire Thrive Questionnaire Date Thrive assessed: 09/03/24 I am a: Patient What is your living situation today?: I have a steady place to live Within the past 12 months, did the food you bought not last and you didn't have the money to get more?: Never true Within the past 12 months, did you worry whether your food would run out before you got money to buy more?: Never true Do you have trouble paying for medicines?: No Do you have trouble getting transportation to medical appointments?: No Do you have trouble paying your heating and electricity bill?: No Do you have trouble taking care of your child, family member or friend?: No Do you have trouble with day-to-day activities such as bathing, preparing meals, shopping, managing finances, etc.?: No Are you currently unemployed and looking for a job?: No Are you interested in more education?: No Please select the resources that you would like help with: None Currently or been in a relationship where the following occur: No concerns reported THRIVE Score: 0 GRAYSON-7 AMB Questionnaire GRAYSON-7 Date GRAYSON - 7 assessed: 09/03/24 Source: Developed by Drs. Addi Albright, Yaritza Johnson, Joseph Dey and colleagues, with an educational chris from [employer]. Physical exam (Primary Care) Vital Signs: Last Vital Signs Temp 97.2 F 10/17/24 15:10 Pulse 60 10/17/24 15:10 Resp 12 10/17/24 15:10 BP 124/72 10/17/24 15:10 Pulse Ox 96 10/17/24 15:10 Oxygen Delivery Method Room Air 10/17/24 15:10 BMI result Body Mass Index 31.8 Tobacco/Smoking Status: Tobacco use Status Tobacco use date assessed 09/03/24 10/17/24 15:06 Patient Tobacco Use Status Never used Tobacco 10/17/24 15:06 e-Cigarette/Vaping Use Never Used 10/17/24 15:06 Thrive Assessment: Date of Thrive Assessment Date Thrive assessed 09/03/24 10/17/24 15:06 Currently or been in a relationship where the following occur: No concerns reported Results Reviewed Results Reviewed: Laboratory 10/15/24 Result Units Range Interpretation Provider Comments Sodium Level 139 mmol/L (135-145) Potassium Level 4.9 mmol/L (3.3-5.1) Chloride Level 104 mmol/L (96-108) Carbon Dioxide Level 27 mmol/L (22-29) Anion Gap 13 (12-20) Blood Urea Nitrogen 15 mg/dL (9-16) Creatinine 0.93 mg/dL (0.5-1.4) Estimated Creatinine Clearance Calc Not Reportable Estimat Glomerular Filtration Rate > 60 Random Glucose 110 mg/dL (60-115) Estimated Average Glucose 108 mg/dL Hemoglobin A1c Percent 5.4 % (<6.0) Calcium Level 9.6 mg/dL (8.4-10.2) Total Bilirubin 0.9 mg/dL (0.0-1.0) Aspartate Amino Transf (AST/SGOT) 30 U/L (5-31) Alanine Aminotransferase (ALT/SGPT) 33 U/L (0-31) High Alkaline Phosphatase 88 U/L (39-117) Total Protein 7.6 g/dL (6.5-8.0) Albumin 4.3 g/dL (3.5-5.0) Triglycerides Level 89 mg/dL (<150) Cholesterol Level 188 mg/dL (<200) LDL Cholesterol, Calculated 123 mg/dL (<100) High HDL Cholesterol 48 mg/dL (>40) 25-Hydroxy Vitamin D Total 28.7 ng/mL (>30) Low Thyroid Stimulating Hormone (TSH) 3.64 uIU/mL (0.32-4.0) Coding Level of Care Code Est Pt Level 5 (17407) Complex EM visit Add On G2211 Diagnoses Vitamin D deficiency E55.9 Elevated liver enzymes R74.8 Hepatic steatosis K76.0 Normal colonoscopy Microscopic hematuria R31.29 Coronary artery disease involving [place] coronary artery of [place] heart without angina pectoris I25.10 Associated angina: without angina Coronary Disease-Associated Artery/Lesion type: [place] artery [place] vs. transplanted heart: [place] heart GRAYSON (generalized anxiety disorder) F41.1 Mild episode of recurrent major depressive disorder F33.0 Major depression episode severity: mild Assessment & Plan Assessment & Plan (1) Vitamin D deficiency: Comment: DEXA ordered. done in follow up 2024 at [facility]. Code(s): E55.9 - Vitamin D deficiency, unspecified Category: Medical (2) Elevated liver enzymes: Code(s): R74.8 - Abnormal levels of other serum enzymes Category: Medical (3) Hepatic steatosis: Comment: noted on ct abd 08/2024 Code(s): K76.0 - Fatty (change of) liver, not elsewhere classified Category: Medical (4) Normal colonoscopy: Onset Date: 2019 Comment: Colonoscopy is normal, no polyps. Recommended to repeat 5 years due to history of breast cancer- per Dr. Aldana. Category: Medical (5) Microscopic hematuria: Comment: ct 08/2024 refer to [facility] uro Code(s): R31.29 - Other microscopic hematuria Category: Medical (6) CAD (coronary artery disease): Comment: noted on ct abd 08/2024 mild Code(s): I25.10 - Atherosclerotic heart disease of [place] coronary artery without angina pectoris Category: Medical Qualifiers: Associated angina: without angina Coronary Disease-Associated Artery/Lesion type: [place] artery [place] vs. transplanted heart: [place] heart Qualified Code(s): I25.10 - Atherosclerotic heart disease of [place] coronary artery without angina pectoris (7) GRAYSON (generalized anxiety disorder): Code(s): F41.1 - Generalized anxiety disorder Category: Medical (8) MDD (major depressive disorder), recurrent episode: Code(s): F33.9 - Major depressive disorder, recurrent, unspecified Category: Medical Qualifiers: Major depression episode severity: mild Qualified Code(s): F33.0 - Major depressive disorder, recurrent, mild Plan . Orders: Orders Lipid Panel 3 Months E55.9 - Vitamin D deficiency, unspecified, I25.10 - Atherosclerotic heart disease of [place] coronary artery without angina pectoris Comprehensive Met. Panel 10/17/24 E55.9 - Vitamin D deficiency, unspecified, I25.10 - Atherosclerotic heart disease of [place] coronary artery without angina pectoris Vitamin D 25-OH Total 10/17/24 E55.9 - Vitamin D deficiency, unspecified, I25.10 - Atherosclerotic heart disease of [place] coronary artery without angina pectoris Patient Instructions: Marvel Bergamot 1000mg take once per day get online.
[2024-10-17 15:10] VITALS: BP 124/72; PULSE 60; RESP 12; TEMP 36.2; O2SAT 96; BMI 31.8
--- OUTSIDE RECORDS SUMMARY | 2024-10-17 16:21 | XMS_ITS | Clinical Summary ---
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 Care Teams Braker Passenger Train Relationship Specialty Start Date End Date Reyna Garvin NP [address] [place] [phone] [email or web address] PCP - General Nurse Practitioner 03/23/24 Additional Source Comments The information contained in this document represents components of the legal health record. It is not the complete legal health record.[facility]
== END 2024-10-17 15:46 | disposition home or self-care (01) ==
LOC: HO.HMCFM 15:03
PROVIDERS: PCP Nurse Practitioner Family; Visit Provider Nurse Practitioner Family
DX: R74.8 Abnormal levels of other serum enzymes (principal); E55.9 Vitamin D deficiency, unspecified; K76.0 Fatty (change of) liver, not elsewhere classified; R31.29 Other microscopic hematuria; I25.10 Atherosclerotic heart disease of native coronary artery without angina pectoris; F41.1 Generalized anxiety disorder; F33.0 Major depressive disorder, recurrent, mild

== ENCOUNTER 2024-10-24 08:51 | Outpatient (REF) | payer BC, SELFPAY ==
--- OUTSIDE RECORDS SUMMARY | 2024-10-24 18:04 | XMS_ITS | Clinical Summary ---
Author Organization [facility] Address [address] [facility] [address] [place] [phone] Phone Care Team Providers Care Health Care Liaison Name Role Phone Reyna Garvin CENTRAL SERVICE TECH Primary Care Provider Allergies No known active [...] topic Medical Devices Not on file Insurance [facility] Subscriber Plan / Payer (Ef fective 2009-Present) Name:Patty Adamson Relation to Subscriber:Spouse Name:NED ADAMSON Date of :1900 (Home) Address: [address] [place] [address] Payer ID:[id number] (NAIC) Group ID:[id number] Type:PPO Address: [facility] [id number] [place] [id number] [employer] [facility] Care Teams Health Care Liaison Relationship Specialty Start Date End Date Reyna Garvin NP [address] [place] [phone] [email or web address] PCP - General Nurse Practitioner 03/23/24 Additional Source Comments The information contained in this document represents components of the legal health record. It is not the complete legal health record.[facility]
== END 2024-10-24 08:52 | disposition home or self-care (01) ==
LOC: HO.LNP 08:51
PROVIDERS: PCP Nurse Practitioner Family; Visit Provider Nurse Practitioner Family
DX: N39.0 Urinary tract infection, site not specified (principal); R31.29 Other microscopic hematuria; Z13.89 Encounter for screening for other disorder
CPT/HCPCS: 51798; 81003; 88112

== ENCOUNTER 2024-10-24 08:51 | Outpatient (AMB) | payer BC, SELFPAY ==
--- NOTE | 2024-10-24 08:53 | A.OFFVIS_ITS ---
Intake Visit Reasons: microscopic hematuria Intake Note: patient presents today for: new pt microscopic hemturia urology medications: none blood thinners: none today's PVR: 8mls Land Surveyor Required: No Accompanied by: Self / Same As Patient Allergies No Known Allergies Allergy (Verified 10/24/24 10:03) Medication List - Last Reconciled 10/24/24 by LYNN Stevens-MARK buspirone 15 mg PO BID calcium citrate 250 mg PO DAILY cholecalciferol (vitamin D3) (Vitamin D3) 25 mcg PO DAILY colchicine 0.6 mg PO BID fluticasone propionate 50 mcg/actuation 1 spray intranasal DAILY sodium,potassium,mag sulfates 17.5-3.13-1.6 gram (Suprep Bowel Prep Kit) 480 mL orally; FOR COLONOSCOPY PREP HPI Comments Details: Patty Pisano Is a very pleasant 59-year-old female patient of Dr. Scott. She has a past medical history of right-sided breast cancer. She presents to the office today as a new patient for microscopic hematuria. In discussion with the patient today she reports having had a urinary tract infection earlier this year at which time she seeked urgent care services and was prescribed to different antibiotic therapies however upon completion cont inued with UTI like symptoms and recommendation was made for follow-up with information assurance specialist. She reports having followed up with her information assurance specialist here at [place] at which time she was not found to have a urinary tract infection however she was noted to have microscopic hematuria. Upon re-collection of urinalysis she was noted again to have microscopic hematuria and a CT urogram was ordered for further assessment evaluation and recommendations were made for urology referral. CT results were reviewed 07/15 no urinary tract stone or obstruction. Mild distention of the bladder. In office urinalysis results today notes no microscopic hematuria. We did discussed at length potential causes of microscopic hematuria as well as urinary tract infections. She denies any previous history of nicotine dependence and or workplace chemical exposure. She does report a history of stress incontinence after childbirth however does not find this bothersome at this time. She otherwise denies urinary urgency, urinary frequency, incontinence, nocturia, hematuria, dysuria, foul smelling urine, changes to urinary stream, flank pain, fever, and or chills. She is happy with her current voiding parameters. All questions were answered. She otherwise offers no other issues or concerns at this time. [facility] Medical History History of mammogram (~08/2024) Abnormal mammogram of left breast Moderate right ankle sprain Encounter for general adult medical examination without abnormal findings History of superficial phlebitis Breast cancer, right Surgical History (Updated 09/03/24 @ 14:54 by Reyna Scott [facility]) H/O colonoscopy (~2019) S/P breast biopsy, left History of lumpectomy of right breast H/O left knee surgery Family History Mother Breast cancer Paternal Grandfather Heart problem Sister Cirrhosis of liver not due to alcohol Sister No problems noted. Sister No problems noted. Sister No problems noted. Sister Cirrhosis of liver not due to alcohol Daughter No problems noted. 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 Sexual orientation: Straight/Heterosexual Gender identity: Female Cognitive needs: No Hearing needs: No Vision needs: Yes (wears glasses) Female Reproductive History Menstrual Age of Menarche: 12 Review of Systems Const All systems reviewed & are unremarkable except as noted in HPI and below Physical Exam Const General: cooperative, healthy appearing, comfortable, no acute distress, well developed, alert and awake Orientation/consciousness: patient oriented x3 Limitations: no limitations HEENT Head: Yes normal to inspection, Yes normocephalic and Yes atraumatic Ears: hearing grossly normal bilaterally Eyes General: appearance normal, both eyes and all related structures Neck Neck: Yes normal visual inspection and Yes trachea midline Chest Chest palpation & inspection: normal inspection of the chest Resp Effort & Inspection: normal respiratory effort and able to speak in complete sen tences Cardio Rate: regular rate GI Inspection: Yes normal to inspection General: Yes no CVA tenderness Back/Spine/Pelvis Back: no CVA tenderness Skin General skin exam: no rashes or lesions noted Neuro General: patient oriented x3 Extrem General: Yes normal to inspection Psych Appearance: grossly normal and well kempt Mental Status: mental status grossly normal Speech and movement: Normal speech and movement present and Clear speech present Affect: normal affect Attitude: cooperative Thought process: Normal thought process present Thought content: Normal thought content present Insight: Fair insight present (Psych) Judgement: Fair judgement present (Psych) Office Procedures Post Void Residual Post Residual Void Post Void Residual (PVR): 8 [id number] Void Residual by ultrasound Results AMB Urinalysis, Automated UA Leukoctes 0 Deangelo/uL Last Edit by SIMIN Lobato on 10/24/24 09:08 UA Nitrite Negative Last Edit by SIMIN Lobato on 10/24/24 09:08 UA Urobilinogen 3.5 mg/dL Last Edit by SIMIN Lobato on 10/24/24 09:0 8 UA Protein 0 mg/dL Last Edit by SIMIN Lobato on 10/24/24 09:08 UA pH 6.5 Last Edit by SIMIN Lobato on 10/24/24 09:08 UA Blood 0 Jatinder/uL Last Edit by SIMIN Lobato on 10/24/24 09:08 UA Specific [place] 1.015 Last Edit by SIMIN Lobato on 10/24/24 09: 08 UA Ketone Negative Last Edit by SIMIN Lobato on 10/24/24 09:08 UA Bilirubin 0 mg/dL Last Edit by SIMIN Lobato on 10/24/24 09:08 UA Glucose 0 mg/dL Last Edit by SIMIN Lobato on 10/24/24 09:08 Results Reviewed Results Reviewed: Laboratory Last Values Urine pH (Auto) 6.5 10/24/24 09:08 Specific [place] (Auto) 1.015 10/24/24 09:08 Urine Protein (Auto) 0 mg/dL 10/24/24 09:08 Glucose (UA)(Auto) 0 mg/dL 10/24/24 09:08 Urine Ketones (Auto) Negative 10/24/24 09:08 Urine Blood (Auto) 0 Jatinder/uL 10/24/24 09:08 Urine Nitrite (Auto) Negative 10/24/24 09:08 Urine Bilirubin (Auto) 0 mg/dL 10/24/24 09:08 Urine Urobilinogen (Auto) 3.5 mg/dL 10/24/24 09:08 Leukocyte Esterase (Auto) 0 Deangelo/uL 10/24/24 09:08 Date of Service: 07/17/24 Procedure(s): CT abdomen pelvis wo/w IV con Findings: No consolidation at the lung bases. Mild amount of subsegmental atelectasis versus linear scarring. Unremarkable gallbladder. Hepatic steatosis. No hydronephrosis or nephrolithiasis. The kidneys enhance normally and excrete contrast symmetrically. Distended bladder, measuring up to 14.4 cm in craniocaudal dimension. No bladder stone. The other solid organs are unremarkable. No bowel wall thickening or dilation. A normal appendix is identified. No aneurysm. Mild calcified atherosclerotic disease. No lymphadenopathy. No ascites. No acute osseous abnormality. Impression: No urinary tract stone or obstruction. Mild distention of the bladder. Assessment & Plan Assessment & Plan (1) Microscopic hematuria: Comment: [place] 08/2024 [place] [facility] [place] Code(s): R31.29 - Other microscopic hematuria Category: Medical Plan In office urinalysis results with the patient today; as noted above; will send for urine cytology. We discussed potential causes of microscopic hematuria. Recent CT urogram results reviewed with the patient today; as noted above. We discussed further treatment options of stress incontinence however will continue with surveillance monitoring as patient does not find this bothersome issue at this time. All questions were answered. We did discussed healthy bathroom behaviors. We discussed importance of adequate hydration. All questions were answered. She currently denies any bothersome urinary issues. She reports be happy with current voiding parameters. Will continue with surveillance monitoring. Follow-up in 3 months; or sooner with any issues, concerns, and or questions. Orders: Orders AMB Post Void Residual by ultrasound Today R31.29 - Other microscopic hematuria Urine Cytology Today N39.0 - Urinary tract infection, site not specified AMB Urinalysis Automated Today Z13.9 - Encounter for screening, unspecified Patient Instructions: The patient had an opportunity to ask questions regarding the treatment plan. All questions were answered. Physical exam, labs, and imaging were discussed and reviewed in detail. As well as risks, benefits, and discussion of treatment choices. No major barriers to understanding were identified. The patient expressed understanding and agreement with the above treatment plan. The patient was made aware they should contact our office by phone for worsening of their current condition, the appearance of new symptoms, or with any questions or concerns. Compliance is encouraged with any medications and follow up testing that is ordered. It is a privilege to be allowed the opportunity to participate in? your urological care.? Again, if you have any questions or concerns If you have any questions or concerns please do not hesitate to contact me. The office is [phone]. This note is constructed using voice recognition software. While every effort has been made to ensure accuracy farm general manager errors may have been included. Yours sincerely, LYNN Stevens-MARK Coding Level of Care Code New Pt Level 3 (35832) Diagnoses Microscopic hematuria R31.29 CPT Codes Post Residual Void - PVR CPT Code: [id number] Void Residual by ultrasound ([id number])
--- OUTSIDE RECORDS SUMMARY | 2024-10-24 09:22 | XMS_ITS | Clinical Summary ---
Author Organization [facility] Address [address] [facility] [address] [place] [phone] Phone Care Team Providers Care Laboratory Mechanical Technician Name Role Phone Reyna Garvin WELFARE INTERVIEWER Primary Care Provider Allergies No known active [...] FOBT 2010 SIGMOIDOSCOPY 2010 VIRTUAL COLONOSCOPY 2010 INFLUENZA VACCINE (#1) 2024 , 11/11/2017, 11/22/2016 COVID-19 VACCINE (2 - 2024-2 6 season) 2024 04/16/2021 SCREENING FOR DIABETES 03/30/2026 03/30/2023 Adult [...] topic Medical Devices Not on file Insurance [facility] Subscriber Plan / Payer (Ef fective 2009-Present) Name:Patty Adamson Relation to Subscriber:Spouse Name:NED ADAMSON Date of :1900 (Home) Address: [address] [place] [address] Payer ID:[id number] (NAIC) Group ID:[id number] Type:PPO Address: [facility] [id number] [place] [id number] [employer] [facility] Care Teams Laboratory Mechanical Technician Relationship Specialty Start Date End Date Reyna Garvin NP [address] [place] [phone] [email or web address] PCP - General Nurse Practitioner 03/23/24 Additional Source Comments The information contained in this document represents components of the legal health record. It is not the complete legal health record.[facility]
== END 2024-10-24 09:51 | disposition home or self-care (01) ==
LOC: HO.HUSH 08:52
PROVIDERS: PCP Nurse Practitioner Family; Visit Provider Nurse Practitioner Family
DX: R31.29 Other microscopic hematuria (principal); Z13.9 Encounter for screening, unspecified
CPT/HCPCS: 99203

== ENCOUNTER 2025-01-10 07:57 | Outpatient (REF) | payer BC, SELFPAY ==
--- OUTSIDE RECORDS SUMMARY | 2025-01-10 08:11 | XMS_ITS | Clinical Summary ---
Author Organization [facility] Address [address] [phone] Phone Care Team Providers Care Global Upstream Marketing Manager Name Role Phone Reyna Garvin SUCTION PLATE ROLLER HAND Primary Care Provider Allergies No known active allergies Medications calcium citrate-vitamin D3 315 mg- 250 unit per tablet Take 1 tablet by mouth daily. Active ciprofloxacin HCl (CIPRO) 250 MG tablet Take 1 tablet (250 mg total) by mouth 2 (two) times a day. 6 tablet 5 Active Additional Information Patient not taking.Reported on 12/19/2024 busPIRone (BUSPAR) 15 MG tabletIndication s:Fever, unspecified 5 Active Active Problems Problem Noted Date Diagnosed Date Ductal carcinoma in situ (DCIS) of right breast 03/30/2023 Family history of breast cancer 03/30/2023 Class 1 obesity 03/30/2023 Encounters Date Type Department Care Team Description 12/19/2024 12:40 PM EDT Office Visit [facility] [address] [address] Shelli Franco CNP Fever, unspecified (Primary Dx); Acute intractable headache, unspecified headache type from Last 3 Months Immunizations Immunization Administration Dates Next Due Influenza [...] Sign Reading Time Taken Comments Blood Pressure 138/87 12/19/2024 12:32 PM EDT Pulse 66 12/19/2024 12:32 PM EDT Temperature 37.8 C (100 F) 12/19/2024 12:32 PM EDT Respiratory Rate 18 12/19/2024 12:32 PM EDT Oxygen Saturation 98% 12/19/2024 12:32 PM EDT Inhaled Oxygen Concentration - - [...] Adult Td,Tdap Booster 01/16/2033 01/16/2023 , 10/19/2017 RSV VACCINE (1 - 1-dose 75+ series) 02/11/2040 HIV ONE-TIME SCREENING (18-6 5 YEARS) Completed 03/30/2023 SMOKING STATUS SCREENING (On ce After 26 Yrs) Completed 12/19/2024 HEPATITIS A VACCINES Aged Out No long [...] this topic Medical Devices Not on file Procedures Procedure Name Priority Date/Time Associated Diagnosis Comments POCT COVID-19 RT-PCR/INFLUENZA A & B/RSV CEPHEID Routine 12/19/2024 12:36 PM EDT Fever, unspecified from Last 3 Months Results * POCT COVID-19 RT-PCR/Influenza A & B/RSV (Cepheid) (12/19/2024 12:36 PM EDT) [facility] RSV PCR Negative Negative [facility] SARS-CoV-2 (COVID-19) Negative Negative [facility] Influenza A PCR Negative Negative [facility] Influenza B PCR Negative Negative [facility] 12/19/2024 12:3 6 PM EDT 12/19/2024 1:16 PM EDT Shelli Franco SERVICE PROMOTER SALESPERSON LAB POCT ENTER/EDIT ORDERAB LES Final Result [facility] [address] [address], [facility] [phone] from Last [address] [facility] Care Teams Global Upstream Marketing Manager Relationship Specialty Start Date End Date Reyna Garvin NP [address] [place] [phone] [email or web address] PCP - General Nurse Practitioner 03/23/24 Additional Source Comments The information contained in this document represents components of the legal health record. It is not the complete legal health record.[facility]
[2025-01-10 08:49] LABS: Alanine Aminotransferase 33 U/L (0-31); Albumin Level 4.2 g/dL (3.5-5.0); Alkaline Phosphatase 75 U/L (39-117); Anion Gap 11 (12-20); Aspartate Amino Transferase 35 U/L (5-31); Blood Urea Nitrogen 14 mg/dL (9-16); Calcium 9.6 mg/dL (8.4-10.2); Carbon Dioxide 29 mmol/L (22-29); Chloride 106 mmol/L (96-108); Cholesterol 174 mg/dL (<200); Estimated Glomerular Filt Rate > 60; HDL Cholesterol 50 mg/dL (>40); Potassium 4.6 mmol/L (3.3-5.1); Sodium 141 mmol/L (135-145); Total Protein 7.5 g/dL (6.5-8.0); Triglycerides 84 mg/dL (<150)
== END 2025-01-10 07:58 | disposition home or self-care (01) ==
LOC: HO.LAB 07:57
PROVIDERS: PCP Nurse Practitioner Family; Visit Provider Nurse Practitioner Family
DX: I25.10 Atherosclerotic heart disease of native coronary artery without angina pectoris (principal); E55.9 Vitamin D deficiency, unspecified
CPT/HCPCS: 36415; 80053; 80061; 82306

== ENCOUNTER 2025-01-16 08:26 | Outpatient (AMB) | payer BC, SELFPAY ==
--- NOTE | 2025-01-16 08:29 | MHC.PC.OV ---
Vital Signs 01/16/25 08:33 Height 5 ft 7 in Weight 201 lb 8 oz BMI 31.6 BP 118/70 Blood Pressure Location Lt brachial Position Sitting Respiration 12 Pulse 97 Pulse Source Pulse Oximeter Temp 97.2 F Temp Source Oral Pulse Oximetry (%) 95 Oxygen Delivery Method Room Air Intake Visit Reasons: 3 mo 30 min labs 1 week before Chol/routine fu Intake Note: Follow up to review labs. Patient had covid in the end of November and she feels like sge is still not better and also c/o right ear discomrt x 2 days. 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: No Allergies No Known Allergies Allergy (Verified 01/16/25 08:59) Medication List - Last Reconciled 01/16/25 by Reyna Scott, LOW VISION THERAPIST- buspirone 15 mg PO BID calcium citrate 250 mg PO DAILY cholecalciferol (vitamin D3) (Vitamin D3) 25 mcg PO DAILY colchicine 0.6 mg PO BID fluticasone propionate 50 mcg/actuation 1 spray intranasal DAILY sodium,potassium,mag sulfates 17.5-3.13-1.6 gram (Suprep Bowel Prep Kit) 480 mL orally; FOR COLONOSCOPY PREP Tobacco use date assessed: 01/16/25 Dental Screening Dental Screen Date: 01/16/25 Did you have a dental visit in the last 12 months?: Yes Did you have a dental problem in the last 6 months where you did not have access to dental care?: No Was dental information given to patient?: Patient has dentist HPI HPI Comments History of Present Illness Details Gracie 59-year-old female breast cancer 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 in lower outer quadrant/ER/TX positive diagnosed January 2017 status post lumpectomy, completed radiation therapy 04/11/2017, completed tamoxifen therapy January 2022, Negative BRCA gene mutation 02/01/2017, GERD, MDD , seasonal allergies, vitamin-D deficiency, nonsystemic vasculitis, pilar cyst scalp, obesity, microscopic hematuria , hepatic steaotosis (ct 06/2024), CAD (ct 06/2024) Status post left knee surgery 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 This was normal. + calcification. Now needs mammos q 6 months, last done 08/2024; next 01/2025 and will also see breast specialist @ this time. DEXA done at [facility] Sep 2024, report pending Pap/HPV pap 02/2024 Vaccines - UTD advised to get Shingles vaccine, pending, Flu 11/2024 History of Present Illness The patient is a 59 year old individual presenting for a routine chronic disease management visit. Post-COVID Cough: - The patient contracted COVID-19 in the last week of November and has had a persistent dry cough since. - The cough is exacerbated by exertion and exposure to cold air. - Initial post-COVID symptoms included mental fogginess and exhaustion, which have mostly resolved. - The patient did not receive any specific treatment, such as Paxlovid, for the infection. Hypercholesterolemia: - The patient has been taking Earle bergamot as advised at a previous visit to manage cholesterol. - Recent lab results from January 10 showed an improvement, with total cholesterol decreasing from 188 to 174, LDL from 123 to 108, and HDL increasing from 48 to 50. Vitamin D Deficiency: - The patient has a history of vitamin D deficiency and was previously advised to take vitamin D. - The patient reports taking a vitamin D3 supplement after having cancer but stopped after reaching the five-year moose, switching to a calcium-only supplement. - Recent lab results showed a drop in the patient's vitamin D level. Anxiety: - The patient takes buspirone as needed for anxiety, which has recently been exacerbated by increased stress at work and family life changes related to the holidays and children growing up. - The patient reports occasionally taking a whole tablet instead of the usual half, but not on a regular basis. Health Maintenance: - The patient has a history of breast cancer treated with radiation and is followed by an oncologist. - A bone density scan was performed over the summer, but results have not yet been received. - The patient is due for a screening mammogram this month. - The patient has joined a weight management program offered through insurance. Past Medical History - History of breast cancer, status post radiation therapy. - Hypercholesterolemia. - Vitamin D deficiency. - Anxiety. - COVID-19 infection in November. - Influenza vaccination prior to COVID-19 diagnosis. Review of Systems - GENERAL: Reports prior fatigue and mental fogginess post-COVID, which have since resolved. Denies fever. - RESPIRATORY: Reports a persistent, dry, non-productive cough, which is exacerbated by exertion and cold air. - ENT: Reports a feeling of pressure in one ear and feeling a little congested. Denies sinus pain. - NEUROLOGICAL: Denies current headache. - PSYCHIATRIC: Reports increased anxiety and stress related to work and family events. - GASTROINTESTINAL: Reports discomfort on one side of the abdomen when sitting for a long time, describing it as uncomfortable but not painful. Physical Exam General: Well developed, well nourished, in no acute distress. Appears stated age. Head: Normocephalic, atraumatic. Eyes: Pupils are equal, round and reactive to light and accommodation. Conjunctivae are clear. Vision grossly normal. Scleras nonicteric bilat Ears: TM intact bilat, mild erythema and injection R TM Nose: Nares patent, sinuses nontender Lungs: Exp wheeze [place] , dry cough w/o distress,otherwise clear Heart: Regular rate and rhythm. No murmurs, click, rubs or gallops are noted. Abdomen: Bowel sounds present in all quadrants. The abdomen is soft, nontender, with no masses or organomegaly noted. No hernias are noted. Musculoskeletal: Joints are nontender, without swelling, redness, or effusions. Pulses: Peripheral pulses are equal and palpable bilaterally. Extremities: No clubbing, cyanosis nor edema is noted. Psych: Mood and affect appropriate, though reports some stress related to family changes and holidays. Results - Labs (from January 10): - Comprehensive Metabolic Panel: Electrolytes and kidney function were normal. Glucose was normal. Calcium was 9.6. Liver enzymes showed a mild bump with AST of 35 and ALT of 33 (normal <=1). Alkaline phosphatase and bilirubin were normal. - Lipid Panel: Total cholesterol improved to 174 from 188. LDL decreased to 108 from 123. HDL increased to 50 from 48. - Vitamin D: Level has dropped. - Imaging: - Bone Density Scan: Report is pending from a study performed in the summer. - Other diagnostics: - Urinalysis: A dipstick test performed previously at a urology visit was negative. Medical Decision Making The patient is a 59-year-old individual here for chronic disease management. The most pressing new issue is a persistent dry cough that began after a COVID-19 infection in late November. Although the patient mentioned long COVID, the clinical presentation and auscultation findings of some noise in the lungs are more suggestive of a secondary bacterial bronchitis. Therefore, I am prescribing a course of azithromycin. If the cough does not improve after treatment, chest imaging will be considered. Regarding chronic conditions, the patient's hypercholesterolemia has shown excellent response to Earle bergamot, with improved LDL, HDL, and total cholesterol levels. We will continue this supplement rather than initiating a prescription statin. The recent drop in vitamin D is explained by the patient's non-adherence to D3 supplementation, having switched to a calcium-only supplement. I will prescribe vitamin D3 2000 units to be taken daily. Lab work showed a minor, clinically insignificant elevation in liver enzymes, which may be related to Motrin use during the COVID illness and does not require immediate action. The patient's anxiety is managed with as-needed buspirone, and no changes are needed. We will follow up with repeat labs, including a lipid panel, CMP, and vitamin D level, in 3-4 months to monitor these conditions. I will also re-request the pending bone density scan report. Plan 1. Post-Covid Cough - A secondary bacterial infection is suspected following the patient's recent COVID-19 illness. - Prescribed azithromycin (Z-Oscar) 5-day course, two tablets on day one and one tablet daily thereafter. - The patient was advised that a post-viral cough can last up to six weeks but should show improvement. - If the cough does not improve, the patient should follow up, and chest imaging will be considered. 2. Hypercholesterolemia - The patient has shown significant improvement in cholesterol levels with the use of Earle bergamot. - The patient will continue taking the [id number] supplement. - A repeat lipid panel will be ordered in 3-4 months. 3. Vitamin D Deficiency - The patient's vitamin D level has dropped, consistent with stopping D3 supplementation. - Prescribed Vitamin D3 2000 units to be taken daily. - The patient will continue taking the current calcium supplement. - The vitamin D level will be rechecked in 3-4 months. 4. Anxiety - The patient is stable on as-needed buspirone for anxiety management. - No refills are needed at this time. 5. Health Maintenance - Labs: Repeat lipid panel and CMP in 3-4 months. - Mammogram: The patient is due for a screening mammogram this month. - Bone Density: An attempt will be made to obtain the report from the patient's recent DEXA scan. - Follow-up: The patient will schedule the next appointment at the front end web developer for the lab recheck in 3-4 months. Patient Instructions - Take the Azithromycin (Z-Oscar) prescription for your cough. Take two pills on the first day, and then one pill each day until the 5-day course is finished. - If your cough does not get better after finishing the antibiotic, please contact our office. - Start taking Vitamin D3 2000 units once per day. This is a new prescription. - Continue taking your calcium supplement and the [id number] Earle bergamot for cholesterol. - Continue taking buspirone as needed for anxiety. - Proceed with your scheduled mammogram this month. - Please stop at the front end web developer to make your next appointment for about 3-4 months from now to have your labs rechecked. Consent Patient was informed and verbally consented to the use of an ambient scribe for clinic note documentation during this visit. Total time spent caring for the patient today was 40 minutes. This includes time spent before the visit reviewing the chart, time spent during the visit, and time spent after the visit on documentation, reviewing laboratory results, diagnostic imaging, medications, performing a medically necessary evaluation, counseling on diagnoses, care coordination, ordering appropriate tests, ordering appropriate medications, review of tests performed by other providers, reporting test results with the patient, communication with other healthcare providers. [facility] Medical History History of mammogram (~08/2024) Abnormal mammogram of left breast Moderate right ankle sprain Encounter for general adult medical examination without abnormal findings History of superficial phlebitis Breast cancer, right Surgical History (Updated 09/03/24 @ 14:54 by Reyna Scott, [facility]) H/O colonoscopy (~2019) H/O left knee surgery History of lumpectomy of right breast S/P breast biopsy, left Family History Mother Breast cancer Paternal Grandfather Heart problem Sister Cirrhosis of liver not due to alcohol Sister No problems noted. Sister No problems noted. Sister No problems noted. Sister Cirrhosis of liver not due to alcohol Daughter No problems noted. 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 Sexual orientation: Straight/Heterosexual Gender identity: Female Cognitive needs: No Hearing needs: No Vision needs: Yes (wears glasses) Female Reproductive History Menstrual Age of Menarche: 12 Questionnaire Thrive Questionnaire Date Thrive assessed: 09/02/24 I am a: Patient What is your living situation today?: I have a steady place to live Within the past 12 months, did the food you bought not last and you didn't have the money to get more?: Never true Within the past 12 months, did you worry whether your food would run out before you got money to buy more?: Never true Do you have trouble paying for medicines?: No Do you have trouble getting transportation to medical appointments?: No Do you have trouble paying your heating and electricity bill?: No Do you have trouble taking care of your child, family member or friend?: No Do you have trouble with day-to-day activities such as bathing, preparing meals, shopping, managing finances, etc.?: No Are you currently unemployed and looking for a job?: No Are you interested in more education?: No Please select the resources that you would like help with: None Currently or been in a relationship where the following occur: No concerns reported THRIVE Score: 0 GRAYSON-7 AMB Questionnaire GRAYSON-7 Date GRAYSON - 7 assessed: 09/03/24 Source: Developed by Drs. Addi Albright, Yaritza Johnson, Joseph Dey and colleagues, with an educational chrsi from [employer]. Physical exam (Primary Care) Vital Signs: Last Vital Signs Temp 97.2 F 01/16/25 08:33 Pulse 97 01/16/25 08:33 Resp 12 01/16/25 08:33 BP 118/70 01/16/25 08:33 Pulse Ox 59 L 01/16/25 08:33 Oxygen Delivery Method Room Air 01/16/25 08:33 BMI result Body Mass Index 31.6 Tobacco/Smoking Status: Tobacco use Status Tobacco use date assessed 01/16/25 01/16/25 08:32 Patient Tobacco Use Status Never used Tobacco 01/16/25 08:32 e-Cigarette/Vaping Use Never Used 01/16/25 08:32 Thrive Assessment: Date of Thrive Assessment Date Thrive assessed 09/02/24 01/16/25 08:32 Currently or been in a relationship where the following occur: No concerns reported Results Reviewed Results Reviewed: Laboratory 01/10/25 Result Units Range Interpretation Provider Comments Sodium Level 141 mmol/L (135-145) Potassium Level 4.6 mmol/L (3.3-5.1) Chloride Level 106 mmol/L (96-108) Carbon Dioxide Level 29 mmol/L (22-29) Anion Gap 11 (12-20) Low Blood Urea Nitrogen 14 mg/dL (9-16) Creatinine 0.80 mg/dL (0.5-1.4) Estimated Creatinine Clearance Calc Not Reportable Estimat Glomerular Filtration Rate > 60 Random Glucose 108 mg/dL (60-115) Calcium Level 9.6 mg/dL (8.4-10.2) Total Bilirubin 1.0 mg/dL (0.0-1.0) Aspartate Amino Transf (AST/SGOT) 35 U/L (5-31) High Alanine Aminotransferase (ALT/SGPT) 33 U/L (0-31) High Alkaline Phosphatase 75 U/L (39-117) Total Protein 7.5 g/dL (6.5-8.0) Albumin 4.2 g/dL (3.5-5.0) Triglycerides Level 84 mg/dL (<150) Cholesterol Level 174 mg/dL (<200) LDL Cholesterol, Calculated 108 mg/dL (<100) High HDL Cholesterol 50 mg/dL (>40) 25-Hydroxy Vitamin D Total 26.5 ng/mL (>30) Low Coding Level of Care Code Est Pt Level 5 (79220) Complex visit Add On G2211 Diagnoses Vitamin D deficiency E55.9 Coronary artery disease involving [place] coronary artery of [place] heart without angina pectoris I25.10 Coronary Disease-Associated Artery/Lesion type: [place] artery [place] vs. transplanted heart: [place] heart Associated angina: without angina Hepatic steatosis K76.0 GRAYSON (generalized anxiety disorder) F41.1 Microscopic hematuria R31.29 Acute bacterial bronchitis J20.8; B96.89 Assessment & Plan Assessment & Plan (1) Vitamin D deficiency: Comment: DEXA ordered. done in follow up 2024 at [facility]. Code(s): E55.9 - Vitamin D deficiency, unspecified Category: Medical (2) CAD (coronary artery disease): Comment: noted on ct abd 08/2024 mild Code(s): I25.10 - Atherosclerotic heart disease of [place] coronary artery without angina pectoris Category: Medical Qualifiers: Coronary Disease-Associated Artery/Lesion type: [place] artery [place] vs. transplanted heart: [place] heart Associated angina: without angina Qualified Code(s): I25.10 - Atherosclerotic heart disease of [place] coronary artery without angina pectoris (3) Hepatic steatosis: Comment: noted on ct abd 08/2024 Code(s): K76.0 - Fatty (change of) liver, not elsewhere classified Category: Medical (4) GRAYSON (generalized anxiety disorder): Code(s): F41.1 - Generalized anxiety disorder Category: Medical (5) Microscopic hematuria: Comment: ct 08/2024 [place] [facility] [place] Code(s): R31.29 - Other microscopic hematuria Category: Medical (6) Acute bacterial bronchitis: Code(s): J20.8 - Acute bronchitis due to other specified organisms; B96.89 - Other specified bacterial agents as the cause of diseases classified elsewhere Plan . Orders: Orders Lipid Panel 3 Months E55.9 - Vitamin D deficiency, unspecified, I25.10 - Atherosclerotic heart disease of [place] coronary artery without angina pectoris, K76.0 - Fatty (change of) liver, not elsewhere classified Vitamin D 25-OH Total 3 Months E55.9 - Vitamin D deficiency, unspecified, I25.10 - Atherosclerotic heart disease of [place] coronary artery without angina pectoris, K76.0 - Fatty (change of) liver, not elsewhere classified Comprehensive Met. Panel 3 Months E55.9 - Vitamin D deficiency, unspecified, I25.10 - Atherosclerotic heart disease of [place] coronary artery without angina pectoris, K76.0 - Fatty (change of) liver, not elsewhere classified Medications: New cholecalciferol (vitamin D3) 50 mcg PO DAILY 90 caps 2RF azithromycin For 250 mg dose pack: take 500 mg today (day 1), then 250 mg for 4 days (days 2-5) PO 6 tabs 0RF 5 days
[2025-01-16 08:33] VITALS: BP 118/70; PULSE 97; RESP 12; TEMP 36.2; O2SAT 95; BMI 31.6
--- OUTSIDE RECORDS SUMMARY | 2025-01-16 08:50 | XMS_ITS | Clinical Summary ---
Author Organization [facility] Address [address] [address] Phone Care Team Providers Care Warehouse Operations Associate Name Role Phone Reyna Garvin SUPERVISOR SECURITIES VAULT Primary Care Provider Allergies No known active [...] Office Visit [facility] [address] [address] Shelli Franco CNP Fever, unspecified (Primary Dx); [...] & B/RSV (Cepheid) (12/19/2024 12:36 PM EDT) [facility] RSV PCR Negative Negative [facility] SARS-CoV-2 (COVID-19) Negative Negative [facility] POC Influenza A PCR Negative Negative [facility] Influenza B PCR Negative Negative [facility] 12/19/2024 12:3 6 PM EDT 12/19/2024 1:16 PM EDT Shelli Franco FIRE PREVENTION FORESTER LAB POCT ENTER/EDIT ORDERAB LES Final Result [facility] [address] [id number], [facility] [phone] from Last 3 Months Insurance [facility] Care Teams Warehouse Operations Associate Relationship Specialty Start Date End Date Reyna Garvin NP [address] [place] [id number] [email or web address] PCP - General Nurse Practitioner 03/23/24 Additional Source Comments The information contained in this document represents components of the legal health record. It is not the complete legal health record.[facility]
== END 2025-01-16 09:16 | disposition home or self-care (01) ==
LOC: HO.HMCFM 08:27
PROVIDERS: PCP Nurse Practitioner Family; Visit Provider Nurse Practitioner Family
DX: E55.9 Vitamin D deficiency, unspecified (principal); I25.10 Atherosclerotic heart disease of native coronary artery without angina pectoris; K76.0 Fatty (change of) liver, not elsewhere classified; F41.1 Generalized anxiety disorder; R31.29 Other microscopic hematuria; J20.8 Acute bronchitis due to other specified organisms; B96.89 Other specified bacterial agents as the cause of diseases classified elsewhere

== ENCOUNTER 2025-02-12 10:45 | Outpatient (AMB) | payer BC, SELFPAY ==
--- NOTE | 2025-02-12 10:51 | MHC.OFFVIS ---
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 Scott. She has a past medical history of right-sided breast cancer. She presents to the office today for follow-up of her microscopic hematuria and recurrent urinary tract infections. In discussion with the patient today she denies having had any bothersome urinary issues or concerns. She discusses her excitement regarding the of her grandson within the next few days. In office urinalysis results reviewed with the patient today. No microscopic hematuria noted. Previous workup has included a CT 07/15 no urinary tract stone or obstruction. Mild distention of the bladder. We did discussed at length potential causes of microscopic hematuria as well as urinary tract infections. She denies any previous history of nicotine dependence and or workplace chemical exposure. She does report a history of stress incontinence after childbirth however does not find this bothersome at this time. She otherwise denies urinary urgency, urinary frequency, incontinence, nocturia, hematuria, dysuria, foul smelling urine, changes to urinary stream, flank pain, fever, and or chills. She is happy with her current voiding parameters. She denies having had any bothersome lower urinary tract symptoms. All questions were answered. She otherwise offers no other issues or concerns at this time. Cytology 11/15 Negative for high-grade urothelial carcinoma [facility] Medical History History of mammogram (~08/2024) Abnormal mammogram of left breast Moderate right ankle sprain Encounter for general adult medical examination without abnormal findings History of superficial phlebitis Breast cancer, right Surgical History (Updated 09/03/24 @ 14:54 by Reyna Scott [facility]) H/O colonoscopy (~2019) S/P breast biopsy, left History of lumpectomy of right breast H/O left knee surgery Family History Mother Breast cancer Paternal Grandfather Heart problem Sister Cirrhosis of liver not due to alcohol Sister No problems noted. Sister No problems noted. Sister No problems noted. Sister Cirrhosis of liver not due to alcohol Daughter No problems noted. 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 Sexual orientation: Straight/Heterosexual Gender identity: Female Cognitive needs: No Hearing needs: No Vision needs: Yes (wears glasses) Female Reproductive History Menstrual Age of Menarche: 12 Review of Systems Const All systems reviewed & are unremarkable except as noted in HPI and below Physical Exam Const General: cooperative, healthy appearing, comfortable, no acute distress, well developed, alert and awake Orientation/consciousness: patient oriented x3 Limitations: no limitations HEENT Head: Yes normal to inspection, Yes normocephalic and Yes atraumatic Ears: hearing grossly normal bilaterally Eyes General: appearance normal, both eyes and all related structures Neck Neck: Yes normal visual inspection and Yes trachea midline Chest Chest palpation & inspection: normal inspection of the chest Resp Effort & Inspection: normal respiratory effort and able to speak in complete sentences Cardio Rate: regular rate GI Inspection: Yes normal to inspection General: Yes no CVA tenderness Back/Spine/Pelvis Back: no CVA tenderness Skin General skin exam: no rashes or lesions noted Neuro General: patient oriented x3 Extrem General: Yes normal to inspection Psych Appearance: grossly normal and well kempt Mental Status: mental status grossly normal Speech and movement: Normal speech and movement present and Clear speech present Affect: normal affect Attitude: cooperative Thought process: Normal thought process present Thought content: Normal thought content present Insight: Fair insight present (Psych) Judgement: Fair judgement present (Psych) Office Procedures Post Void Residual Post Residual Void Post Void Residual (PVR): 0 [id number]-[id number] Void Residual by ultrasound Results AMB Urinalysis, Automated UA Leukoctes 0 Deangelo/uL Last Edit by SIMIN Cartwright on 02/12/25 11:04 UA Nitrite Negative Last Edit by SIMIN Cartwright on 02/12/25 11:04 UA Urobilinogen 0.2 mg/dL Last Edit by Larissa Molina CCM on 02/12/25 11:04 UA Protein 0 mg/dL Last Edit by Larissa Molina CCM on 02/12/25 11:04 UA pH 6.0 Last Edit by Larissa Molina CCM on 02/12/25 11:04 UA Blood 0 Jatnider/uL Last Edit by SIMIN Cartwright on 02/12/25 11:04 UA Specific [place] 1.015 Last Edit by Larissa Molina CCM on 02/12/25 11:04 UA Ketone Negative Last Edit by Larissa Molina CCM on 02/12/25 11:04 UA Bilirubin 0 mg/dL Last Edit by Larissa Molina CCM on 02/12/25 11:04 UA Glucose 0 mg/dL Last Edit by Larissa Molina CCM on 02/12/25 11:04 Results Reviewed Results Reviewed: Laboratory Last Values Urine pH (Auto) 6.0 02/12/25 10:57 Specific [place] (Auto) 1.015 02/12/25 10:57 Urine Protein (Auto) 0 mg/dL 02/12/25 10:57 Glucose (UA)(Auto) 0 mg/dL 02/12/25 10:57 Urine Ketones (Auto) Negative 02/12/25 10:57 Urine Blood (Auto) 0 Jatinder/uL 02/12/25 10:57 Urine Nitrite (Auto) Negative 02/12/25 10:57 Urine Bilirubin (Auto) 0 mg/dL 02/12/25 10:57 Urine Urobilinogen (Auto) 0.2 mg/dL 02/12/25 10:57 Leukocyte Esterase (Auto) 0 Deangelo/uL 02/12/25 10:57 Assessment & Plan Assessment & Plan (1) Microscopic hematuria: Comment: ct 08/2024 [place] [facility] [place] Code(s): R31.29 - Other microscopic hematuria Category: Medical Plan In office urinalysis results with the patient today; as noted above; no microscopic hematuria noted PVR 0 mL. Previous urine cytology results reviewed with the patient today. All questions were answered. We discussed importance of adequate hydration. All questions were answered. She currently denies any bothersome urinary issues. She reports be happy with current voiding parameters. Will continue with surveillance monitoring. Follow-up in 6 months; or sooner with any issues, concerns, and or questions. Orders: Orders AMB Urinalysis Automated Today Z13.9 - Encounter for screening, unspecified Patient Instructions: The patient had an opportunity to ask questions regarding the treatment plan. All questions were answered. Physical exam, labs, and imaging were discussed and reviewed in detail. As well as risks, benefits, and discussion of treatment choices. No major barriers to understanding were identified. The patient expressed understanding and agreement with the above treatment plan. The patient was made aware they should contact our office by phone for worsening of their current condition, the appearance of new symptoms, or with any questions or concerns. Compliance is encouraged with any medications and follow up testing that is ordered. It is a privilege to be allowed the opportunity to participate in? your urological care.? Again, if you have any questions or concerns If you have any questions or concerns please do not hesitate to contact me. The office is [phone]. This note is constructed using voice recognition software. While every effort has been made to ensure accuracy locks tender errors may have been included. Yours sincerely, RAMIREZ Stevens Coding Level of Care Code Est Pt Level 3 (59360) Add On Problem Visit Only Diagnoses Microscopic hematuria R31.29 CPT Codes Post Residual Void - PVR CPT Code: 59048-Qwco Void Residual by ultrasound ([id number])
--- OUTSIDE RECORDS SUMMARY | 2025-02-12 12:05 | XMS_ITS | Clinical Summary ---
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 Name Role Phone Reyna Garvin TRAY DRIER Primary Care Provider Allergies No known active [...] Description 12/19/2024 12:40 PM EDT Office Visit [facility] at [address] [address] Shelli Franco CNP Fever, unspecified (Primary Dx); [...] & B/RSV (Cepheid) (12/19/2024 12:36 PM EDT) [facility] RSV PCR Negative Negative [facility] SARS-CoV-2 (COVID-19) Negative Negative [facility] POC Influenza A PCR Negative Negative [facility] Influenza B PCR Negative Negative [facility] 12/19/2024 12:3 6 PM EDT 12/19/2024 1:16 PM EDT Shelli Franco STEM TEACHER LAB POCT ENTER/EDIT ORDERAB LES Final Result [facility] [address] [id number], [facility] [phone] from Last 3 Months Insurance [facility] Care Teams Canceling Machine Operator Relationship Specialty Start Date End Date Reyna Garvin NP [address] [place] [id number] [email or web address] PCP - General Nurse Practitioner 03/23/24 Additional Source Comments The information contained in this document represents components of the legal health record. It is not the complete legal health record.[facility]
== END 2025-02-12 11:52 | disposition home or self-care (01) ==
LOC: HO.HUSH 10:45
PROVIDERS: PCP Nurse Practitioner Family; Visit Provider Nurse Practitioner Family
DX: Z13.9 Encounter for screening, unspecified (principal); R31.29 Other microscopic hematuria
CPT/HCPCS: 99213

== ENCOUNTER → 2025-02-12 10:45 | Outpatient (BNVA) | payer BC, SELFPAY | PROVIDERS: PCP Nurse Practitioner Family; Visit Provider Nurse Practitioner Family | DX: R31.29 Other microscopic hematuria (principal) | CPT/HCPCS: 51798; 81003 ==